=== PATIENT | female | born 1965 | race African-American/Black ===

== ENCOUNTER → 2018-12-17 | Outpatient (CLI) | payer OTHER ==
[~2018-12-17] MED LIST: ALEV220C2 PO; ATEN50TA2 PO; ATOR1TAB21 PO; BIOT1TAB PO; CENTTAB12 PO; DICL75TA PO; ESOM0.1C PO; FISH100049 PO; LEVO112T2; LEVO137T2 PO; LISI40TA PO; NIFE30TA50 PO; NORC1TAB4 PO; PANT20TA2; TAMO10TA PO
--- NOTE | 2018-12-17 17:55 | REP ---
LEFT KNEE, FIVE VIEWS: HISTORY: Knee pain. There is no acute fracture or dislocation. There is minimal narrowing of the medial knee joint space. The lateral knee joint space and patellofemoral joint space are normal in appearance. IMPRESSION: Degenerative change as described above. Electronically Signed by Luke Srivastava MD 12/17/2018 05:55 P
== END ==
LOC: M WUC 17:05
PROVIDERS: ATTEND Physician Assistant
DX: M17.12 Unilateral primary osteoarthritis, left knee (principal); M25.562 Pain in left knee

== ENCOUNTER 2018-12-18 15:45 | Emergency (ER) | payer OTHER ==
[~2018-12-18] VITALS: Ht 162.6 cm; Wt 63.6 kg
[~2018-12-18 15:45] MED LIST changes: -DICL75TA PO; -LEVO112T2; -PANT20TA2
[2018-12-18] MEDS ORDERED: PANT20TA2 (15:56)
[2018-12-18] MEDS ORDERED: LEVO112T2 (15:56)
[2018-12-18] MEDS ORDERED: DICL75TA PO (18:16)
[2018-12-18 18:30] VITALS: BP 114/68
== END 2018-12-18 18:32 | disposition home or self-care (01) ==
LOC: M ED 15:45
DX: M25.562 Pain in left knee (principal); R93.7 Abnormal findings on diagnostic imaging of other parts of musculoskeletal system; I10 Essential (primary) hypertension; E03.9 Hypothyroidism, unspecified; Z79.890 Hormone replacement therapy; Z79.899 Other long term (current) drug therapy

== ENCOUNTER → 2019-04-15 | Outpatient (CLI) | payer OTHER ==
[~2019-04-15] MED LIST changes: +DICL75TA PO; +GASTROGRAFIN SOLUTION 30ML (Q9963) As Ordered ONE; +ISOVUE-370 76% 100ML VIAL (Q9967) As Ordered ONE; +LEVO112T2 PO; +MULTTAB61 PO; +NAPR220C14 PO; -NORC1TAB4 PO; +NORC1TAB7 PO; +PANT20TA2 PO
--- NOTE | 2019-04-15 16:23 | REP ---
Clinical: Abnormal weight loss. Technique: Axial contrast enhanced images from the lung bases to the pubic symphysis using oral (per protocol) and 100 ml Isovue 370 intravenous contrast material with precontrast and delayed images of the abdomen as well as coronal and sagittal re-formations. Findings: Lung bases are clear. Visualized heart and pericardium normal. Mild fatty infiltration to the liver noted without focal hepatic lesion. Spleen, pancreas, gallbladder, bilateral adrenal glands and kidneys are normal. The enteric system is without obstruction or acute inflammatory process. Normal terminal ileum and appendix identified in the right lower quadrant. Pelvis demonstrates normal bladder and age-appropriate uterus/adnexa. Small uterine calcification may reflect myomatous changes. No pelvic fluid or ascites. No free air. No adenopathy. Abdominal aorta and vasculature normal. Surrounding musculoskeletal structures are intact and without focal osseous abnormality. Impression: Fatty infiltration to the liver. No acute abdominopelvic pathology appreciated. Electronically Signed by Girma Desir MD 04/15/2019 04:15 P
== END ==
LOC: M RAD 08:53
PROVIDERS: ATTEND Internal Medicine Gastroenterology
DX: K76.0 Fatty (change of) liver, not elsewhere classified (principal)
CPT/HCPCS: 74178; Q9963; Q9967

== ENCOUNTER 2019-06-05 09:45 | Day surgery (SDC) | payer OTHER ==
[~2019-06-05] VITALS: Ht 162.6 cm; Wt 60.8 kg
[~2019-06-05 09:45] MED LIST changes: +FERR325T18 PO; +FOLI1TAB11 PO; -GASTROGRAFIN SOLUTION 30ML (Q9963) As Ordered ONE; -ISOVUE-370 76% 100ML VIAL (Q9967) As Ordered ONE; +NS 1,000 ML IV ONE
--- NOTE | 2019-06-05 11:13 | ROOR ---
Patient Name: Yael Gill Procedure Date: 06/05/2019 10:46 AM Date of : 1965 Age: 53 Room: [facility] Gender: Female Note Status: Finalized Procedure: Upper GI endoscopy Indications: Heme positive stool, Weight loss Providers: Erich PIERCE MD Referring MD: CHARANJIT DONOHUE MD Requesting Provider: Medicines: Monitored Anesthesia Care Complications: No immediate complications. Procedure: Pre-Anesthesia Assessment: - The heart rate, respiratory rate, oxygen saturations, blood pressure, adequacy of pulmonary ventilation, and response to care were monitored throughout the procedure. The Endoscope was introduced through the mouth, and advanced to the second part of duodenum. The upper GI endoscopy was accomplished without difficulty. The patient tolerated the procedure well. Findings: The esophagus was normal. The stomach was normal. The examined duodenum was normal. Impression: - Normal esophagus. - Normal stomach. - Normal examined duodenum. - No specimens collected. Recommendation: - Perform a colonoscopy today. Erich Pierce MD Erich PIERCE MD 06/05/2019 11:12:35 AM Electronically signed by Erich PIERCE MD Number of Addenda: 0 Note Initiated On: 06/05/2019 10:46 AM Estimated Blood Loss: Estimated blood loss: none.
--- NOTE | 2019-06-05 11:31 | ROOR ---
Patient Name: Yael Gill Procedure Date: 06/05/2019 10:47 AM Date of : 1965 Age: 53 Room: [facility] Gender: Female Note Status: Finalized Procedure: Colonoscopy Indications: Heme positive stool, Weight loss Providers: Erich PIERCE MD Referring MD: CHARANJIT DONOHUE MD Requesting Provider: Medicines: Monitored Anesthesia Care Complications: No immediate complications. Procedure: Pre-Anesthesia Assessment: - The heart rate, respiratory rate, oxygen saturations, blood pressure, adequacy of pulmonary ventilation, and response to care were monitored throughout the procedure. The Colonoscope was introduced through the anus and advanced to 15 cm into the ileum. The colonoscopy was performed without difficulty. The patient tolerated the procedure well. The quality of the bowel preparation was good. Findings: The perianal and digital rectal examinations were normal. The colon (entire examined portion) appeared normal. The terminal ileum appeared normal. Small Internal Hemorrhoids. Impression: - Small Internal Hemorrhoids. - The entire colon is normal. - The examined portion of the ileum was normal. - No specimens collected. Recommendation: - Patient has a contact number available for emergencies. The signs and symptoms of potential delayed complications were discussed with the patient. Return to normal activities tomorrow. Written discharge instructions were provided to the patient. - Return to referring physician as previously scheduled. Erich Pierce MD Erich PIERCE MD 06/05/2019 11:30:46 AM Electronically signed by Erich PIERCE MD Number of Addenda: 0 Note Initiated On: 06/05/2019 10:47 AM Estimated Blood Loss: Estimated blood loss: none.
[2019-06-05 11:45] VITALS: BP 148/97
== END 2019-06-05 12:02 | disposition home or self-care (01) ==
LOC: M OPP 09:45
PROVIDERS: ATTEND Internal Medicine Gastroenterology
DX: K64.8 Other hemorrhoids (principal); R19.5 Other fecal abnormalities; R63.4 Abnormal weight loss; Z87.891 Personal history of nicotine dependence

== ENCOUNTER → 2019-08-13 | Outpatient (CLI) | payer OTHER ==
[~2019-08-13] MED LIST changes: +ISOVUE-370 76% 100ML VIAL (Q9967) As Ordered ONE; -NS 1,000 ML IV ONE
--- NOTE | 2019-08-14 05:24 | REP ---
Clinical: Follow-up nodule. Technique: Axial contrast enhanced images from the thoracic inlet to the upper abdomen with coronal and sagittal re-formations using 100 ml Isovue 370 intravenous contrast material. Findings: Lung tinajero are well-aerated, symmetric and clear. No consolidation, nodule or mass lesion. No effusion. No pneumothorax. Mediastinum demonstrates normal thoracic aorta, pulmonary vasculature and heart/pericardium. No adenopathy. Tracheobronchial tree is patent. Surrounding musculoskeletal structures are intact. Impression: Normal contrast enhanced chest CT. Electronically Signed by Girma Desir MD 08/14/2019 05:15 A
== END ==
LOC: M RAD 17:21
PROVIDERS: ATTEND Family Medicine
DX: R91.8 Other nonspecific abnormal finding of lung field (principal)

== ENCOUNTER → 2019-11-12 | Outpatient (CLI) | payer OTHER ==
[~2019-11-12] MED LIST changes: -ISOVUE-370 76% 100ML VIAL (Q9967) As Ordered ONE
[2019-11-12 13:33] LABS: FREE T4 0.94 NG/DL (0.76-1.46); THYROID STIMULATING HORMONE 0.519 uIU/ML (0.358-3.740)
== END ==
LOC: M LAB 12:16
PROVIDERS: ATTEND Internal Medicine Gastroenterology
DX: R19.7 Diarrhea, unspecified (principal)

== ENCOUNTER → 2019-11-13 | Outpatient (REF) | payer OTHER | LOC: M LAB REF 14:22 | PROVIDERS: ATTEND Internal Medicine Gastroenterology | DX: R19.7 Diarrhea, unspecified (principal) ==

== ENCOUNTER 2020-08-05 14:49 | Inpatient (IN) | payer OTHER ==
[~2020-08-05] VITALS: Ht 162.6 cm; Wt 65.1 kg
[~2020-08-05 14:49] MED LIST changes: -PANT20TA2 PO; +PANT20TA6 PO
[2020-08-05] MEDS ORDERED: NS 1,000 ML IV ONE ×3 (15:00→17:00)
[2020-08-05] MEDS ORDERED: E-Z-PAQUE 96% w/w SUSP 176GM BTL As Ordered ONE (15:07)
[2020-08-05] MEDS ORDERED: E-Z-HD 98% w/w 340GM SUSP BTL As Ordered ONE (15:07)
[2020-08-05] MEDS ORDERED: E-Z-GAS II EFFERVESCENT PACKET (SODIUM BICARB./CITRIC ACID/SIMETHICONE) As Ordered ONE (15:07)
[2020-08-05] MEDS ORDERED: FAMO1TAB11 PO (15:23)
[2020-08-05 15:26] LABS: BASO % 0.3 % (0.0-1.0); EOS # 0.1 10^3/uL (0.0-0.5); EOS % 0.9 % (0.0-3.0); HEMATOCRIT 32.9 % (36.0-47.0); HEMOGLOBIN 11.3 g/dl (12.0-15.5); LYMPH % 15.9 % (24.0-44.0); MEAN CORPUSCULAR HEMOGLOBIN 35.5 pg (27.0-33.0); MEAN CORPUSCULAR HGB CONC 34.3 g/dl (32.0-36.5); MEAN CORPUSCULAR VOLUME 103.5 fl (80.0-96.0); MONO # 0.6 10^3/uL (0.0-0.8); MONO % 9.4 % (0.0-5.0); NEUTROPHILS # 4.7 10^3/uL (1.5-8.5); NEUTROPHILS % 72.7 % (36.0-66.0); PLATELET COUNT, AUTOMATED 177 10^3/uL (150-450); RED BLOOD COUNT 3.18 10^6/uL (4.00-5.40); WHITE BLOOD COUNT 6.5 10^3/uL (4.0-10.0)
[2020-08-05 16:08] LABS: ALBUMIN 3.2 GM/DL (3.2-5.2); ALT/SGPT 93 U/L (12-78); BILIRUBIN,DIRECT 0.4 MG/DL (0.0-0.2); BLOOD UREA NITROGEN 32 MG/DL (7-18); CARBON DIOXIDE LEVEL 32 MEQ/L (21-32); CHLORIDE LEVEL 87 MEQ/L (98-107); CK-MB VALUE MASS < 1.0 NG/ML (<3.6); CPK CREATINE PHOSPHOKINASE 83 U/L (26-192); CREATININE FOR GFR 6.64 MG/DL (0.55-1.30); GLOMERULAR FILTRATION RATE 8.4 (>51); GLUCOSE, FASTING 93 MG/DL (70-100); LIPASE 457 U/L (73-393); POTASSIUM SERUM 2.7 MEQ/L (3.5-5.1); SODIUM LEVEL 132 MEQ/L (136-145); TROPONIN I < 0.02 NG/ML (< 0.10)
[2020-08-05] MEDS ORDERED: POTASSIUM CHLORIDE 10% LIQ 20 MEQ/15 ML UDC PO ONE ×2 (17:00→19:00)
[2020-08-05] MEDS ORDERED: POTASSIUM CHLORIDE 10% LIQ 20 MEQ/15 ML UDC PO SCH (17:00)
[2020-08-05] MEDS ORDERED: ONDANSETRON 4MG/2ML VIAL IV PRN (17:00)
[2020-08-05] MEDS ORDERED: ACET500T15 PO (17:45)
--- NOTE | 2020-08-05 17:45 | REPVR ---
PROCEDURE INFORMATION: Exam: CT Abdomen And Pelvis Without Contrast Exam date and time: 08/05/2020 4:35 PM Age: 54 years old Clinical indication: Abnormal findings; Abnormal lab test; Abnormal kidney function lab tests; Additional info: Renal failure TECHNIQUE: Imaging protocol: Computed tomography of the abdomen and pelvis without contrast. Radiation optimization: All CT scans at this facility use at least one of these dose optimization techniques: automated exposure control; mA and/or kV adjustment per patient size (includes targeted exams where dose is matched to clinical indication); or iterative reconstruction. COMPARISON: CT ABD PELVIS W/O FOL BY WIT 04/15/2019 10:44 AM Stomach and bowel: On the client executive image there is a large amount of barium throughout the stomach and small bowel and right colon. Because of the high concentration of barium within the bowel the CT scan of the abdomen was canceled immediately after the client executive image was obtained. There are no CT images to evaluate. IMPRESSION: Only a single client executive image was obtained and the patient had a large concentration of barium through the bowel from a recent esophagram. Therefore the CT portion of the exam was canceled. Electronically signed by: Toni Blair On 08/05/2020 17:45:07 PM
--- NOTE | 2020-08-05 17:58 | REPVR ---
PROCEDURE INFORMATION: Exam: US Retroperitoneal Limited, Kidneys Exam date and time: 08/05/2020 4:52 PM Age: 54 years old Clinical indication: Condition or disease; Other: Jaret TECHNIQUE: Imaging protocol: Real-time ultrasound of the retroperitoneum with image documentation. Examination was focused on the kidneys. COMPARISON: CT ABD PELVIS W/O CONTRAST 08/05/2020 4:36 PM FINDINGS: Right kidney: The right kidney is normal in size and echogenicity, measuring 10.6 x 5.5 x 4.7 cm. No hydronephrosis. No echogenic shadowing foci to suggest renal calculi. Left kidney: The left kidney is normal in size and echogenicity, measuring 10.8 x 5.4 x 5.4 cm. No hydronephrosis. No echogenic shadowing foci to suggest renal calculi. Incidental note of a prominent column of Nestor. Bladder: Bladder is grossly unremarkable. Bilateral ureteral jets were visualized. IMPRESSION: 1. Normal kidneys bilaterally. No hydronephrosis. Electronically signed by: Komal Quezada On 08/05/2020 17:58:13 PM
--- NOTE | 2020-08-05 18:14 | REPVR ---
PROCEDURE INFORMATION: Exam: CT Neck Without Contrast Exam date and time: 08/05/2020 5:32 PM Age: 54 years old Clinical indication: Dysphagia / difficulty swallowing TECHNIQUE: Imaging protocol: Computed tomography images of the neck without contrast. Radiation optimization: All CT scans at this facility use at least one of these dose optimization techniques: automated exposure control; mA and/or kV adjustment per patient size (includes targeted exams where dose is matched to clinical indication); or iterative reconstruction. COMPARISON: 1. XA Esophagram Barium Swallow 08/05/2020 3:40 PM 2. SR - CT Chest with contrast 08/13/2019 6:01:12 PM FINDINGS: Nasopharynx: Unremarkable. Oropharynx: Unremarkable. No significant tonsillar enlargement. Hypopharynx: Unremarkable. Larynx: Unremarkable. Normal epiglottis. Retropharyngeal space: Unremarkable. Submandibular/Parotid glands: Normal. Glands are normal in size. Thyroid: Normal. No enlarged or calcified nodules. Lymph nodes: Unremarkable. No lymphadenopathy. Trachea: Visualized trachea is unremarkable. Lungs: There is biapical nodular pleuroparenchymal scarring again seen. Bones/joints: Unremarkable. No acute fracture. Soft tissues: Unremarkable. No significant soft tissue swelling. IMPRESSION: No acute findings. Electronically signed by: Komal Quezada On 08/05/2020 18:14:27 PM
[2020-08-05 18:26] LABS: IONIZED CALCIUM 4.2 MG/DL (4.5-5.3)
[2020-08-05 18:42] VITALS: BP 134/83
[2020-08-05] MEDS: METOCLOPRAMIDE INJ 10MG/2ML VIAL (J2765 PER 1) IV SCH ×2 (18:50→21:18)
[2020-08-05 20:00] VITALS: BP 107/65
[2020-08-05 20:29] LABS: HEPATITIS A ANTIBODY IGM NEGATIVE (NEGATIVE); HEPATITIS B CORE ANTIBODY IGM NEGATIVE (NEGATIVE); HEPATITIS B SURFACE ANTIGEN NEGATIVE (NEGATIVE); HEPATITIS C VIRUS ABY INDEX 0.1 INDEX (<0.8)
[2020-08-05 21:41] LABS: CREATININE,RANDOM URINE 99.4 MG/DL; POTASSIUM RANDOM URINE 9.2 MEQ/L
[2020-08-05 22:24] LABS: TOTAL PROTEIN,RANDOM URINE 43.3 MG/DL (0.0-12.0)
[2020-08-06] VITALS: BP 92/54
[2020-08-06 00:32] LABS: CALCIUM LEVEL 7.6 MG/DL (8.5-10.1); CREATININE FOR GFR 3.94 MG/DL (0.55-1.30); GLOMERULAR FILTRATION RATE 15.3 (>51)
[2020-08-06 04:00] VITALS: BP 107/62
[2020-08-06 05:35] LABS: HEMOGLOBIN A1c 4.9 %
[2020-08-06 05:40] LABS: BLOOD UREA NITROGEN 24 MG/DL (7-18); C REACTIVE PROTEIN QUANTITATIV 5.47 MG/DL (0.00-0.30); CALCIUM LEVEL 7.4 MG/DL (8.5-10.1); CARBON DIOXIDE LEVEL 32 MEQ/L (21-32); CHLORIDE LEVEL 107 MEQ/L (98-107); COMPLEMENT C3 114 MG/DL (90-180); CREATININE FOR GFR 3.31 MG/DL (0.55-1.30); GLOMERULAR FILTRATION RATE 18.7 (>51); GLUCOSE, FASTING 86 MG/DL (70-100); POTASSIUM SERUM 3.3 MEQ/L (3.5-5.1); SODIUM LEVEL 142 MEQ/L (136-145)
[2020-08-06 08:00] VITALS: BP 103/59
[2020-08-06] MEDS: PANTOPRAZOLE 40MG VIAL (C9113 PER 1) IV SCH (08:24)
[2020-08-06] MEDS: METOCLOPRAMIDE INJ 10MG/2ML VIAL (J2765 PER 1) IV SCH ×4 (08:24→21:38)
[2020-08-06] MEDS: KCL 40MEQ in NS 1000ML 1,000 ML IV SCH ×2 (08:25→12:42)
[2020-08-06] MEDS ORDERED: FLUBLOK(EGG FREE)(QUAD)INFLUENZA VACC 0.5ML SYRINGE 18YRS & OLDER IM ONE (09:00)
[2020-08-06 12:00] VITALS: BP 109/63
[2020-08-06] MEDS ORDERED: FIORICET TAB PO PRN (15:15)
[2020-08-06] MEDS ORDERED: RIZATRIPTAN BENZOATE 10 MG TAB PO PRN (15:15)
[2020-08-06 16:13] LABS: CALCIUM LEVEL 8.1 MG/DL (8.5-10.1); CREATININE FOR GFR 1.87 MG/DL (0.55-1.30); GLOMERULAR FILTRATION RATE 36.2 (>51); POTASSIUM SERUM 4.1 MEQ/L (3.5-5.1)
[2020-08-06 16:21] VITALS: BP 121/74
[2020-08-06 22:00] VITALS: BP 106/69
--- NOTE | 2020-08-06 22:08 | HPE ---
DATE OF ADMISSION: 08/05/2020 CHIEF COMPLAINT: Nausea, vomiting, dysphagia, and dizziness, 25-pound weight loss. This is a 54-year-old female who presents to the emergency room with complaints of nausea and vomiting for a few days this past week, about three times or four times daily with dysphagia to solids, better with liquids for the past 2 days, feeling like food is getting stuck in her chest. She has also complained of some lightheadedness. No odynophagia. No fever, chills, or abdominal pain. She is having some loose stools again initially but has had no bowel movement all week this week. Patient feels her food is getting in her stomach. She had had decrease in oral intake but says that she is able to drink about 5-6 cups of liquids during the day despite the vomiting. At home, patient was taking her atenolol, lisinopril, and Adalat. She did have prior evaluation for dysphagia and weight loss and heme-positive stool with an esophagogastroduodenoscopy (EGD) and colonoscopy by Dr. Pierce in May 2019. Colonoscopy showed internal hemorrhoids and rectal bleed. EGD showed a normal esophagus. Patient had an esophagram that showed a hiatal hernia as well as reflux. Hospitalist was called to admit due to finding of a creatinine of 6. Patient denied any non-steroidal anti-inflammatory use and denies any prior history of any rheumatological disease in the past. No joint pains, No fever, chills, or shortness of breath. No recent travel. Patient took some Tylenol for some discomfort. Otherwise, no sore throat. PAST MEDICAL HISTORY: 1. Hypothyroidism. 2. Hypertension. 3. Internal hemorrhoids. 4. Rectal bleed due to hemorrhoids. Normal EGD. 5. Hypothyroidism. 6. Hypertension. PAST SURGICAL HISTORY: Colonoscopy and EGD, Dr. Pierce, 06/05/2019. ALLERGIES: No known drug allergies. HOME MEDICATIONS: - atenolol 50 mg daily - famotidine 20 twice a day - Synthroid 112 mcg daily - lisinopril 40 daily - nifedipine 30 mg daily - Naprosyn 220 mg as needed for pain FAMILY HISTORY: Mother and father with hypertension, diabetes. In the mother's side of the family, breast cancer. SOCIAL HISTORY: Works in the [employer] at [place]. No tobacco abuse. Drinks alcohol three times a week. Lives with her the two sons. REVIEW OF SYSTEMS: Per history of present illness (HPI). A 12-point system otherwise negative. PHYSICAL EXAMINATION: Temperature 97.5, pulse 87, respiratory rate 16, blood pressure is 89/53, 97% on room air. GENERAL: Patient is awake, alert, oriented to person, place, and time, answering questions appropriately without any respiratory distress. No jugular venous distention (JVD) or thyromegaly. Dry mucous membranes. Anicteric sclerae. Face is symmetric. Tongue is midline. No thyromegaly. LUNGS: Clear to auscultation. No wheezing, rales, or rhonchi. Air entry is equal bilaterally. No adventitious breath sounds. HEART: S1, S2, sinus rhythm. No murmurs, rubs, or gallops. ABDOMEN: Soft, nontender, nondistended. Positive bowel sounds. No costovertebral angle (CVA) tenderness. EXTREMITIES: No cyanosis, clubbing, or any pitting edema. LABORATORY DATA: White count 6.5, hemoglobin 11, hematocrit 32, platelet count 177. Sodium 132, potassium 2.7, chloride 87, bicarbonate 32, BUN 32, creatinine 6.64, glucose 93, lactic acid 2.4, calcium 9. Total bilirubin 1, direct bilirubin 0.4, AST 158, ALT 93, alkaline phosphatase 88. Total CK 83, MB fraction less than 1, troponin less than 0.02. Total protein 7, albumin 3.2. Lipase 457. ASSESSMENT AND PLAN: This is a 54-year-old female with history of hypothyroidism, hypertension, internal hemorrhoids with rectal bleed, reflux, hiatal hernia, and hypercholesterolemia who presents to the emergency room with 1-week history of nausea and vomiting at home, three to four times daily, which abated over the past 2 days with now complaints of dysphagia to solids for the past 2 days, feeling like food is getting stuck in her chest. Patient had an esophagram, which shows reflux and a hiatal hernia. Noted to have a creatinine of 6 and had been vomiting and continually using her atenolol, lisinopril, and Adalat. Hospitalist was called to admit for the following acute issues. She will be admitted as an inpatient for 2 midnights. IMPRESSION: 1. Acute kidney injury, most likely due to prerenal causes with vomiting and continued use of her lisinopril, atenolol with orthostatic hypotension. 2. Dysphagia to solids with weight loss of 25 pounds. 3. Hypokalemia secondary to vomiting. 4. Abnormal liver function tests with complaints of vomiting. 5. Hypertension, currently with normal blood pressure. 6. History of rectal bleed due to internal hemorrhoids. 7. Hypothyroidism. 8. Hiatal hernia with gastroesophageal reflux. 9. History of hypercholesterolemia. 10. A 25-pound weight loss. PLAN: Due to electrolyte abnormalities with potassium of 2.7 and creatinine of 6.64, patient will be admitted to progressive care unit (PCU) under telemetry to rule out arrhythmias with low potassium levels. She will be kept on potassium liquid due to complaints of dysphagia to solids. Metabolic panel every 6 hours until patient's potassium, magnesium, ionized calcium are within normal limits. At this time, patient's renal failure thought to be secondary to volume loss from persistent vomiting at home, most likely related to the hiatal hernia and reflux that she has had. She will be given Reglan 10 mg intravenous (IV) every 6 hours was Protonix 40 IV twice a day. Avoid nephrotoxins. Renally dose all medications. To rule out obstructive causes, will obtain renal ultrasound and Casillas catheter is to be placed with strict intake and output and daily weights. Chest x-ray has been ordered to rule out pulmonary edema, although her lungs sound clear on auscultation. At this time we will avoid nephrotoxins, and we will continue to hold her lisinopril. Due to orthostatic hypotension we will also hold her atenolol. Due to weight loss of 25 pounds, patient's thyroid stimulating hormone (TSH) and A1c will be checked to rule out new onset of diabetes or severe hypothyroidism. If patient worsens, we will consult nephrology for assistance in management. Gastrointestinal (GI) will be consulted if patient has persistent symptoms. She did have a recent EGD back in May 2019. May need to repeat if more alarm symptoms are present. Deep venous thrombosis (DVT) prophylaxis with compression stockings. Patient is a full code. Diet will be clears. Advance to renal diet. Check liver function tests. Ultrasound of the gallbladder as outpatient. Check hepatitis serology, YASMIN. Rule out rheumatologic disorder, such as lupus, in light of the creatinine being at 6. Will check an YASMIN, anti-Betancur, [id number] DNA. MTDD
[2020-08-07 00:07] LABS: CALCIUM LEVEL 7.7 MG/DL (8.5-10.1); CREATININE FOR GFR 1.49 MG/DL (0.55-1.30); POTASSIUM SERUM 3.8 MEQ/L (3.5-5.1)
[2020-08-07 06:00] VITALS: BP 116/80
[2020-08-07 06:30] LABS: CALCIUM LEVEL 7.6 MG/DL (8.5-10.1); CREATININE FOR GFR 1.25 MG/DL (0.55-1.30); GLOMERULAR FILTRATION RATE 57.6 (>51); POTASSIUM SERUM 4.1 MEQ/L (3.5-5.1)
[2020-08-07] MEDS ORDERED: REGL5TAB2 PO ×2 (08:28→09:22)
[2020-08-07] MEDS ORDERED: PRIL20TA2 PO ×2 (08:28→09:22)
[2020-08-07] MEDS ORDERED: SELF1KIT MC (08:30)
[2020-08-07] MEDS: PANTOPRAZOLE 40MG VIAL (C9113 PER 1) IV SCH (09:28)
[2020-08-07] MEDS: METOCLOPRAMIDE INJ 10MG/2ML VIAL (J2765 PER 1) IV SCH (09:29)
--- NOTE | 2020-08-07 13:07 | IPN ---
DATE: 08/06/2020 Patient's dysphagia is slightly improved. Still with some nausea without vomiting. No shortness of breath. No lightheadedness or dizziness. Output overnight was 1.1 liters, input of 1.64 liters. Currently weight is 58.1 kg. VITAL SIGNS: Temperature 98.5, pulse 73, respiratory rate 16, blood pressure 103/59, 98% on room air. GENERAL: Patient is awake, alert, oriented times three, answering questions appropriately. No icterus or jaundice. No use of respiratory accessory muscles. Speech is fluent. Tongue is midline. Moist mucous membranes. No jugular venous distention (JVD) or thyromegaly. LUNGS: Clear to auscultation. No wheezing, rales, or rhonchi. HEART: S1, S2, sinus tachycardia. No murmurs, rubs, or gallops. ABDOMEN: Soft, nontender, nondistended. Positive bowel sounds. No hepatosplenomegaly. No abdominal bruit. EXTREMITIES: No cyanosis, clubbing, or pitting edema. LABORATORY DATA: White count 6, hemoglobin 11, hematocrit 32, platelet count 177. Sodium 142, potassium 3.3, chloride 107, bicarbonate 32, BUN 24, creatinine 3.3, glucose 86, calcium 7.4. CRP of 5.4. Blood culture pending. IMAGING STUDIES: CT neck negative. Renal ultrasound normal. CT abdomen and pelvis pending report. Esophagram: Hiatal hernia, reflux. ASSESSMENT AND PLAN: A 54-year-old female with history of right breast atypical ductal hyperplasia (ADH), diagnosed in 2016, on Tamoxifen, iron deficiency anemia, hypertension, cholesterolemia, presented with a 25-pound weight loss with negative colonoscopy. Esophagogastroduodenoscopy (EGD) negative on 06/05/[address] Pierce with internal hemorrhoids causing rectal bleed, presented to the emergency room with intractable nausea, vomiting, dehydration, decreased oral intake with continued use of her lisinopril, presents with a creatinine of 0.64. IMPRESSION: 1, Acute kidney injury secondary to lisinopril, nausea, vomiting. 2. Intractable nausea and vomiting secondary to hiatal hernia and gastroesophageal reflux. 3. History of internal hemorrhoids, causing rectal bleed. 4. Chronic iron deficiency anemia. 5. History of right breast ADH. 6. Hypokalemia. 7. Hypocalcemia. PLAN: Renal ultrasound is negative. No hydronephrosis or kidney stone. Patient responded to 2 liters of fluids but still at stage V renal dysfunction. Will check UPEP and SPEP to rule out multiple myeloma. Check hemoglobin electrophoresis for anemia. Patient is responding to IV fluids. Will continue with IV fluids. Monitor for respiratory distress. Supplemented potassium this morning via IV fluids. MTDD
[2020-08-08 09:58] LABS: PTH INTACT 190.9 PG/ML (18.5-88.0); TOTAL 25(OH) VITAMIN D 12.5 NG/ML (30.0-100.0); TOTAL PROTEIN 5.3 GM/DL (6.4-8.2)
[2020-08-08 13:08] LABS: ANTINUCLEAR ANTIBODIES DIRECT Negative (Negative)
[2020-08-09 13:14] LABS: ALBUMIN 2.95 GM/DL (3.29-5.55); ALBUMIN % 55.6 % (55.8-66.1); ALPHA-1-GLOBULIN % 6.6 % (2.9-4.9); ALPHA-1-GLOBULINS 0.35 GM/DL (0.17-0.41); ALPHA-2-GLOBULINS % 15.1 % (7.1-11.8); BETA-1-GLOBULINS 0.23 GM/DL (0.28-0.60); BETA-1-GLOBULINS % 4.4 % (4.7-7.2); BETA-2-GLOBULINS % 5.6 % (3.2-6.5); GAMMA GLOBULIN % 12.7 % (11.1-18.8); GAMMA GLOBULINS 0.67 GM/DL (0.65-1.58)
[2020-08-09 16:11] LABS: HEMOGLOBIN A 97.7 % (96.4-98.8); HEMOGLOBIN A2 2.3 % (1.8-3.2); HGB SOLUBILITY Negative (Negative)
--- NOTE | 2020-08-09 16:55 | ECGEPIP ---
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
[2020-08-15 18:07] LABS: ANTI DS-DNA AB Negative (Negative); COMPLEMENT C2 2.7 mg/dL (1.4-3.3); COMPLEMENT TOTAL (CH50) 40 U/mL (>41); RNP ANTIBODY < 0.2 AI (0.0-0.9); SMITHS ANTIBODY < 0.2 AI (0.0-0.9); VITAMIN D 1,25 DIHYDROXY 38.1 pg/mL (19.9-79.3)
--- NOTE | 2020-08-23 12:13 | DSES ---
DATE OF ADMISSION: 08/05/2020 DATE OF DISCHARGE: 08/07/2020 PRIMARY DISCHARGE DIAGNOSES: 1. Hiatal hernia. 2. Severe gastroesophageal reflux disease. 3. Dysphagia to solids. 4. Acute kidney injury due to lisinopril and vomiting. 5. Vomiting secondary to reflux disease and hiatal hernia. 6. Hypokalemia secondary to vomiting. 7. Twenty-five pound weight loss. DISCHARGE MEDICATIONS: - Prilosec 20 mg daily - Reglan 5 mg before each meal nightly - Atenolol 50 daily - Famotidine 20 twice a day - Levothyroxine 112 mcg daily. - Lisinopril 40 daily. - Nifedipine 30 mg daily - Acetaminophen 1 gram q. 8 as needed for pain. DISCHARGE INSTRUCTIONS: The patient is to hold atenolol and lisinopril if systolic pressure is less than 140. If patient develops nausea or vomiting, decreased oral intake or diarrhea, patient is to hold her lisinopril. Patient is to call Dr. Pierce's office regarding dysphagia to solids for EGD and repeat biopsy. Patient to be referred to surgery for hiatal hernia to check for indication for repair. Further workup for 20 pound weight loss to be done by primary care physician and to follow up at the [facility] since Dr. Chen has left the practice. HOSPITAL COURSE: [id number]old female presented to the emergency room with one-week history of nausea and vomiting at home with continued use of lisinopril and atenolol; presented with orthostasis and hypotension; found to have acute kidney injury and was taking Naprosyn as outpatient with a creatinine of 6 and hypokalemia with potassium of 2.7 due to vomiting. She had no metabolic acidosis and no pulmonary edema; no confusion. She was admitted and started on IV fluids, remained at positive balance with 5 liters given over the past three days. Renal ultrasound had no hydronephrosis. Kidney function returned back to normal to 1.25 after hydration and supplementation for potassium with admission potassium of 2.1; discharge potassium of 4.1. Patient's atenolol and lisinopril had been held during the admission with subsequent improvement in her blood pressure from admission blood pressure of 80/51 to blood pressure 116/80. Patient was instructed to hold off on her atenolol and lisinopril for blood pressure less than 140 and to follow up as outpatient with her primary care physician within five days of discharge. PHYSICAL EXAMINATION ON DISCHARGE: Temperature 98.4, pulse 82, respiratory rate 18, blood pressure is 116/80; 100% on room air. Generally awake, alert, oriented x3; answering questions appropriately. No icterus or jaundice. Neck is supple; full range of motion. Moist mucous membranes. Lungs are clear to auscultation; no wheezing, rales or rhonchi. Heart: S1, S2; sinus rhythm. Abdomen is soft, nontender, nondistended; positive bowel sounds. Extremities: No cyanosis, clubbing or pitting edema. LABORATORY DATA: White count is 6.5, hemoglobin 11, hematocrit 32, platelet count 177. Sodium 140, potassium 4, chloride 113, bicarb 21, BUN 15, creatinine 1.25, glucose of 82. SPEP and UPEP pending. C-reactive protein 5.4. A1c was normal at 4.9. IMAGING STUDIES: CT of the neck: No acute findings. Renal ultrasound: No hydronephrosis, normal kidneys bilaterally. 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 Patient had large barium; therefore, CT portion was canceled. Esophagram: Hiatal hernia and gastroesophageal reflux disease. TIME SPENT ON DISCHARGE: Thirty (30) minutes. MTDD
--- NOTE | 2020-08-25 16:18 | REP ---
ESOPHAGRAM SINGLE CONTRAST The procedure was performed under the direct supervision of Dr. Guadarrama. The images were reviewed with Dr. Guadarrama. A single view PA chest x-ray is submitted as a speech coach film. The superior mediastinal structures are midline. The heart size is within normal limits. The lungs are clear. Liquid barium was administered in the erect and prone oblique positions in order to perform a single-contrast esophagram examination. The oral and pharyngeal stages of deglutition are unremarkable. Esophageal transport is prompt and efficient, and there is no esophagitis, stricture, or mucosal ring. There is a sliding-type hiatal hernia. There is gastroesophageal reflux demonstrated to the level of the thoracic inlet. IMPRESSION: There is a sliding-type hiatal hernia. There is gastroesophageal reflux demonstrated to the level of the thoracic inlet. Otherwise, unremarkable single- contrast esophagram examination. 0.8 minutes of fluoroscopy time was utilized for this procedure. [facility]
== END 2020-08-07 10:31 | disposition home or self-care (01) | DRG 684 ==
LOC: M ED 14:49 → M ED INP 16:53 → M PCU 18:22 → M MSPAV 08-06 16:15
PROVIDERS: ADMIT General Practice; ATTEND General Practice
DX: N17.9 Acute kidney failure, unspecified (principal); E03.9 Hypothyroidism, unspecified; I10 Essential (primary) hypertension; K64.8 Other hemorrhoids; R13.10 Dysphagia, unspecified; I95.1 Orthostatic hypotension; E87.6 Hypokalemia; K44.9 Diaphragmatic hernia without obstruction or gangrene; K21.9 Gastro-esophageal reflux disease without esophagitis; E78.00 Pure hypercholesterolemia, unspecified; R63.4 Abnormal weight loss; D50.9 Iron deficiency anemia, unspecified; R11.2 Nausea with vomiting, unspecified; E83.51 Hypocalcemia; Z79.899 Other long term (current) drug therapy

== ENCOUNTER 2020-11-22 21:14 | Emergency (ER) | payer OTHER ==
[~2020-11-22] VITALS: Ht 162.6 cm; Wt 58.6 kg
[~2020-11-22 21:14] MED LIST changes: +ACET500T15 PO; +FAMO1TAB11 PO; +PRIL20TA2 PO; +REGL5TAB2 PO; +SELF1KIT MC
[2020-11-22 21:15] VITALS: BP 130/76
[2020-11-22] MEDS ORDERED: AMOXICILLIN 500 MG CAP PO ONE (22:30)
[2020-11-22] MEDS ORDERED: AMOX500C PO (22:37)
== END 2020-11-22 22:52 | disposition home or self-care (01) ==
LOC: M ED 21:14
DX: J02.0 Streptococcal pharyngitis (principal); I10 Essential (primary) hypertension; E03.9 Hypothyroidism, unspecified; Z79.899 Other long term (current) drug therapy

== ENCOUNTER → 2021-07-27 | Outpatient (REF) | payer OTHER ==
[~2021-07-27] MED LIST changes: +AMOX500C PO; -LISI40TA PO; +LISI40TA4 PO
[2021-08-04 03:07] LABS: CALPROTECTIN STOOL 28 ug/g (0-120); PANCREATIC ELASTASE STOOL >500 (>200)
== END ==
LOC: M LAB REF 13:59
PROVIDERS: ATTEND Internal Medicine Gastroenterology
DX: R19.7 Diarrhea, unspecified (principal); R63.4 Abnormal weight loss

== ENCOUNTER → 2022-06-04 | Outpatient (CLI) | payer OTHER | LOC: M WHC 12:53 | PROVIDERS: ATTEND Family Medicine | DX: Z12.31 Encounter for screening mammogram for malignant neoplasm of breast (principal); Z78.0 Asymptomatic menopausal state ==

== ENCOUNTER 2022-09-25 07:35 | Emergency (ER) | payer OTHER, SELFPAY ==
[~2022-09-25] VITALS: Ht 162.6 cm; Wt 55.9 kg
[~2022-09-25 07:35] MED LIST changes: -TAMO10TA PO; +TAMO10TA8 PO
[2022-09-25 07:36] VITALS: BP 140/95
[2022-09-25] MEDS ORDERED: FERR325T18 PO (07:46)
[2022-09-25 11:52] LABS: BASO # 0.1 10^3/uL (0.0-0.2); BASO % 0.5 % (0.0-1.0); EOS % 0.1 % (0.0-3.0); HEMATOCRIT 32.1 % (36.0-47.0); LYMPH # 1.4 10^3/uL (1.5-5.0); LYMPH % 13.9 % (24.0-44.0); MEAN CORPUSCULAR HEMOGLOBIN 37.5 pg (27.0-33.0); MEAN CORPUSCULAR HGB CONC 34.3 g/dl (32.0-36.5); MEAN CORPUSCULAR VOLUME 109.6 fl (80.0-96.0); MONO % 9.4 % (2.0-8.0); NEUTROPHILS # 7.7 10^3/uL (1.5-8.5); NEUTROPHILS % 75.7 % (36.0-66.0); PLATELET COUNT, AUTOMATED 284 10^3/uL (150-450); RED BLOOD COUNT 2.93 10^6/uL (4.00-5.40); WHITE BLOOD COUNT 10.1 10^3/uL (4.0-10.0)
[2022-09-25 12:46] LABS: BLOOD UREA NITROGEN 8 MG/DL (7-18); CALCIUM LEVEL 8.9 MG/DL (8.5-10.1); CARBON DIOXIDE LEVEL 21 MEQ/L (21-32); CHLORIDE LEVEL 107 MEQ/L (98-107); CREATININE FOR GFR 0.92 MG/DL (0.55-1.30); GLOMERULAR FILTRATION RATE > 60.0 (>51); GLUCOSE, FASTING 115 MG/DL (70-100); POTASSIUM SERUM 3.2 MEQ/L (3.5-5.1); SODIUM LEVEL 140 MEQ/L (136-145); URIC ACID 8.9 MG/DL (2.6-6.0)
[2022-09-25] MEDS ORDERED: INDOMETHACIN 25 MG CAP PO ONE (13:30)
[2022-09-25] MEDS ORDERED: INDO50CA91 PO ×2 (13:46→14:43)
[2022-09-25] MEDS ORDERED: POTASSIUM CHLORIDE 10MEQ SR TABLET PO ONE (13:50)
== END 2022-09-25 14:40 | disposition home or self-care (01) ==
LOC: M ED 07:35
DX: M10.071 Idiopathic gout, right ankle and foot (principal); E87.6 Hypokalemia; I10 Essential (primary) hypertension; E78.5 Hyperlipidemia, unspecified; K21.9 Gastro-esophageal reflux disease without esophagitis; E03.9 Hypothyroidism, unspecified; Z79.890 Hormone replacement therapy; Z79.899 Other long term (current) drug therapy

== ENCOUNTER → 2022-10-04 | Outpatient (CLI) | payer OTHER ==
[~2022-10-04] MED LIST changes: +INDO50CA91 PO
== END ==
LOC: M RAD 15:48
PROVIDERS: ATTEND Physician Assistant Medical
DX: M19.071 Primary osteoarthritis, right ankle and foot (principal)

== ENCOUNTER → 2023-05-10 | Outpatient (CLI) | payer OTHER ==
[~2023-05-10] MED LIST changes: +NIFE-3 PO; -NIFE30TA50 PO
[2023-05-10 09:07] LABS: PERCENT SATURATION 97.7 % (13.2-45.0)
[2023-05-10 09:08] LABS: IMMUNOGLOBULIN A 263.3 MG/DL (40-350)
[2023-05-10 09:09] LABS: FOLATE 3.4 NG/ML (>5.4); FREE T4 1.22 NG/DL (0.89-1.76); THYROID STIMULATING HORMONE 0.449 uIU/ML (0.55-4.78)
[2023-05-14 17:08] LABS: GASTRIN 44 pg/mL (0-115); TISSUE TRANSGLUTAMINASE IgA <2 U/mL (0-3)
== END ==
LOC: M LAB 08:04
PROVIDERS: ATTEND Internal Medicine Gastroenterology
DX: R19.7 Diarrhea, unspecified (principal); R63.4 Abnormal weight loss; D64.9 Anemia, unspecified

== ENCOUNTER → 2023-05-22 | Outpatient (CLI) | payer OTHER ==
[~2023-05-22] MED LIST changes: +GLUCAGON INJ 1MG VIAL As Ordered ONE; +ISOVUE-370 76% 100ML VIAL As Ordered ONE; +NEULUMEX 0.1% SUSPENSION 450ML BOTTLE (FORMERLY VOLUMEN) As Ordered ONE
== END ==
LOC: M RAD 08:29
PROVIDERS: ATTEND Internal Medicine Gastroenterology
DX: R19.7 Diarrhea, unspecified (principal)

== ENCOUNTER 2023-07-02 09:16 | Day surgery (SDC) | payer OTHER ==
[~2023-07-02] VITALS: Ht 162.6 cm; Wt 53.1 kg
[~2023-07-02 09:16] MED LIST changes: -GLUCAGON INJ 1MG VIAL As Ordered ONE; -ISOVUE-370 76% 100ML VIAL As Ordered ONE; +LOPE1CAP5 PO; +MULT-90 PO; -NEULUMEX 0.1% SUSPENSION 450ML BOTTLE (FORMERLY VOLUMEN) As Ordered ONE; +NS 1,000 ML IV ONE; +SYNT150T PO
[2023-07-02 11:42] VITALS: TEMP 98.1
[2023-07-02 12:07] VITALS: BP 125/75; O2SAT 96
== END 2023-07-02 12:17 | disposition home or self-care (01) ==
LOC: M OPP 09:16
PROVIDERS: ATTEND Internal Medicine Gastroenterology
DX: K63.5 Polyp of colon (principal); Q43.8 Other specified congenital malformations of intestine; K29.70 Gastritis, unspecified, without bleeding; K22.89 Other specified disease of esophagus; R19.7 Diarrhea, unspecified; R63.4 Abnormal weight loss; Z79.1 Long term (current) use of non-steroidal anti-inflammatories (NSAID); Z79.890 Hormone replacement therapy; Z79.899 Other long term (current) drug therapy; F17.200 Nicotine dependence, unspecified, uncomplicated

== ENCOUNTER → 2023-09-04 | Outpatient (CLI) | payer OTHER ==
[~2023-09-04] MED LIST changes: +LIQUID POLIBAR PLUS 105% w/v 750ML BTL As Ordered ONE; -NS 1,000 ML IV ONE
== END ==
LOC: M RAD 08:43
PROVIDERS: ATTEND Internal Medicine Gastroenterology
DX: R63.4 Abnormal weight loss (principal); R19.7 Diarrhea, unspecified

== ENCOUNTER 2024-01-17 05:17 | Inpatient (IN) | payer OTHER ==
[2024-01-17] VITALS (48 sets, daily range): BP systolic 78–119; BP diastolic 50–75; TEMP 98.2–98.8; O2SAT 93–100
[~2024-01-17] VITALS: Ht 162.6 cm; Wt 57.8 kg
[~2024-01-17 05:17] MED LIST changes: -LIQUID POLIBAR PLUS 105% w/v 750ML BTL As Ordered ONE
[2024-01-17] MEDS: METOCLOPRAMIDE INJ 10MG/2ML VIAL IV ONE (05:59)
[2024-01-17] MEDS: NS 2,070 ML in IV 1 EA IV ONE (06:00)
[2024-01-17 06:07] LABS: BASO % 0.2 % (0.0-1.0); EOS % 0.1 % (0.0-3.0); HEMATOCRIT 24.5 % (36.0-47.0); HEMOGLOBIN 8.9 g/dl (12.0-15.5); LYMPH # 0.8 10^3/uL (1.5-5.0); LYMPH % 9.1 % (24.0-44.0); MEAN CORPUSCULAR HEMOGLOBIN 36.9 pg (27.0-33.0); MEAN CORPUSCULAR HGB CONC 36.3 g/dl (32.0-36.5); MEAN CORPUSCULAR VOLUME 101.7 fl (80.0-96.0); MONO # 0.9 10^3/uL (0.0-0.8); MONO % 11.2 % (2.0-8.0); NEUTROPHILS # 6.6 10^3/uL (1.5-8.5); NEUTROPHILS % 78.8 % (36.0-66.0); PLATELET COUNT, AUTOMATED 149 10^3/uL (150-450); RED BLOOD COUNT 2.41 10^6/uL (4.00-5.40); WHITE BLOOD COUNT 8.4 10^3/uL (4.0-10.0)
[2024-01-17] MEDS ORDERED: LORazepam 2 MG TAB PO PRN (06:45)
[2024-01-17 06:53] LABS: ALBUMIN 2.1 G/DL (3.2-5.2); BILIRUBIN,DIRECT 1.1 MG/DL (<0.4); BILIRUBIN,TOTAL 1.5 MG/DL (0.3-1.2); CALCIUM LEVEL 4.3 MG/DL (8.5-10.1); CK-MB VALUE MASS 1.3 NG/ML (<3.6); CREATININE FOR GFR 1.6 MG/DL (0.55-1.30); GLOMERULAR FILTRATION RATE 42.7 (>51); MB/CK RELATIVE INDEX 0.69 (< OR =4); POTASSIUM SERUM 2.6 MMOL/L (3.5-5.1); THYROID STIMULATING HORMONE 12.52 uIU/ML (0.55-4.78); TOTAL PROTEIN 5.1 G/DL (5.7-8.2)
[2024-01-17] MEDS ORDERED: ISOVUE-370 76% 100ML VIAL As Ordered ONE (07:37)
[2024-01-17] MEDS: NOREPINEPHRINE 4MG IN D5 250ML 4 MG in IV 1 EA IV SCH ×2 (08:08→15:06)
[2024-01-17] MEDS: NS 1,000 ML IV ONE (08:11)
[2024-01-17] MEDS: KCL 10MEQ/100ML SWI (KRUN) 10 MEQ in IV 1 EA IV ONE ×2 (08:11→09:06)
[2024-01-17] MEDS: LIDOCAINE 2% 5ML JELLY UROJET TOP ONE (08:15)
[2024-01-17 08:27] LABS: ETHYL ALCOHOL (ETHANOL) 0.005 % (0.000-0.010)
[2024-01-17 08:30] LABS: MAGNESIUM LEVEL 0.7 MG/DL (1.8-2.4)
[2024-01-17] MEDS: MAG SULF 1GM/100ML (MAG RUN) 1 GM in IV 1 EA IV ONE ×2 (08:43→10:11)
[2024-01-17 08:53] LABS: VENOUS BASE EXCESS -7.3 (-2.0-2.0); VENOUS HCO3 17.5 MMOL/L (23.0-27.0); VENOUS O2 SATURATION 98.2 % (60.0-80.0); VENOUS PARTIAL PRESSURE CO2 32.7 mmHg (38.0-50.0); VENOUS PARTIAL PRESSURE O2 145.3 mmHg (30.0-50.0); VENOUS PH 7.346 UNITS (7.330-7.430); VENOUS STANDARD HCO3 18.5 MMOL/L; VENOUS TOTAL CO2 18.5 MMOL/L (24.0-28.0)
[2024-01-17 09:10] LABS: AMPHETAMINES LEVEL URINE NEGATIVE (NEGATIVE); BARBITURATES URINE NEGATIVE (NEGATIVE)
[2024-01-17 09:11] LABS: BENZODIAZEPINES URINE NEGATIVE (NEGATIVE); CANNABINOIDS URINE NEGATIVE (NEGATIVE); COCAINE METABOLITE URINE NEGATIVE (NEGATIVE); METHADONE URINE NEGATIVE (NEGATIVE); OPIATES URINE NEGATIVE (NEGATIVE); PHENCYCLIDINE URINE NEGATIVE (NEGATIVE)
[2024-01-17] MEDS: FOLIC ACID 1MG TAB PO SCH (09:17)
[2024-01-17] MEDS: CALCIUM GLUCONATE 1,000 MG in D5W MINI-BAG PLUS 100 ML IV ONE (09:17)
[2024-01-17] MEDS: NS 1,000 ML IV SCH (09:18)
[2024-01-17 09:33] LABS: INR 1.58; PROTHROMBIN TIME 18.3 SECONDS (12.5-14.5)
[2024-01-17] MEDS: POTASSIUM CHLORIDE 10% LIQ 20MEQ/15ML UDC PO ONE (09:37)
[2024-01-17] MEDS: MULTIVITAMINS/MINERALS THERAP 1 TAB PO SCH (09:37)
[2024-01-17] MEDS: THIAMINE 100 MG TAB PO SCH (09:37)
[2024-01-17] MEDS: LR 1,000 ML IV SCH ×2 (09:53→15:25)
[2024-01-17 10:16] LABS: FOLATE 6.07 NG/ML (>5.4); VITAMIN B12 LEVEL > 2000 PG/ML (211-911)
[2024-01-17] MEDS: PIPERACILLIN/TAZOBACTAM SOD 4.5 GM in D5W MINI-BAG PLUS 50 ML IV ONE (10:57)
[2024-01-17] MEDS ORDERED: SYNT150T PO (11:16)
[2024-01-17] MEDS ORDERED: SERT-141 PO (11:16)
[2024-01-17] MEDS ORDERED: OMEG350C PO (11:16)
[2024-01-17] MEDS ORDERED: HOME MED LIST COMPLETE! XX SCH (11:25)
[2024-01-17] MEDS: ENOXAPARIN 40MG/0.4ML SYRINGE (J1650 PER 10MG) SC SCH (14:10)
[2024-01-17 17:45] LABS: ALBUMIN 1.8 G/DL (3.2-5.2); BILIRUBIN,TOTAL 1.4 MG/DL (0.3-1.2); CALCIUM LEVEL 4.5 MG/DL (8.5-10.1); CREATININE FOR GFR 1.2 MG/DL (0.55-1.30); GLOMERULAR FILTRATION RATE 59.5 (>51); MAGNESIUM LEVEL 1.2 MG/DL (1.8-2.4); PHOSPHORUS LEVEL 2.4 MG/DL (2.5-4.9); POTASSIUM SERUM 3.3 MMOL/L (3.5-5.1); TOTAL PROTEIN 4.5 G/DL (5.7-8.2)
[2024-01-17] MEDS: MAG SULF 1GM/100ML (MAG RUN) 1 GM in IV 1 EA IV SCH (19:37)
[2024-01-17] MEDS: CALCIUM GLUCONATE 1,000 MG in D5W MINI-BAG PLUS 100 ML IV SCH (19:37)
[2024-01-17] MEDS: KCL 20MEQ IN 100ML SWI (KRUN) 20 MEQ in IV 1 EA IV SCH (22:04)
[2024-01-17] MEDS: SODIUM PHOSPHATE INJ 30 MMOL in D5W 500 ML IV ONE (22:04)
[2024-01-17] MEDS: metroNIDAZOLE 500 MG in IV 1 EA IV SCH (23:20)
[2024-01-18] VITALS (59 sets, daily range): BP systolic 85–115; BP diastolic 53–81; TEMP 97.7–98.4; O2SAT 88–100
[2024-01-18] MEDS ORDERED: VANCOMYCIN ORAL SOL 250MG/5ML ORAL SYRINGE PO SCH
[2024-01-18] MEDS: VANCOMYCIN ORAL SOL 250MG/5ML ORAL SYRINGE PO SCH (00:49)
[2024-01-18] MEDS ORDERED: LORazepam 2 MG TAB PO PRN (04:35)
[2024-01-18 05:16] LABS: FREE T4 0.75 NG/DL (0.89-1.76)
[2024-01-18 05:29] LABS: ALBUMIN 1.7 G/DL (3.2-5.2); ALKALINE PHOSPHATASE 238 U/L (46-116); ALT/SGPT 92 U/L (7.0-40); AST/SGOT 170 U/L (<34); BLOOD UREA NITROGEN 10 MG/DL (9-23); CALCIUM LEVEL 5.3 MG/DL (8.5-10.1); CARBON DIOXIDE LEVEL 16 MMOL/L (20-31); CHLORIDE LEVEL 102 MMOL/L (98-107); CREATININE FOR GFR 1.18 MG/DL (0.55-1.30); GLOMERULAR FILTRATION RATE > 60.0 (>51); GLUCOSE, FASTING 188 MG/DL (60-100); MAGNESIUM LEVEL 1.6 MG/DL (1.8-2.4); PHOSPHORUS LEVEL 4.6 MG/DL (2.5-4.9); POTASSIUM SERUM 2.9 MMOL/L (3.5-5.1); SODIUM LEVEL 133 MMOL/L (136-145); TOTAL PROTEIN 4.6 G/DL (5.7-8.2)
[2024-01-18] MEDS: THIAMINE 100 MG TAB PO SCH (06:13)
[2024-01-18] MEDS: MAG SULF 1GM/100ML (MAG RUN) 1 GM in IV 1 EA IV SCH (06:13)
[2024-01-18] MEDS: LEVOTHYROXINE 150MCG TABLET (0.15MG) PO SCH (06:14)
[2024-01-18] MEDS: KCL 20MEQ IN 100ML SWI (KRUN) 20 MEQ in IV 1 EA IV SCH (07:30)
[2024-01-18] MEDS: SERTRALINE HCL 50 MG TAB PO SCH (09:22)
[2024-01-18] MEDS: FOLIC ACID 1MG TAB PO SCH (09:22)
[2024-01-18] MEDS: MULTIVITAMINS/MINERALS THERAP 1 TAB PO SCH (09:22)
[2024-01-18] MEDS: LR 1,000 ML IV SCH (09:23)
[2024-01-18] MEDS: MULTIVITAMIN -ADULT INJECTION 10 ML, THIAMINE INJection 100 MG, FOLIC ACID 1 MG in NS 1... IV ONE (11:41)
[2024-01-18] MEDS: CALCIUM GLUCONATE 1,000 MG in D5W MINI-BAG PLUS 100 ML IV ONE (11:44)
[2024-01-18 12:29] LABS: BLOOD UREA NITROGEN 9 MG/DL (9-23); CALCIUM LEVEL 5.3 MG/DL (8.5-10.1); CARBON DIOXIDE LEVEL 17 MMOL/L (20-31); CHLORIDE LEVEL 106 MMOL/L (98-107); CREATININE FOR GFR 1.15 MG/DL (0.55-1.30); GLOMERULAR FILTRATION RATE > 60.0 (>51); GLUCOSE, FASTING 123 MG/DL (60-100); MAGNESIUM LEVEL 2.2 MG/DL (1.8-2.4); POTASSIUM SERUM 3.4 MMOL/L (3.5-5.1); SODIUM LEVEL 134 MMOL/L (136-145)
[2024-01-18] MEDS: KCL 20MEQ IN 100ML SWI (KRUN) 20 MEQ in IV 1 EA IV ONE (20:39)
[2024-01-18] MEDS: ACETAMINOPHEN TAB 650MG DOSE (2X325MG) PO ONE (23:28)
[2024-01-19] VITALS (12 sets, daily range): BP systolic 86–111; BP diastolic 54–63; TEMP 97–98.6; O2SAT 96–99
[2024-01-19 04:35] LABS: HEMOGLOBIN 7.3 g/dl (12.0-15.5); MEAN CORPUSCULAR HEMOGLOBIN 37.1 pg (27.0-33.0); MEAN CORPUSCULAR HGB CONC 35.3 g/dl (32.0-36.5); MEAN CORPUSCULAR VOLUME 105.1 fl (80.0-96.0); PLATELET COUNT, AUTOMATED 120 10^3/uL (150-450); RED BLOOD COUNT 1.97 10^6/uL (4.00-5.40); WHITE BLOOD COUNT 9.1 10^3/uL (4.0-10.0)
[2024-01-19 04:37] LABS: HEMATOCRIT 20.7 % (36.0-47.0)
[2024-01-19] MEDS: CALCIUM GLUCONATE 1,000 MG in D5W MINI-BAG PLUS 100 ML IV ONE ×2 (04:41→17:23)
[2024-01-19 05:06] LABS: ALBUMIN 1.8 G/DL (3.2-5.2); ALKALINE PHOSPHATASE 231 U/L (46-116); ALT/SGPT 87 U/L (7.0-40); AST/SGOT 144 U/L (<34); BLOOD UREA NITROGEN 6 MG/DL (9-23); CALCIUM LEVEL 5.5 MG/DL (8.5-10.1); CARBON DIOXIDE LEVEL 17 MMOL/L (20-31); CHLORIDE LEVEL 112 MMOL/L (98-107); CREATININE FOR GFR 1.08 MG/DL (0.55-1.30); GLOMERULAR FILTRATION RATE > 60.0 (>51); GLUCOSE, FASTING 113 MG/DL (60-100); MAGNESIUM LEVEL 1.7 MG/DL (1.8-2.4); PHOSPHORUS LEVEL 2.8 MG/DL (2.5-4.9); POTASSIUM SERUM 3.7 MMOL/L (3.5-5.1); SODIUM LEVEL 139 MMOL/L (136-145); TOTAL PROTEIN 4.5 G/DL (5.7-8.2)
[2024-01-19] MEDS: MAG SULF 1GM/100ML (MAG RUN) 1 GM in IV 1 EA IV ONE (06:17)
[2024-01-19] MEDS: NS 1,000 ML IV SCH (09:26)
[2024-01-19 14:51] LABS: IONIZED CALCIUM 3.5 MG/DL (4.5-5.3)
[2024-01-19 14:57] LABS: HEMATOCRIT 22.4 % (36.0-47.0); HEMOGLOBIN 7.7 g/dl (12.0-15.5); MEAN CORPUSCULAR HEMOGLOBIN 36.3 pg (27.0-33.0); MEAN CORPUSCULAR HGB CONC 34.4 g/dl (32.0-36.5); MEAN CORPUSCULAR VOLUME 105.7 fl (80.0-96.0); PLATELET COUNT, AUTOMATED 123 10^3/uL (150-450); RED BLOOD COUNT 2.12 10^6/uL (4.00-5.40); WHITE BLOOD COUNT 8.9 10^3/uL (4.0-10.0)
[2024-01-19 15:27] LABS: BLOOD UREA NITROGEN 6 MG/DL (9-23); CALCIUM LEVEL 5.8 MG/DL (8.5-10.1); CARBON DIOXIDE LEVEL 17 MMOL/L (20-31); CHLORIDE LEVEL 109 MMOL/L (98-107); CREATININE FOR GFR 1.12 MG/DL (0.55-1.30); GLOMERULAR FILTRATION RATE > 60.0 (>51); GLUCOSE, FASTING 118 MG/DL (60-100); MAGNESIUM LEVEL 1.9 MG/DL (1.8-2.4); POTASSIUM SERUM 3.4 MMOL/L (3.5-5.1); SODIUM LEVEL 138 MMOL/L (136-145)
[2024-01-19] MEDS: LACTOBACILLUS ACIDOPHILUS CAP (BACID) PO SCH (17:24)
[2024-01-19] MEDS: POTASSIUM CHLORIDE 10MEQ SR TABLET PO ONE (17:24)
[2024-01-19 23:13] LABS: IONIZED CALCIUM 3.7 MG/DL (4.5-5.3)
[2024-01-19 23:38] LABS: MAGNESIUM LEVEL 1.7 MG/DL (1.8-2.4); POTASSIUM SERUM 3.6 MMOL/L (3.5-5.1)
[2024-01-20] VITALS (10 sets, daily range): BP systolic 96–121; BP diastolic 52–80; TEMP 97.2–98.1; O2SAT 95–99
[2024-01-20 03:53] LABS: MEAN CORPUSCULAR HEMOGLOBIN 36.5 pg (27.0-33.0); MEAN CORPUSCULAR HGB CONC 34.3 g/dl (32.0-36.5); MEAN CORPUSCULAR VOLUME 106.3 fl (80.0-96.0); PLATELET COUNT, AUTOMATED 127 10^3/uL (150-450); RED BLOOD COUNT 1.89 10^6/uL (4.00-5.40); WHITE BLOOD COUNT 8.6 10^3/uL (4.0-10.0)
[2024-01-20 04:09] LABS: HEMATOCRIT 20.1 % (36.0-47.0); HEMOGLOBIN 6.9 g/dl (12.0-15.5)
[2024-01-20 04:42] LABS: ALBUMIN 1.8 G/DL (3.2-5.2); ALKALINE PHOSPHATASE 221 U/L (46-116); ALT/SGPT 77 U/L (7.0-40); AST/SGOT 119 U/L (<34); BLOOD UREA NITROGEN < 5 MG/DL (9-23); CALCIUM LEVEL 5.6 MG/DL (8.5-10.1); CARBON DIOXIDE LEVEL 16 MMOL/L (20-31); CHLORIDE LEVEL 112 MMOL/L (98-107); CREATININE FOR GFR 1.07 MG/DL (0.55-1.30); GLOMERULAR FILTRATION RATE > 60.0 (>51); GLUCOSE, FASTING 107 MG/DL (60-100); MAGNESIUM LEVEL 1.7 MG/DL (1.8-2.4); PHOSPHORUS LEVEL 2.6 MG/DL (2.5-4.9); POTASSIUM SERUM 3.5 MMOL/L (3.5-5.1); SODIUM LEVEL 138 MMOL/L (136-145); TOTAL PROTEIN 4.5 G/DL (5.7-8.2)
[2024-01-20] MEDS ORDERED: NS 1,000 ML IV SCH (05:00)
[2024-01-20] MEDS: NS 1,000 ML IV SCH (05:37)
[2024-01-20] MEDS: MAG SULF 1GM/100ML (MAG RUN) 1 GM in IV 1 EA IV ONE (07:33)
[2024-01-20] MEDS: CALCITRIOL 0.25 MCG CAP (S0169) PO SCH (10:48)
[2024-01-20] MEDS: VANCOMYCIN 125MG CAPSULE PO SCH (11:47)
[2024-01-20 12:34] LABS: MEAN CORPUSCULAR HEMOGLOBIN 35.8 pg (27.0-33.0); MEAN CORPUSCULAR HGB CONC 34.7 g/dl (32.0-36.5); MEAN CORPUSCULAR VOLUME 103.2 fl (80.0-96.0); PLATELET COUNT, AUTOMATED 115 10^3/uL (150-450); RED BLOOD COUNT 2.79 10^6/uL (4.00-5.40); WHITE BLOOD COUNT 9.5 10^3/uL (4.0-10.0)
[2024-01-20 12:40] LABS: HEMATOCRIT 28.8 % (36.0-47.0)
[2024-01-20 13:07] LABS: BLOOD UREA NITROGEN < 5 MG/DL (9-23); CARBON DIOXIDE LEVEL 16 MMOL/L (20-31); CHLORIDE LEVEL 114 MMOL/L (98-107); CREATININE FOR GFR 1.05 MG/DL (0.55-1.30); GLOMERULAR FILTRATION RATE > 60.0 (>51); GLUCOSE, FASTING 100 MG/DL (60-100); MAGNESIUM LEVEL 1.9 MG/DL (1.8-2.4); POTASSIUM SERUM 3.5 MMOL/L (3.5-5.1); SODIUM LEVEL 140 MMOL/L (136-145)
[2024-01-20] MEDS: SODIUM BICARBONATE 75 MEQ, POTASSIUM CHLORIDE INJ 10 MEQ in NS 0.45% 1,000 ML IV SCH (14:19)
[2024-01-20] MEDS: CALCIUM CARBONATE 500 MG CHEW U/D PO SCH (16:32)
[2024-01-21 00:22] VITALS: BP 117/73; TEMP 98.2; O2SAT 98
[2024-01-21 04:44] VITALS: BP 105/73; TEMP 98.3; O2SAT 98
[2024-01-21 05:32] LABS: HEMATOCRIT 27.3 % (36.0-47.0); HEMOGLOBIN 9.4 g/dl (12.0-15.5); MEAN CORPUSCULAR HEMOGLOBIN 34.9 pg (27.0-33.0); MEAN CORPUSCULAR HGB CONC 34.4 g/dl (32.0-36.5); MEAN CORPUSCULAR VOLUME 101.5 fl (80.0-96.0); PLATELET COUNT, AUTOMATED 122 10^3/uL (150-450); RED BLOOD COUNT 2.69 10^6/uL (4.00-5.40); WHITE BLOOD COUNT 10.1 10^3/uL (4.0-10.0)
[2024-01-21 06:06] LABS: TOTAL 25(OH) VITAMIN D 12.2 NG/ML (20.0-100.0)
[2024-01-21 08:00] VITALS: BP 98/67; TEMP 97.7; O2SAT 98
[2024-01-21 08:07] LABS: ALBUMIN 1.8 G/DL (3.2-5.2); ALKALINE PHOSPHATASE 253 U/L (46-116); ALT/SGPT 76 U/L (7.0-40); AST/SGOT 109 U/L (<34); BILIRUBIN,TOTAL 1.6 MG/DL (0.3-1.2); BLOOD UREA NITROGEN < 5 MG/DL (9-23); CALCIUM LEVEL 5.8 MG/DL (8.5-10.1); CARBON DIOXIDE LEVEL 16 MMOL/L (20-31); CHLORIDE LEVEL 114 MMOL/L (98-107); CREATININE FOR GFR 0.94 MG/DL (0.55-1.30); GLOMERULAR FILTRATION RATE > 60.0 (>51); GLUCOSE, FASTING 85 MG/DL (60-100); MAGNESIUM LEVEL 1.5 MG/DL (1.8-2.4); POTASSIUM SERUM 3.3 MMOL/L (3.5-5.1); PTH INTACT 507.2 PG/ML (18.5-88.0); SODIUM LEVEL 142 MMOL/L (136-145); TOTAL PROTEIN 4.7 G/DL (5.7-8.2)
[2024-01-21] MEDS: POTASSIUM CHLORIDE 10MEQ SR TABLET PO SCH (09:54)
[2024-01-21] MEDS: MAGNESIUM OXIDE 400MG TAB (MAG-OX) PO SCH (09:55)
[2024-01-21] MEDS: MAG SULF 1GM/100ML (MAG RUN) 1 GM in IV 1 EA IV SCH (09:56)
[2024-01-21] MEDS: CALCITRIOL 0.25 MCG CAP (S0169) PO SCH (10:07)
[2024-01-21] MEDS: VITAMIN D 1,000 INTERNATIONAL UNITS TABLET PO SCH (10:07)
[2024-01-21] MEDS: KCL 10MEQ/100ML SWI (KRUN) 10 MEQ in IV 1 EA IV SCH (11:19)
[2024-01-21 12:00] VITALS: BP 104/71; TEMP 97.5; O2SAT 97
[2024-01-21] MEDS: KCL IV SCH (12:29)
[2024-01-21] MEDS: MAGNESIUM SULFATE IV SCH (12:29)
[2024-01-21] MEDS: SODIUM BICARBONATE IV SCH (12:29)
[2024-01-21] MEDS: [UNRECOGNIZED DRUG - OTHER] IV SCH (12:29)
[2024-01-21 16:00] VITALS: BP 104/64; TEMP 97.4; O2SAT 98
[2024-01-21 19:56] VITALS: BP 102/66; TEMP 98.6; O2SAT 98
[2024-01-22 00:44] VITALS: BP 104/62; TEMP 97.7; O2SAT 97
[2024-01-22 03:55] VITALS: BP 106/72; TEMP 97.5; O2SAT 98
[2024-01-22 07:03] LABS: IONIZED CALCIUM 3.8 MG/DL (4.5-5.3)
[2024-01-22 07:14] LABS: HEMATOCRIT 25.5 % (36.0-47.0); HEMOGLOBIN 8.8 g/dl (12.0-15.5); MEAN CORPUSCULAR HEMOGLOBIN 34.9 pg (27.0-33.0); MEAN CORPUSCULAR HGB CONC 34.5 g/dl (32.0-36.5); MEAN CORPUSCULAR VOLUME 101.2 fl (80.0-96.0); PLATELET COUNT, AUTOMATED 110 10^3/uL (150-450); RED BLOOD COUNT 2.52 10^6/uL (4.00-5.40); WHITE BLOOD COUNT 8.8 10^3/uL (4.0-10.0)
[2024-01-22 08:08] LABS: ATYPICAL LYMPH 1 % (0-5); BASOPHILS 1 % (0-1); LYMPHOCYTES 13 % (16-44); MONOCYTES 11 % (0-5); NEUTROPHILS 71 % (28-66)
[2024-01-22 08:09] LABS: PLATELET ESTIMATE DECREASED (NORMAL)
[2024-01-22 08:10] LABS: HYPOCHROMASIA 2+; POLYCHROMASIA 1+
[2024-01-22 08:20] VITALS: BP 102/64; TEMP 98.1; O2SAT 98
[2024-01-22 08:37] LABS: BLOOD UREA NITROGEN < 5 MG/DL (9-23); CALCIUM LEVEL 6.2 MG/DL (8.5-10.1); CARBON DIOXIDE LEVEL 20 MMOL/L (20-31); CHLORIDE LEVEL 111 MMOL/L (98-107); CREATININE FOR GFR 0.89 MG/DL (0.55-1.30); GLOMERULAR FILTRATION RATE > 60.0 (>51); GLUCOSE, FASTING 75 MG/DL (60-100); MAGNESIUM LEVEL 2.2 MG/DL (1.8-2.4); POTASSIUM SERUM 3.6 MMOL/L (3.5-5.1); SODIUM LEVEL 142 MMOL/L (136-145)
[2024-01-22 16:38] VITALS: BP 106/58; TEMP 98.1; O2SAT 97
[2024-01-22 20:12] VITALS: BP 104/71; TEMP 98.2; O2SAT 98
[2024-01-23 05:54] LABS: BASO % 0.2 % (0.0-1.0); EOS % 0.5 % (0.0-3.0); HEMATOCRIT 26.8 % (36.0-47.0); HEMOGLOBIN 9.2 g/dl (12.0-15.5); LYMPH # 0.9 10^3/uL (1.5-5.0); LYMPH % 10.7 % (24.0-44.0); MEAN CORPUSCULAR HEMOGLOBIN 34.5 pg (27.0-33.0); MEAN CORPUSCULAR HGB CONC 34.3 g/dl (32.0-36.5); MEAN CORPUSCULAR VOLUME 100.4 fl (80.0-96.0); MONO # 1.3 10^3/uL (0.0-0.8); MONO % 14.6 % (2.0-8.0); NEUTROPHILS # 6.4 10^3/uL (1.5-8.5); NEUTROPHILS % 72.9 % (36.0-66.0); PLATELET COUNT, AUTOMATED 143 10^3/uL (150-450); RED BLOOD COUNT 2.67 10^6/uL (4.00-5.40); WHITE BLOOD COUNT 8.8 10^3/uL (4.0-10.0)
[2024-01-23 06:00] VITALS: BP 109/75; TEMP 97.9; O2SAT 96
[2024-01-23 06:10] LABS: BLOOD UREA NITROGEN < 5 MG/DL (9-23); CALCIUM LEVEL 6.9 MG/DL (8.5-10.1); CARBON DIOXIDE LEVEL 23 MMOL/L (20-31); CHLORIDE LEVEL 112 MMOL/L (98-107); CREATININE FOR GFR 0.81 MG/DL (0.55-1.30); GLOMERULAR FILTRATION RATE > 60.0 (>51); GLUCOSE, FASTING 82 MG/DL (60-100); MAGNESIUM LEVEL 2.2 MG/DL (1.8-2.4); SODIUM LEVEL 146 MMOL/L (136-145)
[2024-01-23] MEDS: HEPARIN SOD (PORCINE) 5000UNITS/ML 1ML VIAL/SYRINGE SC SCH (08:24)
[2024-01-23 14:00] VITALS: BP 113/80; TEMP 97.9; O2SAT 97
[2024-01-23] MEDS: RAMELTEON 8 MG TAB (ROZEREM) PO SCH (20:31)
[2024-01-23 21:00] VITALS: BP 130/87; TEMP 97.9; O2SAT 97
[2024-01-24 06:00] VITALS: BP 128/87; TEMP 97.9; O2SAT 97
[2024-01-24 06:28] LABS: BASO # 0.1 10^3/uL (0.0-0.2); BASO % 0.6 % (0.0-1.0); EOS # 0.1 10^3/uL (0.0-0.5); EOS % 0.8 % (0.0-3.0); HEMATOCRIT 27.6 % (36.0-47.0); HEMOGLOBIN 9.4 g/dl (12.0-15.5); LYMPH # 1.2 10^3/uL (1.5-5.0); LYMPH % 14.9 % (24.0-44.0); MEAN CORPUSCULAR HEMOGLOBIN 34.8 pg (27.0-33.0); MEAN CORPUSCULAR HGB CONC 34.1 g/dl (32.0-36.5); MEAN CORPUSCULAR VOLUME 102.2 fl (80.0-96.0); MONO # 1.1 10^3/uL (0.0-0.8); MONO % 14.5 % (2.0-8.0); NEUTROPHILS # 5.4 10^3/uL (1.5-8.5); NEUTROPHILS % 68.2 % (36.0-66.0); PLATELET COUNT, AUTOMATED 147 10^3/uL (150-450); WHITE BLOOD COUNT 7.9 10^3/uL (4.0-10.0)
[2024-01-24 06:56] LABS: BLOOD UREA NITROGEN 6 MG/DL (9-23); CALCIUM LEVEL 8.2 MG/DL (8.5-10.1); CARBON DIOXIDE LEVEL 26 MMOL/L (20-31); CHLORIDE LEVEL 111 MMOL/L (98-107); CREATININE FOR GFR 0.89 MG/DL (0.55-1.30); GLOMERULAR FILTRATION RATE > 60.0 (>51); GLUCOSE, FASTING 87 MG/DL (60-100); MAGNESIUM LEVEL 1.9 MG/DL (1.8-2.4); SODIUM LEVEL 142 MMOL/L (136-145)
[2024-01-24 14:00] VITALS: BP 120/84; TEMP 97.9; O2SAT 99
[2024-01-24 20:24] VITALS: BP 119/84; TEMP 97.9; O2SAT 97
[2024-01-25 06:00] VITALS: BP 122/88; TEMP 97.7; O2SAT 96
[2024-01-25 06:05] VITALS: BP 122/88; TEMP 97.7; O2SAT 96
[2024-01-25 06:12] LABS: BASO # 0.1 10^3/uL (0.0-0.2); BASO % 0.7 % (0.0-1.0); EOS # 0.1 10^3/uL (0.0-0.5); EOS % 0.9 % (0.0-3.0); HEMATOCRIT 29.1 % (36.0-47.0); HEMOGLOBIN 9.7 g/dl (12.0-15.5); LYMPH # 1.3 10^3/uL (1.5-5.0); LYMPH % 16.3 % (24.0-44.0); MEAN CORPUSCULAR HEMOGLOBIN 34.8 pg (27.0-33.0); MEAN CORPUSCULAR HGB CONC 33.3 g/dl (32.0-36.5); MEAN CORPUSCULAR VOLUME 104.3 fl (80.0-96.0); MONO % 11.9 % (2.0-8.0); NEUTROPHILS # 5.6 10^3/uL (1.5-8.5); NEUTROPHILS % 69.1 % (36.0-66.0); PLATELET COUNT, AUTOMATED 170 10^3/uL (150-450); RED BLOOD COUNT 2.79 10^6/uL (4.00-5.40); WHITE BLOOD COUNT 8.1 10^3/uL (4.0-10.0)
[2024-01-25 06:31] LABS: BLOOD UREA NITROGEN 8 MG/DL (9-23); CALCIUM LEVEL 8.3 MG/DL (8.5-10.1); CARBON DIOXIDE LEVEL 25 MMOL/L (20-31); CHLORIDE LEVEL 112 MMOL/L (98-107); GLOMERULAR FILTRATION RATE > 60.0 (>51); GLUCOSE, FASTING 85 MG/DL (60-100); MAGNESIUM LEVEL 1.6 MG/DL (1.8-2.4); POTASSIUM SERUM 4.4 MMOL/L (3.5-5.1); SODIUM LEVEL 143 MMOL/L (136-145)
[2024-01-25] MEDS: MAG SULF 1GM/100ML (MAG RUN) 1 GM in IV 1 EA IV ONE (08:17)
[2024-01-25 14:00] VITALS: BP 120/88; TEMP 98.7; O2SAT 98
[2024-01-25 20:40] VITALS: BP 118/86; TEMP 98.1; O2SAT 94
[2024-01-26 06:00] VITALS: BP 122/82; TEMP 98.4; O2SAT 95
[2024-01-26 06:45] LABS: BASO # 0.1 10^3/uL (0.0-0.2); BASO % 0.6 % (0.0-1.0); EOS % 0.5 % (0.0-3.0); HEMATOCRIT 29.1 % (36.0-47.0); HEMOGLOBIN 9.6 g/dl (12.0-15.5); LYMPH # 1.3 10^3/uL (1.5-5.0); LYMPH % 15.3 % (24.0-44.0); MEAN CORPUSCULAR HEMOGLOBIN 34.7 pg (27.0-33.0); MEAN CORPUSCULAR VOLUME 105.1 fl (80.0-96.0); MONO # 0.9 10^3/uL (0.0-0.8); MONO % 10.9 % (2.0-8.0); NEUTROPHILS # 6.1 10^3/uL (1.5-8.5); NEUTROPHILS % 72.1 % (36.0-66.0); PLATELET COUNT, AUTOMATED 184 10^3/uL (150-450); RED BLOOD COUNT 2.77 10^6/uL (4.00-5.40); WHITE BLOOD COUNT 8.4 10^3/uL (4.0-10.0)
[2024-01-26 07:18] LABS: BLOOD UREA NITROGEN 11 MG/DL (9-23); CALCIUM LEVEL 7.9 MG/DL (8.5-10.1); CARBON DIOXIDE LEVEL 23 MMOL/L (20-31); CHLORIDE LEVEL 111 MMOL/L (98-107); CREATININE FOR GFR 0.92 MG/DL (0.55-1.30); GLOMERULAR FILTRATION RATE > 60.0 (>51); GLUCOSE, FASTING 75 MG/DL (60-100); MAGNESIUM LEVEL 1.8 MG/DL (1.8-2.4); POTASSIUM SERUM 4.6 MMOL/L (3.5-5.1); SODIUM LEVEL 140 MMOL/L (136-145)
[2024-01-26 14:00] VITALS: BP 122/82; TEMP 98.1; O2SAT 95
[2024-01-26] MEDS: CALCIUM CARBONATE 500 MG CHEW U/D PO SCH (17:13)
[2024-01-26 21:54] VITALS: BP 119/81; TEMP 98.6; O2SAT 96
[2024-01-27 06:07] VITALS: BP 129/93; TEMP 98.4
[2024-01-27 06:20] LABS: BASO # 0.1 10^3/uL (0.0-0.2); BASO % 0.7 % (0.0-1.0); EOS % 0.5 % (0.0-3.0); HEMATOCRIT 28.1 % (36.0-47.0); HEMOGLOBIN 9.4 g/dl (12.0-15.5); LYMPH # 1.2 10^3/uL (1.5-5.0); LYMPH % 13.6 % (24.0-44.0); MEAN CORPUSCULAR HEMOGLOBIN 35.3 pg (27.0-33.0); MEAN CORPUSCULAR HGB CONC 33.5 g/dl (32.0-36.5); MEAN CORPUSCULAR VOLUME 105.6 fl (80.0-96.0); MONO # 0.9 10^3/uL (0.0-0.8); MONO % 10.2 % (2.0-8.0); NEUTROPHILS # 6.4 10^3/uL (1.5-8.5); NEUTROPHILS % 74.3 % (36.0-66.0); PLATELET COUNT, AUTOMATED 180 10^3/uL (150-450); RED BLOOD COUNT 2.66 10^6/uL (4.00-5.40); WHITE BLOOD COUNT 8.7 10^3/uL (4.0-10.0)
[2024-01-27 06:43] LABS: BLOOD UREA NITROGEN 13 MG/DL (9-23); CALCIUM LEVEL 8.1 MG/DL (8.5-10.1); CARBON DIOXIDE LEVEL 20 MMOL/L (20-31); CHLORIDE LEVEL 112 MMOL/L (98-107); CREATININE FOR GFR 0.93 MG/DL (0.55-1.30); GLOMERULAR FILTRATION RATE > 60.0 (>51); GLUCOSE, FASTING 80 MG/DL (60-100); MAGNESIUM LEVEL 1.6 MG/DL (1.8-2.4); POTASSIUM SERUM 4.9 MMOL/L (3.5-5.1); SODIUM LEVEL 141 MMOL/L (136-145)
[2024-01-27] MEDS: GOLYTELY SOLN 4000 ML BTL PO ONE (11:54)
[2024-01-27 14:00] VITALS: BP 110/80; TEMP 98.1; O2SAT 99
[2024-01-27] MEDS: MAG SULF 1GM/100ML (MAG RUN) 1 GM in IV 1 EA IV SCH (18:05)
[2024-01-27 21:00] VITALS: BP 111/78; TEMP 98.1; O2SAT 97
[2024-01-28] VITALS (9 sets, daily range): BP systolic 96–116; BP diastolic 69–82; TEMP 97.5–98.4; O2SAT 95–100
[2024-01-28 06:07] LABS: HEMATOCRIT 29.3 % (36.0-47.0); HEMOGLOBIN 9.5 g/dl (12.0-15.5); MEAN CORPUSCULAR HEMOGLOBIN 35.2 pg (27.0-33.0); MEAN CORPUSCULAR HGB CONC 32.4 g/dl (32.0-36.5); MEAN CORPUSCULAR VOLUME 108.5 fl (80.0-96.0); PLATELET COUNT, AUTOMATED 195 10^3/uL (150-450); WHITE BLOOD COUNT 8.7 10^3/uL (4.0-10.0)
[2024-01-28 06:52] LABS: BLOOD UREA NITROGEN 10 MG/DL (9-23); CALCIUM LEVEL 7.7 MG/DL (8.5-10.1); CARBON DIOXIDE LEVEL 22 MMOL/L (20-31); CHLORIDE LEVEL 111 MMOL/L (98-107); CREATININE FOR GFR 0.88 MG/DL (0.55-1.30); GLOMERULAR FILTRATION RATE > 60.0 (>51); GLUCOSE, FASTING 104 MG/DL (60-100); POTASSIUM SERUM 3.6 MMOL/L (3.5-5.1); SODIUM LEVEL 142 MMOL/L (136-145)
[2024-01-28 06:59] LABS: BASOPHILS 1 % (0-1); LYMPHOCYTES 15 % (16-44); MONOCYTES 7 % (0-5); NEUTROPHILS 77 % (28-66)
[2024-01-28 07:00] LABS: ANISOCYTOSIS 1+; PLATELET ESTIMATE NORMAL (NORMAL)
[2024-01-28] MEDS ORDERED: propofoL 200 MG/20 ML VIAL As Ordered ONE (15:06)
[2024-01-28] MEDS ORDERED: LIDOCAINE 2% 100MG/5ML SDV (FOR ANES.) As Ordered ONE (15:06)
[2024-01-28] MEDS ORDERED: PHENYLephrine 500MCG 5ML (100MCG/ML) SYRINGE As Ordered ONE (15:09)
[2024-01-28] MEDS: FECAL MICROBIOTA TRANSPLANT PREPARATION 35ML BAG XX ONE (16:13)
[2024-01-29 01:00] VITALS: BP 119/82; TEMP 97.9; O2SAT 95
[2024-01-29 05:16] VITALS: BP 133/92; O2SAT 98
[2024-01-29 06:31] LABS: BASO # 0.1 10^3/uL (0.0-0.2); BASO % 1.2 % (0.0-1.0); EOS # 0.1 10^3/uL (0.0-0.5); EOS % 0.6 % (0.0-3.0); HEMATOCRIT 30.1 % (36.0-47.0); HEMOGLOBIN 9.7 g/dl (12.0-15.5); LYMPH % 12.2 % (24.0-44.0); MEAN CORPUSCULAR HEMOGLOBIN 34.9 pg (27.0-33.0); MEAN CORPUSCULAR HGB CONC 32.2 g/dl (32.0-36.5); MEAN CORPUSCULAR VOLUME 108.3 fl (80.0-96.0); MONO # 0.8 10^3/uL (0.0-0.8); MONO % 9.9 % (2.0-8.0); NEUTROPHILS # 6.4 10^3/uL (1.5-8.5); NEUTROPHILS % 75.5 % (36.0-66.0); PLATELET COUNT, AUTOMATED 245 10^3/uL (150-450); RED BLOOD COUNT 2.78 10^6/uL (4.00-5.40); WHITE BLOOD COUNT 8.5 10^3/uL (4.0-10.0)
[2024-01-29 06:58] LABS: ALBUMIN 2.2 G/DL (3.2-5.2); ALKALINE PHOSPHATASE 149 U/L (46-116); ALT/SGPT 34 U/L (7.0-40); AST/SGOT 77 U/L (<34); BILIRUBIN,DIRECT 0.5 MG/DL (<0.4); BILIRUBIN,TOTAL 0.8 MG/DL (0.3-1.2); BLOOD UREA NITROGEN 12 MG/DL (9-23); CALCIUM LEVEL 7.9 MG/DL (8.5-10.1); CARBON DIOXIDE LEVEL 20 MMOL/L (20-31); CHLORIDE LEVEL 113 MMOL/L (98-107); CREATININE FOR GFR 0.92 MG/DL (0.55-1.30); GLOMERULAR FILTRATION RATE > 60.0 (>51); GLUCOSE, FASTING 88 MG/DL (60-100); MAGNESIUM LEVEL 1.9 MG/DL (1.8-2.4); PHOSPHORUS LEVEL 4.1 MG/DL (2.5-4.9); POTASSIUM SERUM 5.1 MMOL/L (3.5-5.1); SODIUM LEVEL 140 MMOL/L (136-145); TOTAL PROTEIN 5.6 G/DL (5.7-8.2)
[2024-01-29 09:00] VITALS: BP 118/80; TEMP 98.1; O2SAT 99
[2024-01-29 13:00] VITALS: BP 118/79; TEMP 98.2; O2SAT 99
[2024-01-29] MEDS: GABAPENTIN 100 MG CAP PO ONE (16:22)
[2024-01-29] MEDS: atenoloL 25 MG TAB PO SCH (16:22)
[2024-01-29 17:00] VITALS: BP 115/76; TEMP 98.6; O2SAT 99
[2024-01-29 17:35] LABS: THYROID STIMULATING HORMONE 19.387 uIU/ML (0.55-4.78)
[2024-01-29 21:45] VITALS: BP 106/68; TEMP 98.4; O2SAT 97
[2024-01-30 02:31] VITALS: BP 107/70
[2024-01-30 06:02] VITALS: BP 93/64; TEMP 98.8; O2SAT 98
[2024-01-30 08:08] LABS: FREE T4 0.96 NG/DL (0.89-1.76)
[2024-01-30 09:49] VITALS: BP 109/68
[2024-01-30] MEDS ORDERED: VITAD1000T PO (11:48)
[2024-01-30] MEDS ORDERED: CALC1CAP31 PO (11:48)
[2024-01-30] MEDS ORDERED: ATEN25TA PO (11:48)
== END 2024-01-30 13:57 | disposition home or self-care (01) | DRG 371 ==
LOC: M ED 05:17 → M ED INP 09:01 → M ICU 10:28 → M PCU 01-19 12:49 → M MSPAV 01-22 20:12
PROVIDERS: ADMIT Internal Medicine Pulmonary Disease; ATTEND Internal Medicine
PROC: 02H633Z Insertion of Infusion Device into Right Atrium, Percutaneous Approach (ICD-10-PCS; principal; 2024-01-17)
PROC: 30233N1 Transfusion of Nonautologous Red Blood Cells into Peripheral Vein, Percutaneous Approach (ICD-10-PCS; 2024-01-20)
PROC: 3E0H8GC Introduction of Other Therapeutic Substance into Lower GI, Via Natural or Artificial Opening Endoscopic (ICD-10-PCS; 2024-01-28)
PROC: 0DJD8ZZ Inspection of Lower Intestinal Tract, Via Natural or Artificial Opening Endoscopic (ICD-10-PCS; 2024-01-28)
DX: A04.72 Enterocolitis due to Clostridium difficile, not specified as recurrent (principal); R57.1 Hypovolemic shock; E87.1 Hypo-osmolality and hyponatremia; E87.20 Acidosis, unspecified; N17.9 Acute kidney failure, unspecified; B17.9 Acute viral hepatitis, unspecified; I10 Essential (primary) hypertension; K64.8 Other hemorrhoids; E03.9 Hypothyroidism, unspecified; R74.8 Abnormal levels of other serum enzymes; E87.6 Hypokalemia; E83.42 Hypomagnesemia; E83.51 Hypocalcemia; D69.6 Thrombocytopenia, unspecified; K76.0 Fatty (change of) liver, not elsewhere classified; D63.8 Anemia in other chronic diseases classified elsewhere; E55.9 Vitamin D deficiency, unspecified; R16.0 Hepatomegaly, not elsewhere classified; K70.31 Alcoholic cirrhosis of liver with ascites; F17.210 Nicotine dependence, cigarettes, uncomplicated; Z79.890 Hormone replacement therapy; Z79.899 Other long term (current) drug therapy

== ENCOUNTER → 2024-04-16 | Outpatient (CLI) | payer OTHER ==
[~2024-04-16] MED LIST changes: +ATEN25TA PO; +CALC1CAP31 PO; +OMEG350C PO; +SERT-141 PO; +VITAD1000T PO
[2024-04-16 09:45] LABS: ALBUMIN 2.4 G/DL (3.2-5.2); BILIRUBIN,DIRECT 0.5 MG/DL (<0.4); BILIRUBIN,TOTAL 1.1 MG/DL (0.3-1.2); TOTAL PROTEIN 5.6 G/DL (5.7-8.2)
[2024-04-16 09:48] LABS: FERRITIN 1541.3 NG/ML (7.3-270.7)
== END ==
LOC: M LAB 08:53
PROVIDERS: ATTEND Internal Medicine Gastroenterology
DX: K58.0 Irritable bowel syndrome with diarrhea (principal)

== ENCOUNTER → 2024-04-16 | Outpatient (CLI) | payer OTHER ==
[2024-04-16 09:29] LABS: BASO # 0.1 10^3/uL (0.0-0.2); BASO % 0.8 % (0.0-1.0); EOS # 0.1 10^3/uL (0.0-0.5); EOS % 0.8 % (0.0-3.0); HEMATOCRIT 28.3 % (36.0-47.0); HEMOGLOBIN 9.6 g/dl (12.0-15.5); LYMPH # 1.3 10^3/uL (1.5-5.0); LYMPH % 16.1 % (24.0-44.0); MEAN CORPUSCULAR HEMOGLOBIN 35.4 pg (27.0-33.0); MEAN CORPUSCULAR HGB CONC 33.9 g/dl (32.0-36.5); MEAN CORPUSCULAR VOLUME 104.4 fl (80.0-96.0); MONO # 0.9 10^3/uL (0.0-0.8); MONO % 12.1 % (2.0-8.0); NEUTROPHILS # 5.4 10^3/uL (1.5-8.5); NEUTROPHILS % 69.7 % (36.0-66.0); PLATELET COUNT, AUTOMATED 232 10^3/uL (150-450); RED BLOOD COUNT 2.71 10^6/uL (4.00-5.40); WHITE BLOOD COUNT 7.8 10^3/uL (4.0-10.0)
[2024-04-16 09:47] LABS: ALBUMIN 2.4 G/DL (3.2-5.2); ALKALINE PHOSPHATASE 265 U/L (46-116); ALT/SGPT 80 U/L (7.0-40); AST/SGOT 160 U/L (<34); BILIRUBIN,TOTAL 1.1 MG/DL (0.3-1.2); BLOOD UREA NITROGEN 7 MG/DL (9-23); CALCIUM LEVEL 8.2 MG/DL (8.5-10.1); CARBON DIOXIDE LEVEL 24 MMOL/L (20-31); CHLORIDE LEVEL 106 MMOL/L (98-107); CREATININE FOR GFR 0.97 MG/DL (0.55-1.30); FOLATE 12.58 NG/ML (>5.4); GLOMERULAR FILTRATION RATE > 60.0 (>51); GLUCOSE, FASTING 122 MG/DL (60-100); POTASSIUM SERUM 3.2 MMOL/L (3.5-5.1); SODIUM LEVEL 139 MMOL/L (136-145); TOTAL PROTEIN 5.6 G/DL (5.7-8.2)
[2024-04-16 09:48] LABS: THYROID STIMULATING HORMONE 14.941 uIU/ML (0.55-4.78); VITAMIN B12 LEVEL 749 PG/ML (211-911)
== END ==
LOC: M LAB 08:55
PROVIDERS: ATTEND Internal Medicine Hematology
DX: D64.9 Anemia, unspecified (principal)

== ENCOUNTER 2024-05-04 08:57 | Emergency (ER) | payer OTHER ==
[~2024-05-04] VITALS: Ht 162.6 cm; Wt 54.5 kg
[~2024-05-04 08:57] MED LIST changes: -ESOM0.1C PO; +ESOM20CA2 PO
[2024-05-04 10:28] VITALS: BP 113/72; TEMP 98.9; O2SAT 100
[2024-05-04] MEDS ORDERED: INDO50CA91 PO (10:31)
[2024-05-04] MEDS: NAPROXEN 250 MG TAB PO ONE (10:36)
== END 2024-05-04 10:47 | disposition home or self-care (01) ==
LOC: M ED 08:57
DX: M10.072 Idiopathic gout, left ankle and foot (principal); R22.42 Localized swelling, mass and lump, left lower limb; I10 Essential (primary) hypertension; E03.9 Hypothyroidism, unspecified; F17.210 Nicotine dependence, cigarettes, uncomplicated; F10.10 Alcohol abuse, uncomplicated; Z79.1 Long term (current) use of non-steroidal anti-inflammatories (NSAID); Z79.810 Long term (current) use of selective estrogen receptor modulators (SERMs); Z79.899 Other long term (current) drug therapy

== ENCOUNTER 2024-06-07 06:25 | Inpatient (IN) | payer OTHER ==
[2024-06-07] VITALS (16 sets, daily range): BP systolic 60–125; BP diastolic 40–65; TEMP 96.9–97.3; O2SAT 94–99
[~2024-06-07] VITALS: Ht 162.6 cm; Wt 64.6 kg
[2024-06-07] MEDS ORDERED: IBUP-1114 PO (08:10)
[2024-06-07] MEDS ORDERED: ALLO300T2 PO (08:10)
[2024-06-07] MEDS ORDERED: LISI20TA33 PO (08:10)
[2024-06-07] MEDS: atenoloL 25 MG TAB PO SCH (09:00)
[2024-06-07 09:34] LABS: BASO % 0.2 % (0.0-1.0); EOS % 0.2 % (0.0-3.0); HEMOGLOBIN 7.4 g/dl (12.0-15.5); LYMPH # 0.7 10^3/uL (1.5-5.0); MEAN CORPUSCULAR HEMOGLOBIN 36.3 pg (27.0-33.0); MEAN CORPUSCULAR HGB CONC 36.1 g/dl (32.0-36.5); MEAN CORPUSCULAR VOLUME 100.5 fl (80.0-96.0); MONO % 11.4 % (2.0-8.0); NEUTROPHILS # 7.2 10^3/uL (1.5-8.5); NEUTROPHILS % 79.4 % (36.0-66.0); PLATELET COUNT, AUTOMATED 163 10^3/uL (150-450); RED BLOOD COUNT 2.04 10^6/uL (4.00-5.40)
[2024-06-07] MEDS: BENZONATATE 100MG CAPSULE PO ONE (09:34)
[2024-06-07] MEDS: ONDANSETRON 4MG 2ML VIAL IV ONE (09:34)
[2024-06-07] MEDS: NS 1,000 ML IV ONE ×2 (09:34→21:22)
[2024-06-07 09:35] LABS: HEMATOCRIT 20.5 % (36.0-47.0)
[2024-06-07 09:52] LABS: RSV AMPLIFICATION NEGATIVE (NEGATIVE)
[2024-06-07 10:02] LABS: ALBUMIN 2.2 G/DL (3.2-5.2); BILIRUBIN,DIRECT 1.1 MG/DL (<0.4); BILIRUBIN,TOTAL 1.5 MG/DL (0.3-1.2); CALCIUM LEVEL 5.8 MG/DL (8.5-10.1); CREATININE FOR GFR 3.62 MG/DL (0.55-1.30); GLOMERULAR FILTRATION RATE 13.7 (>51); POTASSIUM SERUM 3.2 MMOL/L (3.5-5.1); TOTAL PROTEIN 5.2 G/DL (5.7-8.2)
[2024-06-07 10:33] LABS: IONIZED CALCIUM 3.2 MG/DL (4.5-5.3)
[2024-06-07 11:20] LABS: THYROID STIMULATING HORMONE 25.517 uIU/ML (0.55-4.78)
[2024-06-07 11:30] LABS: MAGNESIUM LEVEL 0.7 MG/DL (1.8-2.4)
[2024-06-07] MEDS: KCL 10MEQ/100ML SWI (KRUN) 10 MEQ in IV 1 EA IV ONE (11:30)
[2024-06-07] MEDS ORDERED: **NOTE PATIENT COMMENT** MISC XX SCH (12:05)
[2024-06-07] MEDS ORDERED: ATEN25TA PO (12:12)
[2024-06-07] MEDS: MULTIVITAMINS/MINERALS THERAP 1 TAB PO SCH (12:15)
[2024-06-07] MEDS: FOLIC ACID 1MG TAB PO SCH (12:15)
[2024-06-07] MEDS: THIAMINE 100 MG TAB PO SCH (12:16)
[2024-06-07] MEDS ORDERED: INDO50CA91 PO (12:23)
[2024-06-07] MEDS ORDERED: VITA100093 PO (12:23)
[2024-06-07] MEDS ORDERED: HOME MED LIST COMPLETE! XX SCH (12:30)
[2024-06-07] MEDS: MAG SULF 1GM/100ML (MAG RUN) 1 GM in IV 1 EA IV ONE ×2 (12:41→23:34)
[2024-06-07 12:46] LABS: INR 1.53; PARTIAL THROMBOPLASTIN TIME 36.1 SECONDS (24.8-34.2); PROTHROMBIN TIME 17.9 SECONDS (12.5-14.5)
[2024-06-07 12:53] LABS: INR 1.61; PROTHROMBIN TIME 18.6 SECONDS (12.5-14.5)
[2024-06-07 13:13] LABS: PTH INTACT 77.7 PG/ML (18.5-88.0)
[2024-06-07 13:14] LABS: TOTAL 25(OH) VITAMIN D 44.8 NG/ML (20.0-100.0)
[2024-06-07 13:18] LABS: FREE T4 0.61 NG/DL (0.89-1.76)
[2024-06-07] MEDS: SODIUM BICARBONATE 75 MEQ in KCL 20MEQ IN 0.45NS 1000ML 1,000 ML IV SCH (14:10)
[2024-06-07] MEDS: LEVOTHYROXINE 150MCG TABLET (0.15MG) PO SCH (16:25)
[2024-06-07 16:57] LABS: ALBUMIN 2.2 G/DL (3.2-5.2); CALCIUM LEVEL 5.5 MG/DL (8.5-10.1); CREATININE FOR GFR 3.38 MG/DL (0.55-1.30); GLOMERULAR FILTRATION RATE 14.9 (>51); MAGNESIUM LEVEL 1.1 MG/DL (1.8-2.4); PHOSPHORUS LEVEL 4.6 MG/DL (2.5-4.9)
[2024-06-07] MEDS: POTASSIUM CHLORIDE 10MEQ SR TABLET PO ONE ×2 (17:19→23:34)
[2024-06-07] MEDS: CALCIUM CARBONATE 500 MG CHEW U/D PO SCH (17:19)
[2024-06-07] MEDS: MAG SULF 1GM/100ML (MAG RUN) 1 GM in IV 1 EA IV SCH (17:20)
[2024-06-07] MEDS: LORazepam 2 MG TAB PO PRN (18:27)
[2024-06-07] MEDS: ONDANSETRON 4MG 2ML VIAL IV PRN (18:28)
[2024-06-07] MEDS: CALCIUM GLUCONATE 1,000 MG in D5W MINI-BAG PLUS 100 ML IV ONE (21:22)
[2024-06-07 22:52] LABS: ALBUMIN 1.8 G/DL (3.2-5.2); CALCIUM LEVEL 5.4 MG/DL (8.5-10.1); CREATININE FOR GFR 3.17 MG/DL (0.55-1.30); MAGNESIUM LEVEL 1.7 MG/DL (1.8-2.4); PHOSPHORUS LEVEL 3.7 MG/DL (2.5-4.9); POTASSIUM SERUM 3.1 MMOL/L (3.5-5.1)
[2024-06-08] VITALS (63 sets, daily range): BP systolic 75–115; BP diastolic 51–75; TEMP 97.3–98.8; O2SAT 88–100
[2024-06-08] MEDS: CALCIUM CHLORIDE 10% 1 GM in D5W 100 ML IV ONE (01:31)
[2024-06-08] MEDS: NOREPINEPHRINE 4MG IN D5 250ML 4 MG in IV 1 EA IV SCH (01:52)
[2024-06-08 04:10] LABS: CALCIUM LEVEL 6.8 MG/DL (8.5-10.1); CREATININE FOR GFR 3.03 MG/DL (0.55-1.30); GLOMERULAR FILTRATION RATE 16.9 (>51); MAGNESIUM LEVEL 2.1 MG/DL (1.8-2.4); POTASSIUM SERUM 3.9 MMOL/L (3.5-5.1)
[2024-06-08 06:41] LABS: MEAN CORPUSCULAR HEMOGLOBIN 36.3 pg (27.0-33.0); MEAN CORPUSCULAR HGB CONC 34.8 g/dl (32.0-36.5); MEAN CORPUSCULAR VOLUME 104.1 fl (80.0-96.0); PLATELET COUNT, AUTOMATED 141 10^3/uL (150-450); RED BLOOD COUNT 1.93 10^6/uL (4.00-5.40); WHITE BLOOD COUNT 7.6 10^3/uL (4.0-10.0)
[2024-06-08 06:44] LABS: HEMATOCRIT 20.1 % (36.0-47.0)
[2024-06-08 07:03] LABS: BILIRUBIN,TOTAL 1.5 MG/DL (0.3-1.2); CREATININE FOR GFR 2.94 MG/DL (0.55-1.30); GLOMERULAR FILTRATION RATE 17.5 (>51); POTASSIUM SERUM 4.3 MMOL/L (3.5-5.1)
[2024-06-08] MEDS ORDERED: LORazepam 1 MG TAB PO PRN (08:50)
[2024-06-08] MEDS: HEPARIN SOD (PORCINE) 5000UNITS/ML 1ML VIAL/SYRINGE SQ SCH (09:29)
[2024-06-08] MEDS: SERTRALINE HCL 50 MG TAB PO SCH (09:29)
[2024-06-08] MEDS: MIDODRINE 5 MG TAB PO SCH (09:30)
[2024-06-08] MEDS ORDERED: MIDODRINE 5 MG TAB PO SCH (09:35)
[2024-06-08] MEDS: SODIUM CHLORIDE 0.9% 500 ML IV ONE (12:47)
[2024-06-09] VITALS (27 sets, daily range): BP systolic 86–132; BP diastolic 58–76; TEMP 97.5–98.8; O2SAT 96–100
[2024-06-09 05:26] LABS: MEAN CORPUSCULAR HEMOGLOBIN 34.9 pg (27.0-33.0); MEAN CORPUSCULAR HGB CONC 34.5 g/dl (32.0-36.5); MEAN CORPUSCULAR VOLUME 101.2 fl (80.0-96.0); PLATELET COUNT, AUTOMATED 133 10^3/uL (150-450); RED BLOOD COUNT 1.69 10^6/uL (4.00-5.40); WHITE BLOOD COUNT 8.1 10^3/uL (4.0-10.0)
[2024-06-09 05:27] LABS: HEMATOCRIT 17.1 % (36.0-47.0); HEMOGLOBIN 5.9 g/dl (12.0-15.5)
[2024-06-09 05:48] LABS: ALBUMIN 1.8 G/DL (3.2-5.2); ALKALINE PHOSPHATASE 377 U/L (46-116); ALT/SGPT 41 U/L (7.0-40); AST/SGOT 102 U/L (<34); BILIRUBIN,TOTAL 1.5 MG/DL (0.3-1.2); BLOOD UREA NITROGEN 17 MG/DL (9-23); CALCIUM LEVEL 6.5 MG/DL (8.5-10.1); CARBON DIOXIDE LEVEL 26 MMOL/L (20-31); CHLORIDE LEVEL 99 MMOL/L (98-107); CREATININE FOR GFR 2.46 MG/DL (0.55-1.30); GLOMERULAR FILTRATION RATE 21.5 (>51); GLUCOSE, FASTING 93 MG/DL (60-100); MAGNESIUM LEVEL 1.6 MG/DL (1.8-2.4); POTASSIUM SERUM 4.6 MMOL/L (3.5-5.1); SODIUM LEVEL 130 MMOL/L (136-145); TOTAL PROTEIN 4.5 G/DL (5.7-8.2)
[2024-06-09 07:26] LABS: FOLATE 21.58 NG/ML (>5.4)
[2024-06-09 07:31] LABS: VITAMIN B12 LEVEL > 2000 PG/ML (211-911)
[2024-06-09] MEDS: MAG SULF 1GM/100ML (MAG RUN) 1 GM in IV 1 EA IV ONE (12:10)
[2024-06-09 13:23] LABS: HEMATOCRIT 27.2 % (36.0-47.0)
[2024-06-09 13:33] LABS: HEMOGLOBIN 9.5 g/dl (12.0-15.5)
[2024-06-09] MEDS: guaiFENesin DM LIQ 10ML UD PO ONE (23:22)
[2024-06-09] MEDS: ACETAMINOPHEN TAB 650MG DOSE (2X325MG) PO PRN (23:23)
[2024-06-10] VITALS (8 sets, daily range): BP systolic 110–149; BP diastolic 63–79; TEMP 97.3–98.8; O2SAT 97–100
[2024-06-10 05:18] LABS: HEMATOCRIT 28.7 % (36.0-47.0); HEMOGLOBIN 10.2 g/dl (12.0-15.5); MEAN CORPUSCULAR HEMOGLOBIN 33.9 pg (27.0-33.0); MEAN CORPUSCULAR HGB CONC 35.5 g/dl (32.0-36.5); MEAN CORPUSCULAR VOLUME 95.3 fl (80.0-96.0); PLATELET COUNT, AUTOMATED 123 10^3/uL (150-450); RED BLOOD COUNT 3.01 10^6/uL (4.00-5.40); WHITE BLOOD COUNT 10.6 10^3/uL (4.0-10.0)
[2024-06-10 05:42] LABS: ALBUMIN 1.9 G/DL (3.2-5.2); BILIRUBIN,TOTAL 2.8 MG/DL (0.3-1.2); CREATININE FOR GFR 2.07 MG/DL (0.55-1.30); GLOMERULAR FILTRATION RATE 26.2 (>51); MAGNESIUM LEVEL 1.5 MG/DL (1.8-2.4); POTASSIUM SERUM 5.2 MMOL/L (3.5-5.1); TOTAL PROTEIN 4.9 G/DL (5.7-8.2)
[2024-06-10] MEDS: MAG SULF 1GM/100ML (MAG RUN) 1 GM in IV 1 EA IV SCH (06:04)
[2024-06-10] MEDS: NS 1,000 ML IV SCH (06:04)
[2024-06-10] MEDS ORDERED: MAG SULF 1GM/100ML (MAG RUN) 1 GM in IV 1 EA IV SCH (06:30)
[2024-06-10 11:38] LABS: FREE KAPPA LIGHT CHAINS SERUM 56.1 mg/L (3.3-19.4); FREE LAMBDA LIGHT CHAINS SERUM 44.8 mg/L (5.7-26.3); KAPPA/LAMBDA RATIO SERUM 1.25 (0.26-1.65)
[2024-06-10] MEDS: guaiFENesin DM LIQ 10ML UD PO PRN (18:07)
[2024-06-10] MEDS: LOPERAMIDE 2 MG CAPLET PO PRN (18:07)
[2024-06-10] MEDS: RAMELTEON 8 MG TAB (ROZEREM) PO SCH (20:02)
[2024-06-10] MEDS: APIXABAN 5 MG TAB (ELIQUIS) PO SCH (21:22)
[2024-06-11 03:29] VITALS: BP 128/83; TEMP 98.6; O2SAT 94
[2024-06-11 05:06] LABS: HEMATOCRIT 30.1 % (36.0-47.0); HEMOGLOBIN 10.5 g/dl (12.0-15.5); MEAN CORPUSCULAR HEMOGLOBIN 34.2 pg (27.0-33.0); MEAN CORPUSCULAR HGB CONC 34.9 g/dl (32.0-36.5); PLATELET COUNT, AUTOMATED 133 10^3/uL (150-450); RED BLOOD COUNT 3.07 10^6/uL (4.00-5.40); WHITE BLOOD COUNT 10.7 10^3/uL (4.0-10.0)
[2024-06-11 05:29] LABS: ALBUMIN 2.1 G/DL (3.2-5.2); BILIRUBIN,TOTAL 2.5 MG/DL (0.3-1.2); CALCIUM LEVEL 8.3 MG/DL (8.5-10.1); CREATININE FOR GFR 1.86 MG/DL (0.55-1.30); GLOMERULAR FILTRATION RATE 29.6 (>51); MAGNESIUM LEVEL 1.9 MG/DL (1.8-2.4); POTASSIUM SERUM 5.4 MMOL/L (3.5-5.1); TOTAL PROTEIN 5.3 G/DL (5.7-8.2)
[2024-06-11] MEDS: PATIROMER SORBITEX CALCIUM 8.4 GM POWDER PACKET (VELTASSA) PO ONE (07:47)
[2024-06-11 08:45] VITALS: BP 127/79; TEMP 98; O2SAT 98
[2024-06-11 11:58] LABS: CALCIUM LEVEL 8.2 MG/DL (8.5-10.1); CREATININE FOR GFR 1.79 MG/DL (0.55-1.30); POTASSIUM SERUM 5.5 MMOL/L (3.5-5.1)
[2024-06-11 13:26] VITALS: BP 132/90; TEMP 98.3; O2SAT 88
[2024-06-11 16:11] VITALS: BP 118/73; TEMP 98.1; O2SAT 99
[2024-06-11 18:57] LABS: CALCIUM LEVEL 8.9 MG/DL (8.5-10.1); CREATININE FOR GFR 1.72 MG/DL (0.55-1.30); GLOMERULAR FILTRATION RATE 32.4 (>51); POTASSIUM SERUM 4.9 MMOL/L (3.5-5.1)
[2024-06-11 20:00] VITALS: BP 109/75; TEMP 98.6; O2SAT 97
[2024-06-12] MEDS ORDERED: FOLIC ACID 1MG TAB As Ordered ONE (08:10)
[2024-06-12] MEDS ORDERED: APIXABAN 5 MG TAB (ELIQUIS) As Ordered ONE (08:10)
[2024-06-12] MEDS ORDERED: MULTIVITAMINS/MINERALS THERAP 1 TAB As Ordered ONE (08:10)
[2024-06-12] MEDS ORDERED: MIDODRINE 5 MG TAB As Ordered ONE (08:10)
[2024-06-12] MEDS ORDERED: CALCIUM CARBONATE 500 MG CHEW U/D PO SCH (09:00)
[2024-06-12 13:06] LABS: HEMATOCRIT 29.1 % (36.0-47.0); HEMOGLOBIN 10.1 g/dl (12.0-15.5); MEAN CORPUSCULAR HEMOGLOBIN 34.6 pg (27.0-33.0); MEAN CORPUSCULAR HGB CONC 34.7 g/dl (32.0-36.5); MEAN CORPUSCULAR VOLUME 99.7 fl (80.0-96.0); PLATELET COUNT, AUTOMATED 129 10^3/uL (150-450); RED BLOOD COUNT 2.92 10^6/uL (4.00-5.40); WHITE BLOOD COUNT 10.7 10^3/uL (4.0-10.0)
[2024-06-12 13:49] LABS: CALCIUM LEVEL 8.9 MG/DL (8.5-10.1); CREATININE FOR GFR 1.76 MG/DL (0.55-1.30); GLOMERULAR FILTRATION RATE 31.6 (>51); MAGNESIUM LEVEL 1.6 MG/DL (1.8-2.4); POTASSIUM SERUM 4.9 MMOL/L (3.5-5.1)
[2024-06-12 14:15] LABS: BILIRUBIN,TOTAL 2.3 MG/DL (0.3-1.2)
[2024-06-17] MEDS ORDERED: APIXABAN 5 MG TAB (ELIQUIS) PO SCH (21:00)
== END 2024-06-12 12:40 | disposition home or self-care (01) | DRG 682 ==
LOC: M ED 06:25 → M ED INP 11:31 → M PCU 14:05 → M ICU 22:12
PROVIDERS: ADMIT Family Medicine; ATTEND Internal Medicine
PROC: 30233N1 Transfusion of Nonautologous Red Blood Cells into Peripheral Vein, Percutaneous Approach (ICD-10-PCS; principal; 2024-06-08)
DX: N17.9 Acute kidney failure, unspecified (principal); I81 Portal vein thrombosis; E87.1 Hypo-osmolality and hyponatremia; F10.239 Alcohol dependence with withdrawal, unspecified; E87.20 Acidosis, unspecified; E83.51 Hypocalcemia; E03.9 Hypothyroidism, unspecified; K52.9 Noninfective gastroenteritis and colitis, unspecified; D64.9 Anemia, unspecified; F32.A Depression, unspecified; I10 Essential (primary) hypertension; E55.9 Vitamin D deficiency, unspecified; E21.1 Secondary hyperparathyroidism, not elsewhere classified; K70.30 Alcoholic cirrhosis of liver without ascites; R74.01 Elevation of levels of liver transaminase levels; F17.210 Nicotine dependence, cigarettes, uncomplicated; E87.6 Hypokalemia; R26.89 Other abnormalities of gait and mobility; E83.42 Hypomagnesemia; E87.5 Hyperkalemia; Z79.890 Hormone replacement therapy; Z79.899 Other long term (current) drug therapy

== ENCOUNTER → 2024-06-24 | Outpatient (CLI) | payer OTHER ==
[~2024-06-24] MED LIST changes: +ALLO300T2 PO; +IBUP-1114 PO; +LISI20TA33 PO; +VITA100093 PO
[2024-06-24 17:05] LABS: BASO # 0.1 10^3/uL (0.0-0.2); BASO % 0.8 % (0.0-1.0); EOS # 0.1 10^3/uL (0.0-0.5); EOS % 0.8 % (0.0-3.0); HEMATOCRIT 27.9 % (36.0-47.0); HEMOGLOBIN 8.6 g/dl (12.0-15.5); LYMPH # 1.3 10^3/uL (1.5-5.0); LYMPH % 17.9 % (24.0-44.0); MEAN CORPUSCULAR HEMOGLOBIN 34.4 pg (27.0-33.0); MEAN CORPUSCULAR HGB CONC 30.8 g/dl (32.0-36.5); MEAN CORPUSCULAR VOLUME 111.6 fl (80.0-96.0); MONO # 0.7 10^3/uL (0.0-0.8); MONO % 9.5 % (2.0-8.0); NEUTROPHILS # 5.1 10^3/uL (1.5-8.5); NEUTROPHILS % 70.4 % (36.0-66.0); PLATELET COUNT, AUTOMATED 471 10^3/uL (150-450); WHITE BLOOD COUNT 7.2 10^3/uL (4.0-10.0)
[2024-06-24 17:13] LABS: ALBUMIN 3.2 G/DL (3.2-5.2); BILIRUBIN,TOTAL 0.8 MG/DL (0.3-1.2); CALCIUM LEVEL 9.4 MG/DL (8.5-10.1); CREATININE FOR GFR 1.49 MG/DL (0.55-1.30); GLOMERULAR FILTRATION RATE 38.3 (>51); POTASSIUM SERUM 4.3 MMOL/L (3.5-5.1); TOTAL PROTEIN 6.8 G/DL (5.7-8.2)
[2024-06-24 17:26] LABS: INR 1.29; PROTHROMBIN TIME 15.7 SECONDS (12.5-14.5)
== END ==
LOC: M LRY 11:33
PROVIDERS: ATTEND Internal Medicine Gastroenterology
DX: D64.9 Anemia, unspecified (principal)

== ENCOUNTER 2024-06-27 15:05 | Inpatient (IN) | payer OTHER ==
[~2024-06-27] VITALS: Ht 162.6 cm; Wt 71.6 kg
[~2024-06-27 15:05] MED LIST changes: +CLAR10CA3 PO; +ELIQ5TAB PO
[2024-06-27] MEDS: NS 1,000 ML IV ONE (17:26)
[2024-06-27 17:46] LABS: BASO % 0.2 % (0.0-1.0); EOS % 0.2 % (0.0-3.0); HEMATOCRIT 26.8 % (36.0-47.0); HEMOGLOBIN 8.5 g/dl (12.0-15.5); LYMPH # 0.8 10^3/uL (1.5-5.0); LYMPH % 10.2 % (24.0-44.0); MEAN CORPUSCULAR HEMOGLOBIN 34.8 pg (27.0-33.0); MEAN CORPUSCULAR HGB CONC 31.7 g/dl (32.0-36.5); MEAN CORPUSCULAR VOLUME 109.8 fl (80.0-96.0); MONO # 0.4 10^3/uL (0.0-0.8); MONO % 5.1 % (2.0-8.0); NEUTROPHILS # 6.7 10^3/uL (1.5-8.5); NEUTROPHILS % 83.6 % (36.0-66.0); PLATELET COUNT, AUTOMATED 477 10^3/uL (150-450); RED BLOOD COUNT 2.44 10^6/uL (4.00-5.40)
[2024-06-27] MEDS ORDERED: ISOVUE-370 76% 100ML VIAL As Ordered ONE (17:46)
[2024-06-27 17:50] LABS: INR 1.39; PROTHROMBIN TIME 16.6 SECONDS (12.5-14.5)
[2024-06-27 18:02] LABS: ETHYL ALCOHOL (ETHANOL) < 0.003 % (0.000-0.010); LIPASE 110 U/L (12-53)
[2024-06-27 18:17] LABS: ALBUMIN 2.9 G/DL (3.2-5.2); ALKALINE PHOSPHATASE 162 U/L (46-116); ALT/SGPT 34 U/L (7.0-40); AST/SGOT 46 U/L (<34); BILIRUBIN,DIRECT 0.5 MG/DL (<0.4); BILIRUBIN,TOTAL 0.7 MG/DL (0.3-1.2); BLOOD UREA NITROGEN 15 MG/DL (9-23); CALCIUM LEVEL 8.6 MG/DL (8.5-10.1); CARBON DIOXIDE LEVEL 13 MMOL/L (20-31); CHLORIDE LEVEL 119 MMOL/L (98-107); CREATININE FOR GFR 1.42 MG/DL (0.55-1.30); GLOMERULAR FILTRATION RATE 40.4 (>51); GLUCOSE, FASTING 128 MG/DL (60-100); MAGNESIUM LEVEL 1.3 MG/DL (1.8-2.4); POTASSIUM SERUM 3.5 MMOL/L (3.5-5.1); SODIUM LEVEL 142 MMOL/L (136-145); THYROID STIMULATING HORMONE 5.036 uIU/ML (0.55-4.78); TOTAL PROTEIN 5.9 G/DL (5.7-8.2)
[2024-06-27] MEDS: PIPERACILLIN/TAZOBACTAM SOD 4.5 GM in D5W MINI-BAG PLUS 50 ML IV ONE (18:40)
[2024-06-27] MEDS: MAG SULF 1GM/100ML (MAG RUN) 1 GM in IV 1 EA IV ONE (19:35)
[2024-06-27] MEDS: NS 1,590 ML in IV 1 EA IV ONE (19:35)
[2024-06-27] MEDS ORDERED: HOME MED LIST COMPLETE! XX SCH (19:50)
[2024-06-27] MEDS ORDERED: MOM 30ML SUSPENSION UDC PO PRN (21:25)
[2024-06-27 23:03] VITALS: BP 124/72; TEMP 98.2; O2SAT 100
[2024-06-28] VITALS (14 sets, daily range): BP systolic 99–126; BP diastolic 58–76; TEMP 97.8–101.1; O2SAT 95–99
[2024-06-28] MEDS: PIPERACILLIN/TAZOBACTAM SOD 4.5 GM in D5W MINI-BAG PLUS 50 ML IV SCH (00:27)
[2024-06-28] MEDS: NS 1,000 ML IV SCH (00:27)
[2024-06-28] MEDS: MORPHINE 2 MG/ML 1ML VIAL IV PRN (00:28)
[2024-06-28] MEDS: ACETAMINOPHEN TAB 650MG DOSE (2X325MG) PO PRN (03:05)
[2024-06-28] MEDS: LEVOTHYROXINE 150MCG TABLET (0.15MG) PO SCH (05:08)
[2024-06-28 07:24] LABS: MEAN CORPUSCULAR HEMOGLOBIN 34.8 pg (27.0-33.0); MEAN CORPUSCULAR HGB CONC 32.2 g/dl (32.0-36.5); MEAN CORPUSCULAR VOLUME 108.2 fl (80.0-96.0); RED BLOOD COUNT 1.84 10^6/uL (4.00-5.40); WHITE BLOOD COUNT 12.7 10^3/uL (4.0-10.0)
[2024-06-28 07:29] LABS: HEMATOCRIT 19.9 % (36.0-47.0); HEMOGLOBIN 6.4 g/dl (12.0-15.5); PLATELET COUNT, AUTOMATED 331 10^3/uL (150-450)
[2024-06-28 07:52] LABS: CALCIUM LEVEL 7.9 MG/DL (8.5-10.1); CREATININE FOR GFR 1.51 MG/DL (0.55-1.30); GLOMERULAR FILTRATION RATE 37.7 (>51); MAGNESIUM LEVEL 1.5 MG/DL (1.8-2.4); POTASSIUM SERUM 3.7 MMOL/L (3.5-5.1); TOTAL PROTEIN 4.5 G/DL (5.7-8.2)
[2024-06-28 08:53] LABS: HEMATOCRIT 19.8 % (36.0-47.0); HEMOGLOBIN 6.4 g/dl (12.0-15.5)
[2024-06-28] MEDS: DOCUSATE SODIUM 100MG CAPSULE PO SCH (09:00)
[2024-06-28] MEDS: SERTRALINE HCL 50 MG TAB PO SCH (09:19)
[2024-06-28] MEDS: allopurinoL 300 MG TAB PO SCH (09:19)
[2024-06-28] MEDS: APIXABAN 5 MG TAB (ELIQUIS) PO SCH (10:25)
[2024-06-28] MEDS: PIPERACILLIN/TAZOBACTAM SOD 3.375 GM in D5W MINI-BAG PLUS 50 ML IV SCH (18:38)
[2024-06-28 19:07] LABS: HEMATOCRIT 32.4 % (36.0-47.0)
[2024-06-28 19:19] LABS: HEMOGLOBIN 10.9 g/dl (12.0-15.5)
[2024-06-28] MEDS: LR 1,000 ML IV SCH (19:29)
[2024-06-28] MEDS: MAG SULF 1GM/100ML (MAG RUN) 1 GM in IV 1 EA IV ONE (19:52)
[2024-06-29] VITALS (10 sets, daily range): BP systolic 108–129; BP diastolic 62–86; TEMP 97.9–99.6; O2SAT 96–98
[2024-06-29 07:38] LABS: BASO % 0.1 % (0.0-1.0); HEMATOCRIT 28.2 % (36.0-47.0); HEMOGLOBIN 9.5 g/dl (12.0-15.5); LYMPH # 0.4 10^3/uL (1.5-5.0); LYMPH % 2.8 % (24.0-44.0); MEAN CORPUSCULAR HEMOGLOBIN 33.7 pg (27.0-33.0); MEAN CORPUSCULAR HGB CONC 33.7 g/dl (32.0-36.5); MONO # 1.4 10^3/uL (0.0-0.8); NEUTROPHILS # 13.5 10^3/uL (1.5-8.5); NEUTROPHILS % 87.5 % (36.0-66.0); PLATELET COUNT, AUTOMATED 263 10^3/uL (150-450); RED BLOOD COUNT 2.82 10^6/uL (4.00-5.40); WHITE BLOOD COUNT 15.5 10^3/uL (4.0-10.0)
[2024-06-29 07:45] LABS: CALCIUM LEVEL 8.1 MG/DL (8.5-10.1); CREATININE FOR GFR 1.67 MG/DL (0.55-1.30); GLOMERULAR FILTRATION RATE 33.5 (>51)
[2024-06-29] MEDS ORDERED: NS 1,000 ML IV SCH (07:55)
[2024-06-29] MEDS ORDERED: LIDOCAINE 2% 100MG/5ML SDV (FOR ANES.) As Ordered ONE (08:36)
[2024-06-29] MEDS ORDERED: fentaNYL 250 MCG/5 ML INJECTION As Ordered ONE (08:36)
[2024-06-29] MEDS ORDERED: propofoL 200 MG/20 ML VIAL As Ordered ONE (08:36)
[2024-06-29] MEDS ORDERED: ROCURONIUM BROMIDE 50MG/5ML VIAL As Ordered ONE (08:36)
[2024-06-29] MEDS ORDERED: MIDAZOLAM INJ 2MG/2ML VIAL As Ordered ONE (08:36)
[2024-06-29] MEDS ORDERED: PHENYLephrine 500MCG 5ML (100MCG/ML) SYRINGE As Ordered ONE (10:03)
[2024-06-29] MEDS ORDERED: ACETAMINOPHEN 1000MG 100ML IV BAG As Ordered ONE (10:29)
[2024-06-29] MEDS ORDERED: ONDANSETRON 4MG 2ML VIAL As Ordered ONE (10:29)
[2024-06-29] MEDS ORDERED: SUGAMMADEX SODIUM 500 MG/5 ML VIAL (BRIDION) As Ordered ONE (10:29)
[2024-06-29] MEDS ORDERED: fentaNYL 100 MCG/2 ML INJECTION IV PRN (11:55)
[2024-06-29] MEDS ORDERED: ONDANSETRON 4MG 2ML VIAL IV PRN (11:55)
[2024-06-29] MEDS ORDERED: oxyCODONE 5MG TAB PO PRN (11:55)
[2024-06-29] MEDS ORDERED: MORPHINE 2 MG/ML 1ML VIAL IV PRN (11:55)
[2024-06-29] MEDS ORDERED: MEPERIDINE 25 MG/ML 1ML VIAL IV PRN (11:55)
[2024-06-29] MEDS ORDERED: ZOSYN 3.375GM VIAL As Ordered ONE (12:11)
[2024-06-29] MEDS: ALBUTEROL SULFATE 2.5MG/0.5ML INH NEB SOLN INH ONE (14:43)
[2024-06-29 14:54] LABS: HEMATOCRIT 30.9 % (36.0-47.0); HEMOGLOBIN 10.1 g/dl (12.0-15.5)
[2024-06-29] MEDS: SODIUM BICARBONATE 150 MEQ in STERILE WATER LITER BAG 1,000 ML IV SCH (17:00)
[2024-06-29] MEDS: SUCRALFATE SUSP 1GM/10ML UD PO SCH (18:00)
[2024-06-29 19:35] LABS: HEMATOCRIT 30.7 % (36.0-47.0); HEMOGLOBIN 10.4 g/dl (12.0-15.5)
[2024-06-29] MEDS: FLUCONAZOLE 400 MG in IV 1 EA IV SCH (20:14)
[2024-06-29] MEDS: PANTOPRAZOLE 40MG VIAL IV SCH (20:14)
[2024-06-30 01:12] LABS: HEMATOCRIT 23.6 % (36.0-47.0)
[2024-06-30 01:13] LABS: HEMOGLOBIN 8.2 g/dl (12.0-15.5)
[2024-06-30 03:19] VITALS: BP 127/82; TEMP 98.2; O2SAT 95
[2024-06-30 05:33] LABS: BASO % 0.1 % (0.0-1.0); EOS % 0.1 % (0.0-3.0); HEMATOCRIT 24.2 % (36.0-47.0); HEMOGLOBIN 8.4 g/dl (12.0-15.5); LYMPH # 0.4 10^3/uL (1.5-5.0); LYMPH % 2.4 % (24.0-44.0); MEAN CORPUSCULAR HEMOGLOBIN 33.6 pg (27.0-33.0); MEAN CORPUSCULAR HGB CONC 34.7 g/dl (32.0-36.5); MEAN CORPUSCULAR VOLUME 96.8 fl (80.0-96.0); MONO # 0.9 10^3/uL (0.0-0.8); MONO % 6.1 % (2.0-8.0); NEUTROPHILS # 13.4 10^3/uL (1.5-8.5); NEUTROPHILS % 90.7 % (36.0-66.0); WHITE BLOOD COUNT 14.8 10^3/uL (4.0-10.0)
[2024-06-30 06:05] LABS: ALBUMIN 1.6 G/DL (3.2-5.2); CALCIUM LEVEL 7.7 MG/DL (8.5-10.1); CREATININE FOR GFR 1.79 MG/DL (0.55-1.30); MAGNESIUM LEVEL 1.7 MG/DL (1.8-2.4); POTASSIUM SERUM 3.8 MMOL/L (3.5-5.1); TOTAL PROTEIN 4.6 G/DL (5.7-8.2)
[2024-06-30] MEDS: MAG SULF 1GM/100ML (MAG RUN) 1 GM in IV 1 EA IV ONE ×2 (09:17→10:47)
[2024-06-30 11:56] VITALS: BP 124/80; TEMP 98.1; O2SAT 96
[2024-06-30] MEDS: SODIUM BICARBONATE 150 MEQ, POTASSIUM CHLORIDE INJ 20 MEQ in STERILE WATER LITER BAG 1,... IV SCH (12:24)
[2024-06-30 16:00] VITALS: BP 122/76; TEMP 99.8; O2SAT 98
[2024-06-30 20:03] VITALS: BP 131/81; TEMP 98; O2SAT 96
[2024-06-30 23:40] VITALS: BP 125/83; TEMP 99.8; O2SAT 90
[2024-07-01] VITALS (8 sets, daily range): BP systolic 120–127; BP diastolic 78–82; TEMP 98.3–99.1; O2SAT 89–100
[2024-07-01 05:15] LABS: BASO % 0.1 % (0.0-1.0); EOS # 0.1 10^3/uL (0.0-0.5); EOS % 0.7 % (0.0-3.0); HEMATOCRIT 24.8 % (36.0-47.0); HEMOGLOBIN 8.4 g/dl (12.0-15.5); LYMPH # 0.5 10^3/uL (1.5-5.0); LYMPH % 4.5 % (24.0-44.0); MEAN CORPUSCULAR HEMOGLOBIN 33.6 pg (27.0-33.0); MEAN CORPUSCULAR HGB CONC 33.9 g/dl (32.0-36.5); MEAN CORPUSCULAR VOLUME 99.2 fl (80.0-96.0); MONO # 1.1 10^3/uL (0.0-0.8); MONO % 8.8 % (2.0-8.0); NEUTROPHILS # 10.2 10^3/uL (1.5-8.5); NEUTROPHILS % 85.4 % (36.0-66.0); PLATELET COUNT, AUTOMATED 215 10^3/uL (150-450); WHITE BLOOD COUNT 11.9 10^3/uL (4.0-10.0)
[2024-07-01 05:52] LABS: ALBUMIN 1.6 G/DL (3.2-5.2); BILIRUBIN,TOTAL 0.7 MG/DL (0.3-1.2); CREATININE FOR GFR 1.74 MG/DL (0.55-1.30); MAGNESIUM LEVEL 2.1 MG/DL (1.8-2.4); PERCENT SATURATION 15.4 % (13.2-45.0); POTASSIUM SERUM 3.2 MMOL/L (3.5-5.1); TOTAL PROTEIN 4.4 G/DL (5.7-8.2)
[2024-07-01 05:53] LABS: FOLATE 8.6 NG/ML (>5.4)
[2024-07-01] MEDS: KCL 10MEQ/100ML SWI (KRUN) 10 MEQ in IV 1 EA IV SCH (07:44)
[2024-07-01] MEDS ORDERED: E-Z-PAQUE 96% w/w SUSP 176GM BTL As Ordered ONE (08:46)
[2024-07-01] MEDS ORDERED: GASTROGRAFIN SOLUTION 30ML As Ordered ONE (08:46)
[2024-07-01] MEDS: MULTIVITAMINS/MINERALS THERAP 1 TAB PO SCH (11:10)
[2024-07-01] MEDS: FOLIC ACID 1MG TAB PO SCH (11:10)
[2024-07-01] MEDS: THIAMINE 100 MG TAB PO SCH (11:10)
[2024-07-01] MEDS: APIXABAN 5 MG TAB (ELIQUIS) PO SCH (12:20)
[2024-07-01] MEDS: FLUCONAZOLE 100 MG TAB PO SCH (20:22)
[2024-07-02] VITALS (8 sets, daily range): BP systolic 117–134; BP diastolic 77–91; TEMP 97.5–99; O2SAT 91–98
[2024-07-02 07:51] LABS: BASO % 0.1 % (0.0-1.0); EOS # 0.2 10^3/uL (0.0-0.5); EOS % 2.1 % (0.0-3.0); HEMATOCRIT 24.2 % (36.0-47.0); HEMOGLOBIN 8.3 g/dl (12.0-15.5); LYMPH # 0.7 10^3/uL (1.5-5.0); MEAN CORPUSCULAR HEMOGLOBIN 34.3 pg (27.0-33.0); MEAN CORPUSCULAR HGB CONC 34.3 g/dl (32.0-36.5); MONO # 1.1 10^3/uL (0.0-0.8); MONO % 14.9 % (2.0-8.0); NEUTROPHILS # 5.5 10^3/uL (1.5-8.5); NEUTROPHILS % 73.1 % (36.0-66.0); PLATELET COUNT, AUTOMATED 175 10^3/uL (150-450); RED BLOOD COUNT 2.42 10^6/uL (4.00-5.40); WHITE BLOOD COUNT 7.5 10^3/uL (4.0-10.0)
[2024-07-02 08:26] LABS: ALBUMIN 1.4 G/DL (3.2-5.2); BILIRUBIN,TOTAL 0.5 MG/DL (0.3-1.2); CALCIUM LEVEL 7.7 MG/DL (8.5-10.1); CREATININE FOR GFR 1.67 MG/DL (0.55-1.30); GLOMERULAR FILTRATION RATE 33.5 (>51); MAGNESIUM LEVEL 1.6 MG/DL (1.8-2.4); POTASSIUM SERUM 3.4 MMOL/L (3.5-5.1); TOTAL PROTEIN 4.1 G/DL (5.7-8.2)
[2024-07-02] MEDS: POTASSIUM CHLORIDE 10MEQ SR TABLET PO SCH (10:08)
[2024-07-02] MEDS: MAG SULF 1GM/100ML (MAG RUN) 1 GM in IV 1 EA IV SCH (10:08)
[2024-07-02] MEDS: CEFDINIR 300 MG CAP (OMNICEF) PO SCH (11:41)
[2024-07-02] MEDS: SODIUM CHLORIDE NASAL 0.65% SPRAY BTL (OCEAN) PRN (11:41)
[2024-07-02] MEDS: metroNIDAZOLE (FLAGYL) 500MG TABLET PO SCH (16:44)
[2024-07-02] MEDS: BENZONATATE 100MG CAPSULE PO PRN (23:35)
[2024-07-03] MEDS: PROMETHAZINE 25MG/ML 1ML VIAL IV PRN (01:19)
[2024-07-03 04:00] VITALS: BP 126/80; TEMP 97.7; O2SAT 96
[2024-07-03 09:44] LABS: BASO % 0.1 % (0.0-1.0); EOS # 0.2 10^3/uL (0.0-0.5); EOS % 1.8 % (0.0-3.0); HEMATOCRIT 25.7 % (36.0-47.0); HEMOGLOBIN 8.6 g/dl (12.0-15.5); LYMPH # 1.1 10^3/uL (1.5-5.0); LYMPH % 11.8 % (24.0-44.0); MEAN CORPUSCULAR HEMOGLOBIN 33.5 pg (27.0-33.0); MEAN CORPUSCULAR HGB CONC 33.5 g/dl (32.0-36.5); MONO # 1.1 10^3/uL (0.0-0.8); NEUTROPHILS # 6.6 10^3/uL (1.5-8.5); NEUTROPHILS % 73.1 % (36.0-66.0); PLATELET COUNT, AUTOMATED 195 10^3/uL (150-450); RED BLOOD COUNT 2.57 10^6/uL (4.00-5.40)
[2024-07-03 10:06] LABS: ALBUMIN 1.8 G/DL (3.2-5.2); BILIRUBIN,TOTAL 0.5 MG/DL (0.3-1.2); CALCIUM LEVEL 7.9 MG/DL (8.5-10.1); CREATININE FOR GFR 1.51 MG/DL (0.55-1.30); GLOMERULAR FILTRATION RATE 37.7 (>51); MAGNESIUM LEVEL 1.8 MG/DL (1.8-2.4); POTASSIUM SERUM 3.8 MMOL/L (3.5-5.1); TOTAL PROTEIN 4.6 G/DL (5.7-8.2)
[2024-07-03] MEDS: MAG SULF 1GM/100ML (MAG RUN) 1 GM in IV 1 EA IV ONE (10:49)
[2024-07-03 12:00] VITALS: BP 123/89; TEMP 97.7; O2SAT 96
[2024-07-03 20:00] VITALS: BP 123/89; TEMP 97.7; O2SAT 92
[2024-07-04] VITALS (13 sets, daily range): BP systolic 109–141; BP diastolic 76–99; TEMP 97.5–98.1; O2SAT 96–100
[2024-07-04 02:59] LABS: BASO % 0.2 % (0.0-1.0); EOS # 0.1 10^3/uL (0.0-0.5); EOS % 1.6 % (0.0-3.0); HEMATOCRIT 21.7 % (36.0-47.0); HEMOGLOBIN 7.4 g/dl (12.0-15.5); LYMPH # 1.5 10^3/uL (1.5-5.0); LYMPH % 16.2 % (24.0-44.0); MEAN CORPUSCULAR HEMOGLOBIN 34.3 pg (27.0-33.0); MEAN CORPUSCULAR HGB CONC 34.1 g/dl (32.0-36.5); MEAN CORPUSCULAR VOLUME 100.5 fl (80.0-96.0); MONO % 11.2 % (2.0-8.0); NEUTROPHILS # 6.3 10^3/uL (1.5-8.5); NEUTROPHILS % 69.9 % (36.0-66.0); PLATELET COUNT, AUTOMATED 205 10^3/uL (150-450); RED BLOOD COUNT 2.16 10^6/uL (4.00-5.40)
[2024-07-04 06:58] LABS: BASO % 0.1 % (0.0-1.0); EOS # 0.2 10^3/uL (0.0-0.5); EOS % 1.8 % (0.0-3.0); HEMATOCRIT 21.4 % (36.0-47.0); HEMOGLOBIN 7.1 g/dl (12.0-15.5); LYMPH # 1.2 10^3/uL (1.5-5.0); LYMPH % 12.6 % (24.0-44.0); MEAN CORPUSCULAR HEMOGLOBIN 33.3 pg (27.0-33.0); MEAN CORPUSCULAR HGB CONC 33.2 g/dl (32.0-36.5); MEAN CORPUSCULAR VOLUME 100.5 fl (80.0-96.0); MONO # 1.1 10^3/uL (0.0-0.8); MONO % 11.5 % (2.0-8.0); NEUTROPHILS # 6.8 10^3/uL (1.5-8.5); NEUTROPHILS % 73.5 % (36.0-66.0); PLATELET COUNT, AUTOMATED 202 10^3/uL (150-450); RED BLOOD COUNT 2.13 10^6/uL (4.00-5.40); WHITE BLOOD COUNT 9.2 10^3/uL (4.0-10.0)
[2024-07-04 07:19] LABS: ALBUMIN 1.6 G/DL (3.2-5.2); BILIRUBIN,TOTAL 0.6 MG/DL (0.3-1.2); CALCIUM LEVEL 7.7 MG/DL (8.5-10.1); CREATININE FOR GFR 1.43 MG/DL (0.55-1.30); GLOMERULAR FILTRATION RATE 40.1 (>51); MAGNESIUM LEVEL 1.7 MG/DL (1.8-2.4); POTASSIUM SERUM 3.3 MMOL/L (3.5-5.1); TOTAL PROTEIN 4.1 G/DL (5.7-8.2)
[2024-07-04] MEDS: POTASSIUM CHLORIDE 10MEQ SR TABLET PO ONE (08:59)
[2024-07-04] MEDS: MAG SULF 1GM/100ML (MAG RUN) 1 GM in IV 1 EA IV SCH (08:59)
[2024-07-04 16:16] LABS: HEMATOCRIT 35.2 % (36.0-47.0); MEAN CORPUSCULAR HEMOGLOBIN 32.4 pg (27.0-33.0); MEAN CORPUSCULAR HGB CONC 33.5 g/dl (32.0-36.5); MEAN CORPUSCULAR VOLUME 96.7 fl (80.0-96.0); PLATELET COUNT, AUTOMATED 201 10^3/uL (150-450); RED BLOOD COUNT 3.64 10^6/uL (4.00-5.40); WHITE BLOOD COUNT 10.5 10^3/uL (4.0-10.0)
[2024-07-04 16:17] LABS: HEMOGLOBIN 11.8 g/dl (12.0-15.5)
[2024-07-04 22:22] LABS: HEMATOCRIT 32.7 % (36.0-47.0); HEMOGLOBIN 11.1 g/dl (12.0-15.5)
[2024-07-05] VITALS: BP 118/78; TEMP 97.9; O2SAT 97
[2024-07-05 04:00] VITALS: BP 107/70; TEMP 98.1; O2SAT 97
[2024-07-05 06:35] LABS: BASO % 0.3 % (0.0-1.0); EOS # 0.3 10^3/uL (0.0-0.5); EOS % 2.3 % (0.0-3.0); HEMATOCRIT 29.8 % (36.0-47.0); HEMOGLOBIN 10.2 g/dl (12.0-15.5); LYMPH # 1.6 10^3/uL (1.5-5.0); LYMPH % 14.4 % (24.0-44.0); MEAN CORPUSCULAR HEMOGLOBIN 32.6 pg (27.0-33.0); MEAN CORPUSCULAR HGB CONC 34.2 g/dl (32.0-36.5); MEAN CORPUSCULAR VOLUME 95.2 fl (80.0-96.0); MONO # 1.1 10^3/uL (0.0-0.8); MONO % 9.9 % (2.0-8.0); NEUTROPHILS % 72.4 % (36.0-66.0); PLATELET COUNT, AUTOMATED 189 10^3/uL (150-450); RED BLOOD COUNT 3.13 10^6/uL (4.00-5.40); WHITE BLOOD COUNT 11.1 10^3/uL (4.0-10.0)
[2024-07-05 07:08] LABS: ALBUMIN 1.7 G/DL (3.2-5.2); BILIRUBIN,TOTAL 0.7 MG/DL (0.3-1.2); CALCIUM LEVEL 7.7 MG/DL (8.5-10.1); CREATININE FOR GFR 1.45 MG/DL (0.55-1.30); GLOMERULAR FILTRATION RATE 39.5 (>51); POTASSIUM SERUM 3.9 MMOL/L (3.5-5.1)
[2024-07-05 12:00] VITALS: BP 123/90; TEMP 97.7; O2SAT 98
[2024-07-05] MEDS: FUROSEMIDE 40MG/4ML VIAL IV ONE (13:07)
[2024-07-05 13:34] LABS: HEMOGLOBIN 10.5 g/dl (12.0-15.5)
[2024-07-05 18:45] LABS: HEMATOCRIT 31.3 % (36.0-47.0); HEMOGLOBIN 10.4 g/dl (12.0-15.5)
[2024-07-05 21:39] VITALS: BP 113/76; TEMP 97.5; O2SAT 98
[2024-07-06 01:21] LABS: HEMATOCRIT 26.4 % (36.0-47.0)
[2024-07-06 05:43] VITALS: BP 107/72; TEMP 97.5; O2SAT 96
[2024-07-06 06:30] LABS: BASO % 0.3 % (0.0-1.0); EOS # 0.2 10^3/uL (0.0-0.5); EOS % 2.3 % (0.0-3.0); HEMATOCRIT 28.2 % (36.0-47.0); HEMOGLOBIN 9.7 g/dl (12.0-15.5); LYMPH # 1.7 10^3/uL (1.5-5.0); LYMPH % 17.4 % (24.0-44.0); MEAN CORPUSCULAR HEMOGLOBIN 33.6 pg (27.0-33.0); MEAN CORPUSCULAR HGB CONC 34.4 g/dl (32.0-36.5); MEAN CORPUSCULAR VOLUME 97.6 fl (80.0-96.0); MONO # 0.9 10^3/uL (0.0-0.8); MONO % 9.4 % (2.0-8.0); NEUTROPHILS # 6.9 10^3/uL (1.5-8.5); NEUTROPHILS % 69.9 % (36.0-66.0); PLATELET COUNT, AUTOMATED 240 10^3/uL (150-450); RED BLOOD COUNT 2.89 10^6/uL (4.00-5.40); WHITE BLOOD COUNT 9.9 10^3/uL (4.0-10.0)
[2024-07-06 06:53] LABS: ALBUMIN 1.8 G/DL (3.2-5.2); BILIRUBIN,TOTAL 0.6 MG/DL (0.3-1.2); CALCIUM LEVEL 8.1 MG/DL (8.5-10.1); CREATININE FOR GFR 1.59 MG/DL (0.55-1.30); GLOMERULAR FILTRATION RATE 35.5 (>51); MAGNESIUM LEVEL 1.6 MG/DL (1.8-2.4); POTASSIUM SERUM 3.7 MMOL/L (3.5-5.1); TOTAL PROTEIN 4.3 G/DL (5.7-8.2)
[2024-07-06] MEDS: MAG SULF 1GM/100ML (MAG RUN) 1 GM in IV 1 EA IV SCH (08:28)
[2024-07-06 12:00] VITALS: BP 107/72; TEMP 97.9; O2SAT 98
[2024-07-06 13:26] LABS: HEMATOCRIT 29.2 % (36.0-47.0); HEMOGLOBIN 9.9 g/dl (12.0-15.5)
[2024-07-06 18:51] LABS: HEMOGLOBIN 10.4 g/dl (12.0-15.5)
[2024-07-06 20:30] VITALS: BP 108/71; TEMP 98.1; O2SAT 100
[2024-07-07 00:54] LABS: HEMATOCRIT 27.2 % (36.0-47.0); HEMOGLOBIN 9.1 g/dl (12.0-15.5)
[2024-07-07 04:22] VITALS: BP 109/73; TEMP 97.7; O2SAT 96
[2024-07-07 06:44] LABS: BASO % 0.3 % (0.0-1.0); EOS # 0.1 10^3/uL (0.0-0.5); EOS % 1.3 % (0.0-3.0); HEMATOCRIT 27.5 % (36.0-47.0); HEMOGLOBIN 9.2 g/dl (12.0-15.5); LYMPH # 1.8 10^3/uL (1.5-5.0); LYMPH % 16.7 % (24.0-44.0); MEAN CORPUSCULAR HEMOGLOBIN 32.5 pg (27.0-33.0); MEAN CORPUSCULAR HGB CONC 33.5 g/dl (32.0-36.5); MEAN CORPUSCULAR VOLUME 97.2 fl (80.0-96.0); MONO # 0.9 10^3/uL (0.0-0.8); NEUTROPHILS # 7.5 10^3/uL (1.5-8.5); PLATELET COUNT, AUTOMATED 267 10^3/uL (150-450); RED BLOOD COUNT 2.83 10^6/uL (4.00-5.40); WHITE BLOOD COUNT 10.5 10^3/uL (4.0-10.0)
[2024-07-07 07:17] LABS: CALCIUM LEVEL 7.8 MG/DL (8.5-10.1); CREATININE FOR GFR 1.46 MG/DL (0.55-1.30); GLOMERULAR FILTRATION RATE 39.2 (>51); POTASSIUM SERUM 3.9 MMOL/L (3.5-5.1)
[2024-07-07] MEDS ORDERED: PROT1TAB2 PO (10:28)
[2024-07-07] MEDS ORDERED: SUCR1TAB56 PO (10:28)
== END 2024-07-07 13:10 | disposition home or self-care (01) | DRG 327 ==
LOC: M ED 15:05 → M ED INP 21:25 → M PCU 22:58 → M MSPAV 07-02 18:42
PROVIDERS: ADMIT Family Medicine; ATTEND Internal Medicine
PROC: 8E0W4CZ Robotic Assisted Procedure of Trunk Region, Percutaneous Endoscopic Approach (ICD-10-PCS; 2024-06-29)
PROC: 0DQ64ZZ Repair Stomach, Percutaneous Endoscopic Approach (ICD-10-PCS; principal; 2024-06-29 09:15)
PROC: 30233J1 Transfusion of Nonautologous Serum Albumin into Peripheral Vein, Percutaneous Approach (ICD-10-PCS; 2024-07-02)
PROC: 095KXZZ Destruction of Nasal Mucosa and Soft Tissue, External Approach (ICD-10-PCS; 2024-07-02)
PROC: 2Y41X5Z Packing of Nasal Region using Packing Material (ICD-10-PCS; 2024-07-03)
PROC: 30233N1 Transfusion of Nonautologous Red Blood Cells into Peripheral Vein, Percutaneous Approach (ICD-10-PCS; 2024-07-04)
DX: K25.5 Chronic or unspecified gastric ulcer with perforation (principal); N17.9 Acute kidney failure, unspecified; E87.20 Acidosis, unspecified; D62 Acute posthemorrhagic anemia; K62.5 Hemorrhage of anus and rectum; E03.9 Hypothyroidism, unspecified; I12.9 Hypertensive chronic kidney disease with stage 1 through stage 4 chronic kidney disease, or unspecified chronic kidney disease; K64.8 Other hemorrhoids; E83.42 Hypomagnesemia; D53.9 Nutritional anemia, unspecified; F39 Unspecified mood [affective] disorder; N18.30 Chronic kidney disease, stage 3 unspecified; R04.0 Epistaxis; F10.20 Alcohol dependence, uncomplicated; K70.31 Alcoholic cirrhosis of liver with ascites; M10.9 Gout, unspecified; E83.51 Hypocalcemia; Z87.891 Personal history of nicotine dependence; Z79.890 Hormone replacement therapy; Z86.718 Personal history of other venous thrombosis and embolism; Z79.01 Long term (current) use of anticoagulants; Z79.899 Other long term (current) drug therapy

== ENCOUNTER → 2024-07-28 | Outpatient (CLI) | payer OTHER ==
[~2024-07-28] MED LIST changes: +PROT1TAB2 PO; +SUCR1TAB56 PO
== END ==
LOC: M RAD 07:06
PROVIDERS: ATTEND Internal Medicine Medical Oncology
DX: I81 Portal vein thrombosis (principal)

== ENCOUNTER 2024-09-14 15:18 | Inpatient (IN) | payer OTHER ==
[~2024-09-14] VITALS: Ht 167.6 cm; Wt 62.5 kg
[~2024-09-14 15:18] MED LIST changes: +GABA-1171 PO; +LACT20EL PO; +PANT-23 PO; +POTA-298 PO; +PRED10TA2 PO; +SUCR1TA PO
[2024-09-14 16:27] LABS: BASO % 0.1 % (0.0-1.0); EOS # 0.1 10^3/uL (0.0-0.5); HEMATOCRIT 25.7 % (36.0-47.0); HEMOGLOBIN 8.3 g/dl (12.0-15.5); LYMPH # 1.3 10^3/uL (1.5-5.0); LYMPH % 9.1 % (24.0-44.0); MEAN CORPUSCULAR HEMOGLOBIN 31.9 pg (27.0-33.0); MEAN CORPUSCULAR HGB CONC 32.3 g/dl (32.0-36.5); MEAN CORPUSCULAR VOLUME 98.8 fl (80.0-96.0); MONO # 0.9 10^3/uL (0.0-0.8); MONO % 6.3 % (2.0-8.0); NEUTROPHILS # 11.7 10^3/uL (1.5-8.5); PLATELET COUNT, AUTOMATED 272 10^3/uL (150-450); WHITE BLOOD COUNT 14.2 10^3/uL (4.0-10.0)
[2024-09-14 16:57] LABS: CALCIUM LEVEL 9.5 MG/DL (8.5-10.1); CREATININE FOR GFR 4.13 MG/DL (0.55-1.30); GLOMERULAR FILTRATION RATE 11.8 (>51); POTASSIUM SERUM 5.4 MMOL/L (3.5-5.1)
[2024-09-14] MEDS ORDERED: MOM 30ML SUSPENSION UDC PO PRN (17:25)
[2024-09-14] MEDS ORDERED: ACETAMINOPHEN 325 MG TAB PO PRN (17:25)
[2024-09-14] MEDS ORDERED: MAALOX 30 ML SUSP *UDC PO PRN (17:25)
[2024-09-14 17:56] LABS: PROCALCITONIN 0.43 ng/ml
[2024-09-14 17:57] LABS: ALBUMIN 2.4 G/DL (3.2-5.2); BILIRUBIN,DIRECT 0.3 MG/DL (<0.4); BILIRUBIN,TOTAL 0.4 MG/DL (0.3-1.2); TOTAL PROTEIN 5.9 G/DL (5.7-8.2)
[2024-09-14] MEDS ORDERED: PANT40TA29 PO (18:25)
[2024-09-14] MEDS ORDERED: OMEP-173 PO (18:25)
[2024-09-14] MEDS ORDERED: LORA-622 PO (18:25)
[2024-09-14] MEDS ORDERED: LACT10SO3 PO (18:27)
[2024-09-14] MEDS ORDERED: VITA100T28 PO (18:29)
[2024-09-14] MEDS ORDERED: MIRT-10 PO (18:29)
[2024-09-14] MEDS ORDERED: HOME MED LIST COMPLETE! XX SCH (18:35)
[2024-09-14] MEDS ORDERED: LACTULOSE 20GM/30ML SYRUP UDC PO PRN (18:35)
[2024-09-14] MEDS: cefTRIAXone SOD 1 GM in DEXTROSE 5% (D5W) ADV/MINI-BAG 50 ML IV SCH (19:22)
[2024-09-14] MEDS: SODIUM BICARBONATE 75 MEQ in NS 0.45% 1,000 ML IV SCH (19:52)
[2024-09-14] MEDS ORDERED: OMEPRAZOLE 20MG CAP PO SCH (21:00)
[2024-09-14] MEDS: DOCUSATE SODIUM 100MG CAPSULE PO SCH (21:00)
[2024-09-14 21:32] VITALS: BP 130/82; TEMP 98.3; O2SAT 100
[2024-09-14 22:00] VITALS: PULSE 92
[2024-09-14] MEDS: SUCRALFATE 1 GM TAB PO SCH (22:10)
[2024-09-14] MEDS: PANTOPRAZOLE 40MG TAB (PROTONIX) PO SCH (22:11)
[2024-09-14] MEDS: MIRTAZAPINE 15 MG TAB PO SCH (22:11)
[2024-09-14 22:44] LABS: CALCIUM LEVEL 9.4 MG/DL (8.5-10.1); CREATININE FOR GFR 4.07 MG/DL (0.55-1.30); POTASSIUM SERUM 4.1 MMOL/L (3.5-5.1)
[2024-09-15 04:00] VITALS: BP 138/90; PULSE 92; TEMP 98.1; O2SAT 100
[2024-09-15] MEDS: LEVOTHYROXINE 150MCG TABLET (0.15MG) PO SCH (06:20)
[2024-09-15] MEDS: HEPARIN SOD (PORCINE) 5000UNITS/ML 1ML VIAL/SYRINGE SC SCH (06:20)
[2024-09-15 06:43] LABS: BASO % 0.1 % (0.0-1.0); EOS # 0.3 10^3/uL (0.0-0.5); EOS % 3.6 % (0.0-3.0); HEMATOCRIT 24.3 % (36.0-47.0); HEMOGLOBIN 7.9 g/dl (12.0-15.5); LYMPH # 1.9 10^3/uL (1.5-5.0); LYMPH % 19.9 % (24.0-44.0); MEAN CORPUSCULAR HEMOGLOBIN 31.6 pg (27.0-33.0); MEAN CORPUSCULAR HGB CONC 32.5 g/dl (32.0-36.5); MEAN CORPUSCULAR VOLUME 97.2 fl (80.0-96.0); MONO # 0.9 10^3/uL (0.0-0.8); MONO % 9.8 % (2.0-8.0); PLATELET COUNT, AUTOMATED 257 10^3/uL (150-450); WHITE BLOOD COUNT 9.4 10^3/uL (4.0-10.0)
[2024-09-15 07:02] LABS: ALBUMIN 1.9 G/DL (3.2-5.2); CALCIUM LEVEL 8.9 MG/DL (8.5-10.1); CREATININE FOR GFR 3.82 MG/DL (0.55-1.30); GLOMERULAR FILTRATION RATE 12.9 (>51); MAGNESIUM LEVEL 1.5 MG/DL (1.8-2.4); PHOSPHORUS LEVEL 3.4 MG/DL (2.5-4.9); POTASSIUM SERUM 4.3 MMOL/L (3.5-5.1)
[2024-09-15] MEDS: MULTIVITAMINS/MINERALS THERAP 1 TAB PO SCH (10:16)
[2024-09-15] MEDS: predniSONE 10MG TAB PO SCH (10:17)
[2024-09-15] MEDS: THIAMINE 100 MG TAB PO SCH (10:17)
[2024-09-15] MEDS: VITAMIN D 1,000 INTERNATIONAL UNITS TABLET PO SCH (10:17)
[2024-09-15] MEDS: CALCITRIOL 0.25 MCG CAP (S0169) PO SCH (10:17)
[2024-09-15] MEDS: FOLIC ACID 1MG TAB PO SCH (10:18)
[2024-09-15 11:31] VITALS: BP 124/81; TEMP 97.3; O2SAT 100
[2024-09-15] MEDS: OMEGA-3 1000MG CAPSULE PO SCH (13:48)
[2024-09-15 16:10] VITALS: BP 127/82; TEMP 98.4; O2SAT 99
[2024-09-15 20:23] VITALS: BP 136/72; TEMP 97.1; O2SAT 100
[2024-09-15 23:32] VITALS: BP 130/76; TEMP 97.1; O2SAT 99
[2024-09-16 04:26] VITALS: BP 109/56; TEMP 97; O2SAT 98
[2024-09-16 06:35] LABS: BASO % 0.1 % (0.0-1.0); EOS % 0.1 % (0.0-3.0); HEMATOCRIT 23.9 % (36.0-47.0); LYMPH # 0.8 10^3/uL (1.5-5.0); LYMPH % 9.2 % (24.0-44.0); MEAN CORPUSCULAR HEMOGLOBIN 31.7 pg (27.0-33.0); MEAN CORPUSCULAR HGB CONC 33.5 g/dl (32.0-36.5); MEAN CORPUSCULAR VOLUME 94.8 fl (80.0-96.0); MONO # 0.5 10^3/uL (0.0-0.8); MONO % 6.3 % (2.0-8.0); NEUTROPHILS # 6.8 10^3/uL (1.5-8.5); NEUTROPHILS % 83.1 % (36.0-66.0); PLATELET COUNT, AUTOMATED 254 10^3/uL (150-450); RED BLOOD COUNT 2.52 10^6/uL (4.00-5.40); WHITE BLOOD COUNT 8.2 10^3/uL (4.0-10.0)
[2024-09-16 06:57] LABS: CALCIUM LEVEL 8.3 MG/DL (8.5-10.1); CREATININE FOR GFR 3.33 MG/DL (0.55-1.30); GLOMERULAR FILTRATION RATE 15.1 (>51); MAGNESIUM LEVEL 1.3 MG/DL (1.8-2.4); PHOSPHORUS LEVEL 3.1 MG/DL (2.5-4.9); POTASSIUM SERUM 4.2 MMOL/L (3.5-5.1)
[2024-09-16 08:00] VITALS: BP 140/86; TEMP 97.2; O2SAT 100
[2024-09-16] MEDS: MAG SULF 1GM/100ML (MAG RUN) 1 GM in IV 1 EA IV SCH (08:44)
[2024-09-16 12:00] VITALS: BP 135/90; TEMP 97.2; O2SAT 100
[2024-09-16 16:00] VITALS: BP 126/75; TEMP 97.8; O2SAT 100
[2024-09-16 19:31] VITALS: BP 134/80; TEMP 97.5; O2SAT 100
[2024-09-17 05:14] VITALS: BP 118/68; TEMP 97.3; O2SAT 100
[2024-09-17 06:06] LABS: BASO % 0.1 % (0.0-1.0); EOS # 0.1 10^3/uL (0.0-0.5); EOS % 0.9 % (0.0-3.0); HEMATOCRIT 27.2 % (36.0-47.0); LYMPH # 1.3 10^3/uL (1.5-5.0); MEAN CORPUSCULAR HEMOGLOBIN 31.3 pg (27.0-33.0); MEAN CORPUSCULAR HGB CONC 33.1 g/dl (32.0-36.5); MEAN CORPUSCULAR VOLUME 94.4 fl (80.0-96.0); MONO # 0.9 10^3/uL (0.0-0.8); MONO % 9.9 % (2.0-8.0); NEUTROPHILS # 6.9 10^3/uL (1.5-8.5); NEUTROPHILS % 73.9 % (36.0-66.0); PLATELET COUNT, AUTOMATED 286 10^3/uL (150-450); RED BLOOD COUNT 2.88 10^6/uL (4.00-5.40); WHITE BLOOD COUNT 9.3 10^3/uL (4.0-10.0)
[2024-09-17 06:31] LABS: ALBUMIN 2.4 G/DL (3.2-5.2); CALCIUM LEVEL 9.1 MG/DL (8.5-10.1); CREATININE FOR GFR 3.02 MG/DL (0.55-1.30); GLOMERULAR FILTRATION RATE 16.9 (>51); MAGNESIUM LEVEL 1.9 MG/DL (1.8-2.4); PHOSPHORUS LEVEL 2.8 MG/DL (2.5-4.9); POTASSIUM SERUM 4.2 MMOL/L (3.5-5.1)
[2024-09-17 10:37] VITALS: BP 133/78; TEMP 97.2; O2SAT 100
[2024-09-17 16:00] VITALS: BP 148/90; TEMP 97.5; O2SAT 95
[2024-09-17 19:54] VITALS: BP 137/87; TEMP 97.7; O2SAT 99
[2024-09-17] MEDS: CEFDINIR 300 MG CAP (OMNICEF) PO SCH (20:13)
[2024-09-18 04:14] VITALS: BP 135/86; TEMP 97.5; O2SAT 96
[2024-09-18 06:25] LABS: BASO % 0.1 % (0.0-1.0); EOS % 0.4 % (0.0-3.0); HEMATOCRIT 22.6 % (36.0-47.0); HEMOGLOBIN 7.4 g/dl (12.0-15.5); LYMPH # 1.2 10^3/uL (1.5-5.0); LYMPH % 13.6 % (24.0-44.0); MEAN CORPUSCULAR HEMOGLOBIN 31.1 pg (27.0-33.0); MEAN CORPUSCULAR HGB CONC 32.7 g/dl (32.0-36.5); MONO # 0.9 10^3/uL (0.0-0.8); NEUTROPHILS # 6.8 10^3/uL (1.5-8.5); NEUTROPHILS % 74.6 % (36.0-66.0); PLATELET COUNT, AUTOMATED 239 10^3/uL (150-450); RED BLOOD COUNT 2.38 10^6/uL (4.00-5.40); WHITE BLOOD COUNT 9.1 10^3/uL (4.0-10.0)
[2024-09-18 06:51] LABS: CALCIUM LEVEL 8.8 MG/DL (8.5-10.1); CREATININE FOR GFR 3.12 MG/DL (0.55-1.30); GLOMERULAR FILTRATION RATE 16.3 (>51); MAGNESIUM LEVEL 1.8 MG/DL (1.8-2.4); PHOSPHORUS LEVEL 3.6 MG/DL (2.5-4.9); POTASSIUM SERUM 3.8 MMOL/L (3.5-5.1)
[2024-09-18 13:18] VITALS: BP 156/96; TEMP 97.7; O2SAT 100
[2024-09-18 14:59] VITALS: BP 147/92; TEMP 97.9; O2SAT 99
[2024-09-18 20:12] VITALS: BP 149/83; TEMP 98.2; O2SAT 96
[2024-09-19 04:49] VITALS: BP 132/80; TEMP 97.7; O2SAT 96
[2024-09-19 07:46] LABS: EOS # 0.1 10^3/uL (0.0-0.5); EOS % 0.7 % (0.0-3.0); HEMATOCRIT 23.8 % (36.0-47.0); HEMOGLOBIN 7.7 g/dl (12.0-15.5); LYMPH # 1.4 10^3/uL (1.5-5.0); LYMPH % 12.6 % (24.0-44.0); MEAN CORPUSCULAR HEMOGLOBIN 31.6 pg (27.0-33.0); MEAN CORPUSCULAR HGB CONC 32.4 g/dl (32.0-36.5); MEAN CORPUSCULAR VOLUME 97.5 fl (80.0-96.0); NEUTROPHILS # 8.8 10^3/uL (1.5-8.5); NEUTROPHILS % 76.6 % (36.0-66.0); PLATELET COUNT, AUTOMATED 236 10^3/uL (150-450); RED BLOOD COUNT 2.44 10^6/uL (4.00-5.40); WHITE BLOOD COUNT 11.4 10^3/uL (4.0-10.0)
[2024-09-19 08:05] LABS: ALBUMIN 2.4 G/DL (3.2-5.2); CALCIUM LEVEL 9.4 MG/DL (8.5-10.1); CREATININE FOR GFR 2.62 MG/DL (0.55-1.30); GLOMERULAR FILTRATION RATE 19.9 (>51); MAGNESIUM LEVEL 1.5 MG/DL (1.8-2.4); PHOSPHORUS LEVEL 3.2 MG/DL (2.5-4.9); POTASSIUM SERUM 3.1 MMOL/L (3.5-5.1)
[2024-09-19] MEDS: MAG SULF 1GM/100ML (MAG RUN) 1 GM in IV 1 EA IV SCH (09:26)
[2024-09-19] MEDS ORDERED: POTA-298 PO (11:00)
[2024-09-19] MEDS ORDERED: MAGN500T2 PO (11:00)
[2024-09-19] MEDS ORDERED: CEFD1CAP9 PO (11:19)
[2024-09-19] MEDS: POTASSIUM CHLORIDE 10MEQ SR TABLET PO ONE (11:21)
[2024-09-19 12:00] VITALS: BP 151/98; TEMP 97.7; O2SAT 97
[2024-09-20] MEDS ORDERED: predniSONE 20 MG TAB PO SCH (09:00)
[2024-09-24] MEDS ORDERED: predniSONE 10MG TAB PO SCH (09:00)
[2024-09-27] MEDS ORDERED: predniSONE 20 MG TAB PO SCH (09:00)
[2024-09-30] MEDS ORDERED: predniSONE 10MG TAB PO SCH (09:00)
== END 2024-09-19 13:45 | disposition home or self-care (01) | DRG 683 ==
LOC: M ED 15:18 → M ED INP 17:22 → M PCU 21:15 → M MS5PR 09-17 15:53
PROVIDERS: ADMIT Internal Medicine; ATTEND Internal Medicine
PROC: 30233J1 Transfusion of Nonautologous Serum Albumin into Peripheral Vein, Percutaneous Approach (ICD-10-PCS; principal; 2024-09-18)
DX: N17.9 Acute kidney failure, unspecified (principal); E87.20 Acidosis, unspecified; N39.0 Urinary tract infection, site not specified; K70.31 Alcoholic cirrhosis of liver with ascites; E03.9 Hypothyroidism, unspecified; M10.9 Gout, unspecified; D50.0 Iron deficiency anemia secondary to blood loss (chronic); N18.9 Chronic kidney disease, unspecified; E78.5 Hyperlipidemia, unspecified; G62.9 Polyneuropathy, unspecified; D73.1 Hypersplenism; E87.5 Hyperkalemia; B96.20 Unspecified Escherichia coli [E. coli] as the cause of diseases classified elsewhere; F39 Unspecified mood [affective] disorder; Z79.890 Hormone replacement therapy; Z79.899 Other long term (current) drug therapy; Z87.891 Personal history of nicotine dependence

== ENCOUNTER 2024-09-21 14:37 | Inpatient (IN) | payer OTHER ==
[~2024-09-21] VITALS: Ht 167.6 cm; Wt 59.8 kg
[~2024-09-21 14:37] MED LIST changes: +CEFD1CAP9 PO; +LACT10SO94 PO; +LORA-622 PO; +MAGN500T2 PO; +MIRT-10 PO; +OMEP-173 PO; +PANT40TA29 PO; +VITA100T28 PO
[2024-09-21] MEDS: IPRATROPIUM 0.5MG/ALBUTEROL 2.5MG INH SOL UD 3ML (DUONEB) NEB ONE (15:10)
[2024-09-21 15:35] LABS: BASO % 0.1 % (0.0-1.0); HEMATOCRIT 29.9 % (36.0-47.0); HEMOGLOBIN 9.3 g/dl (12.0-15.5); LYMPH # 0.4 10^3/uL (1.5-5.0); LYMPH % 1.8 % (24.0-44.0); MEAN CORPUSCULAR HEMOGLOBIN 32.4 pg (27.0-33.0); MEAN CORPUSCULAR HGB CONC 31.1 g/dl (32.0-36.5); MEAN CORPUSCULAR VOLUME 104.2 fl (80.0-96.0); MONO % 4.6 % (2.0-8.0); NEUTROPHILS # 19.6 10^3/uL (1.5-8.5); NEUTROPHILS % 92.5 % (36.0-66.0); PLATELET COUNT, AUTOMATED 281 10^3/uL (150-450); RED BLOOD COUNT 2.87 10^6/uL (4.00-5.40); WHITE BLOOD COUNT 21.2 10^3/uL (4.0-10.0)
[2024-09-21 15:37] LABS: ABG BASE EXCESS -9.4 (-2.0-2.0); ABG HCO3 16.9 MMOL/L (22.0-26.0); ABG O2 SATURATION 99.4 % (95.0-99.0); ABG PARTIAL PRESSURE CO2 38.6 mmHg (35.0-45.0); ABG PARTIAL PRESSURE O2 244.1 mmHg (75.0-100.0); ABG STANDARD HCO3 16.8 MMOL/L. (22.0-26.0); ABG TOTAL CO2 18.1 MMOL/L (22.0-29.0); ABG pH (ARTERIAL) 7.259 UNITS (7.350-7.450)
[2024-09-21 17:01] LABS: CK-MB VALUE MASS 3.8 NG/ML (<3.6)
[2024-09-21 17:04] LABS: THYROXINE (T4) 4.9 UG/DL (4.5-10.9)
[2024-09-21 17:05] LABS: THYROID STIMULATING HORMONE 8.318 uIU/ML (0.55-4.78)
[2024-09-21] MEDS: LevoFLOXacin IV 750 MG in IV 1 EA IV ONE (17:05)
[2024-09-21] MEDS: CEFEPIME HCL 2 GM in DEXTROSE 5% (D5W) ADV/MINI-BAG 50 ML IV ONE (17:05)
[2024-09-21 17:07] LABS: ETHYL ALCOHOL (ETHANOL) < 0.003 % (0.000-0.010)
[2024-09-21 17:09] LABS: PROCALCITONIN 0.25 ng/ml; SALICYLATE LEVEL < 3.0 MG/DL (<30)
[2024-09-21 17:13] LABS: ALBUMIN 2.6 G/DL (3.2-5.2); ALKALINE PHOSPHATASE 107 U/L (35-104); ALT/SGPT 28 U/L (7.0-40); AST/SGOT 30 U/L (<34); BILIRUBIN,DIRECT 0.2 MG/DL (<0.4); BILIRUBIN,TOTAL 0.4 MG/DL (0.3-1.2); BLOOD UREA NITROGEN 49 MG/DL (9-23); CALCIUM LEVEL 9.2 MG/DL (8.5-10.1); CARBON DIOXIDE LEVEL 14 MMOL/L (20-31); CHLORIDE LEVEL 124 MMOL/L (98-107); CPK CREATINE PHOSPHOKINASE 54 U/L (34-145); CREATININE FOR GFR 2.12 MG/DL (0.55-1.30); GLOMERULAR FILTRATION RATE 25.4 (>51); GLUCOSE, FASTING 107 MG/DL (60-100); MAGNESIUM LEVEL 1.8 MG/DL (1.8-2.4); MB/CK RELATIVE INDEX 7.03 (< OR =4); POTASSIUM SERUM 5.1 MMOL/L (3.5-5.1); SODIUM LEVEL 150 MMOL/L (136-145)
[2024-09-21] MEDS: NS 1,000 ML IV ONE ×2 (17:25→21:56)
[2024-09-21 18:03] LABS: CK-MB VALUE MASS 3.6 NG/ML (<3.6)
[2024-09-21 18:12] LABS: MB/CK RELATIVE INDEX 7.65 (< OR =4)
[2024-09-21] MEDS ORDERED: POTA-151 PO (18:39)
[2024-09-21] MEDS ORDERED: PRED10TA2 PO (18:39)
[2024-09-21] MEDS ORDERED: GABA-1171 PO (18:39)
[2024-09-21] MEDS ORDERED: CALC1CAP31 PO (18:39)
[2024-09-21] MEDS ORDERED: CEFD1CAP9 PO (18:39)
[2024-09-21] MEDS ORDERED: HOME MED LIST COMPLETE! XX SCH (18:40)
[2024-09-21] MEDS: LIDOCAINE 2% 5ML JELLY UROJET TOP ONE (18:57)
[2024-09-21] MEDS: FUROSEMIDE 40MG/4ML VIAL IV ONE (18:57)
[2024-09-21 19:00] LABS: ABG BASE EXCESS -12.5 (-2.0-2.0); ABG HCO3 15.2 MMOL/L (22.0-26.0); ABG O2 SATURATION 93.4 % (95.0-99.0); ABG PARTIAL PRESSURE CO2 42.7 mmHg (35.0-45.0); ABG PARTIAL PRESSURE O2 80.8 mmHg (75.0-100.0); ABG STANDARD HCO3 14.5 MMOL/L. (22.0-26.0); ABG TOTAL CO2 16.5 MMOL/L (22.0-29.0)
[2024-09-21 20:02] LABS: CK-MB VALUE MASS 3.8 NG/ML (<3.6)
[2024-09-21 20:05] LABS: MB/CK RELATIVE INDEX 7.6 (< OR =4)
[2024-09-21] MEDS: SODIUM BICARBONATE 8.4% INJ 50ML SYRINGE IV STA (21:14)
[2024-09-21 22:35] LABS: ABG BASE EXCESS -2.1 (-2.0-2.0); ABG HCO3 22.4 MMOL/L (22.0-26.0); ABG O2 SATURATION 94.9 % (95.0-99.0); ABG PARTIAL PRESSURE O2 71.8 mmHg (75.0-100.0); ABG STANDARD HCO3 22.7 MMOL/L. (22.0-26.0); ABG TOTAL CO2 23.5 MMOL/L (22.0-29.0)
[2024-09-22] VITALS (15 sets, daily range): BP systolic 100–155; BP diastolic 59–96; TEMP 98.3–100; O2SAT 88–97
[2024-09-22] MEDS ORDERED: MAALOX 30 ML SUSP *UDC PO PRN (00:50)
[2024-09-22] MEDS ORDERED: MOM 30ML SUSPENSION UDC PO PRN (00:50)
[2024-09-22] MEDS: VANCOMYCIN 1,250 MG/250 ML IV BAG *LOAD IV ONE (02:31)
[2024-09-22 05:09] LABS: BASO % 0.1 % (0.0-1.0); EOS # 0.1 10^3/uL (0.0-0.5); EOS % 0.4 % (0.0-3.0); HEMATOCRIT 25.9 % (36.0-47.0); HEMOGLOBIN 8.2 g/dl (12.0-15.5); LYMPH # 0.9 10^3/uL (1.5-5.0); LYMPH % 4.6 % (24.0-44.0); MEAN CORPUSCULAR HEMOGLOBIN 31.5 pg (27.0-33.0); MEAN CORPUSCULAR HGB CONC 31.7 g/dl (32.0-36.5); MEAN CORPUSCULAR VOLUME 99.6 fl (80.0-96.0); MONO # 0.9 10^3/uL (0.0-0.8); MONO % 4.4 % (2.0-8.0); NEUTROPHILS # 18.4 10^3/uL (1.5-8.5); NEUTROPHILS % 89.8 % (36.0-66.0); PLATELET COUNT, AUTOMATED 226 10^3/uL (150-450); WHITE BLOOD COUNT 20.5 10^3/uL (4.0-10.0)
[2024-09-22] MEDS: LEVOTHYROXINE 150MCG TABLET (0.15MG) PO SCH (05:32)
[2024-09-22 05:44] LABS: CALCIUM LEVEL 8.8 MG/DL (8.5-10.1); CREATININE FOR GFR 2.04 MG/DL (0.55-1.30); GLOMERULAR FILTRATION RATE 26.5 (>51); MAGNESIUM LEVEL 1.5 MG/DL (1.8-2.4)
[2024-09-22] MEDS ORDERED: MAG SULF 1GM/100ML (MAG RUN) 1 GM in IV 1 EA IV SCH (06:20)
[2024-09-22] MEDS: D5W 1,000 ML IV SCH (06:25)
[2024-09-22] MEDS: MAG SULF 1GM/100ML (MAG RUN) 1 GM in IV 1 EA IV SCH (06:47)
[2024-09-22] MEDS: HEPARIN SOD (PORCINE) 5000UNITS/ML 1ML VIAL/SYRINGE SC SCH (08:33)
[2024-09-22] MEDS: VANCOMYCIN 125MG CAPSULE PO SCH (08:33)
[2024-09-22] MEDS: GABAPENTIN 100 MG CAP PO SCH (08:34)
[2024-09-22] MEDS: CALCITRIOL 0.25 MCG CAP (S0169) PO SCH (08:34)
[2024-09-22] MEDS: FOLIC ACID 1MG TAB PO SCH (08:34)
[2024-09-22] MEDS: OMEPRAZOLE 20MG CAP PO SCH (08:34)
[2024-09-22] MEDS: THIAMINE 100 MG TAB PO SCH (08:34)
[2024-09-22] MEDS: predniSONE 10MG TAB PO SCH (08:35)
[2024-09-22] MEDS: SUCRALFATE 1 GM TAB PO SCH (08:35)
[2024-09-22] MEDS: METOPROLOL TART 12.5 MG PER 1/2 TAB PO SCH (08:53)
[2024-09-22] MEDS: FUROSEMIDE 100MG/10ML VIAL IV ONE ×2 (08:54→19:54)
[2024-09-22] MEDS ORDERED: CEFEPIME HCL 2 GM in DEXTROSE 5% (D5W) ADV/MINI-BAG 50 ML IV SCH (09:00)
[2024-09-22] MEDS: CEFEPIME HCL 1 GM in DEXTROSE 5% (D5W) ADV/MINI-BAG 50 ML IV SCH (16:24)
[2024-09-22 18:17] LABS: CALCIUM LEVEL 8.6 MG/DL (8.5-10.1); CREATININE FOR GFR 2.03 MG/DL (0.55-1.30); GLOMERULAR FILTRATION RATE 26.7 (>51); MAGNESIUM LEVEL 1.9 MG/DL (1.8-2.4)
[2024-09-22] MEDS: MAG SULF 1GM/100ML (MAG RUN) 1 GM in IV 1 EA IV ONE (20:06)
[2024-09-22] MEDS: AZITHROMYCIN 250MG TABLET PO SCH (20:14)
[2024-09-22] MEDS: MIRTAZAPINE 15 MG TAB PO SCH (20:15)
[2024-09-22] MEDS ORDERED: VANCOMYCIN 1,000MG/200 ML IV BAG IV SCH (21:00)
[2024-09-23] VITALS (11 sets, daily range): BP systolic 98–124; BP diastolic 58–81; TEMP 98.3–99; O2SAT 89–98
[2024-09-23 04:29] LABS: BASO % 0.1 % (0.0-1.0); EOS # 0.1 10^3/uL (0.0-0.5); EOS % 0.5 % (0.0-3.0); HEMATOCRIT 22.1 % (36.0-47.0); HEMOGLOBIN 7.1 g/dl (12.0-15.5); LYMPH # 0.8 10^3/uL (1.5-5.0); LYMPH % 4.6 % (24.0-44.0); MEAN CORPUSCULAR HEMOGLOBIN 31.8 pg (27.0-33.0); MEAN CORPUSCULAR HGB CONC 32.1 g/dl (32.0-36.5); MEAN CORPUSCULAR VOLUME 99.1 fl (80.0-96.0); MONO # 0.8 10^3/uL (0.0-0.8); MONO % 4.3 % (2.0-8.0); NEUTROPHILS # 15.8 10^3/uL (1.5-8.5); NEUTROPHILS % 90.1 % (36.0-66.0); PLATELET COUNT, AUTOMATED 167 10^3/uL (150-450); RED BLOOD COUNT 2.23 10^6/uL (4.00-5.40); WHITE BLOOD COUNT 17.6 10^3/uL (4.0-10.0)
[2024-09-23 05:31] LABS: ALBUMIN 1.7 G/DL (3.2-5.2); BILIRUBIN,TOTAL 0.4 MG/DL (0.3-1.2); CALCIUM LEVEL 8.6 MG/DL (8.5-10.1); CREATININE FOR GFR 2.29 MG/DL (0.55-1.30); GLOMERULAR FILTRATION RATE 23.2 (>51); MAGNESIUM LEVEL 2.1 MG/DL (1.8-2.4); PHOSPHORUS LEVEL 3.2 MG/DL (2.5-4.9); POTASSIUM SERUM 3.6 MMOL/L (3.5-5.1); TOTAL PROTEIN 4.6 G/DL (5.7-8.2)
[2024-09-23] MEDS: FUROSEMIDE 100MG/10ML VIAL IV ONE ×2 (12:19→16:33)
[2024-09-23] MEDS: MAG SULF 1GM/100ML (MAG RUN) 1 GM in IV 1 EA IV ONE (12:19)
[2024-09-23] MEDS ORDERED: LACTULOSE 20GM/30ML SYRUP UDC PO PRN (15:15)
[2024-09-23] MEDS: PANTOPRAZOLE 40MG TAB (PROTONIX) PO SCH (20:41)
[2024-09-23] MEDS ORDERED: OMEPRAZOLE 20MG CAP PO SCH (21:00)
[2024-09-24] VITALS (12 sets, daily range): BP systolic 94–145; BP diastolic 55–85; TEMP 97.2–99.6; O2SAT 73–100
[2024-09-24] MEDS: SODIUM CHLORIDE 0.9% INJ 10 ML SYR IV SCH (09:05)
[2024-09-24] MEDS: FUROSEMIDE injection 100 MG, VIAL 2 BAG 13MM ADAPTER 1 EACH in D5W 100 ML IV SCH (09:05)
[2024-09-24 09:13] LABS: BASO % 0.1 % (0.0-1.0); EOS # 0.1 10^3/uL (0.0-0.5); EOS % 0.4 % (0.0-3.0); HEMATOCRIT 23.7 % (36.0-47.0); HEMOGLOBIN 7.2 g/dl (12.0-15.5); LYMPH # 0.6 10^3/uL (1.5-5.0); LYMPH % 3.8 % (24.0-44.0); MEAN CORPUSCULAR HEMOGLOBIN 31.7 pg (27.0-33.0); MEAN CORPUSCULAR HGB CONC 30.4 g/dl (32.0-36.5); MEAN CORPUSCULAR VOLUME 104.4 fl (80.0-96.0); MONO # 0.7 10^3/uL (0.0-0.8); NEUTROPHILS # 15.2 10^3/uL (1.5-8.5); NEUTROPHILS % 91.1 % (36.0-66.0); PLATELET COUNT, AUTOMATED 172 10^3/uL (150-450); RED BLOOD COUNT 2.27 10^6/uL (4.00-5.40); WHITE BLOOD COUNT 16.7 10^3/uL (4.0-10.0)
[2024-09-24 09:35] LABS: ALBUMIN 1.9 G/DL (3.2-5.2); BILIRUBIN,TOTAL 0.5 MG/DL (0.3-1.2); CALCIUM LEVEL 8.5 MG/DL (8.5-10.1); CREATININE FOR GFR 2.37 MG/DL (0.55-1.30); GLOMERULAR FILTRATION RATE 22.3 (>51); MAGNESIUM LEVEL 2.1 MG/DL (1.8-2.4); POTASSIUM SERUM 3.3 MMOL/L (3.5-5.1); TOTAL PROTEIN 5.3 G/DL (5.7-8.2)
[2024-09-24] MEDS: LACTOBACILLUS ACIDOPHILUS CAP (BACID) PO SCH (10:55)
[2024-09-24] MEDS: POTASSIUM CHLORIDE 10MEQ SR TABLET PO ONE (12:19)
[2024-09-24] MEDS: KCL 20MEQ IN 100ML SWI (KRUN) 20 MEQ in IV 1 EA IV ONE (12:19)
[2024-09-25] VITALS (22 sets, daily range): BP systolic 112–155; BP diastolic 58–93; TEMP 97–101.4; O2SAT 89–97
[2024-09-25 05:36] LABS: BASO % 0.1 % (0.0-1.0); EOS # 0.1 10^3/uL (0.0-0.5); EOS % 0.9 % (0.0-3.0); HEMATOCRIT 21.7 % (36.0-47.0); LYMPH # 0.9 10^3/uL (1.5-5.0); LYMPH % 6.6 % (24.0-44.0); MEAN CORPUSCULAR HEMOGLOBIN 32.1 pg (27.0-33.0); MEAN CORPUSCULAR HGB CONC 31.3 g/dl (32.0-36.5); MEAN CORPUSCULAR VOLUME 102.4 fl (80.0-96.0); MONO # 0.9 10^3/uL (0.0-0.8); MONO % 6.5 % (2.0-8.0); NEUTROPHILS # 11.3 10^3/uL (1.5-8.5); NEUTROPHILS % 85.3 % (36.0-66.0); PLATELET COUNT, AUTOMATED 176 10^3/uL (150-450); RED BLOOD COUNT 2.12 10^6/uL (4.00-5.40); WHITE BLOOD COUNT 13.3 10^3/uL (4.0-10.0)
[2024-09-25 05:41] LABS: HEMOGLOBIN 6.8 g/dl (12.0-15.5)
[2024-09-25 06:10] LABS: ALBUMIN 1.9 G/DL (3.2-5.2); BILIRUBIN,TOTAL 0.4 MG/DL (0.3-1.2); CALCIUM LEVEL 8.8 MG/DL (8.5-10.1); CREATININE FOR GFR 2.31 MG/DL (0.55-1.30); MAGNESIUM LEVEL 1.8 MG/DL (1.8-2.4); POTASSIUM SERUM 3.9 MMOL/L (3.5-5.1); TOTAL PROTEIN 5.1 G/DL (5.7-8.2)
[2024-09-25 06:11] LABS: ALBUMIN 1.9 G/DL (3.2-5.2); CALCIUM LEVEL 8.5 MG/DL (8.5-10.1); CREATININE FOR GFR 2.32 MG/DL (0.55-1.30); GLOMERULAR FILTRATION RATE 22.9 (>51); PHOSPHORUS LEVEL 3.9 MG/DL (2.5-4.9); POTASSIUM SERUM 3.9 MMOL/L (3.5-5.1)
[2024-09-25 06:36] LABS: HEMATOCRIT 21.3 % (36.0-47.0)
[2024-09-25 06:40] LABS: HEMOGLOBIN 6.6 g/dl (12.0-15.5)
[2024-09-25 15:38] LABS: HEMATOCRIT 23.3 % (36.0-47.0); HEMOGLOBIN 7.4 g/dl (12.0-15.5)
[2024-09-25 16:32] LABS: URINE STREP PNEUMONIAE ANTIGEN NOT DETECTED (NOT DETECT)
[2024-09-25] MEDS: POTASSIUM CHLORIDE 10MEQ SR TABLET PO ONE (17:56)
[2024-09-25] MEDS: ACETAMINOPHEN *IV* 1,000 MG in IV 1 EA IV ONE (20:33)
[2024-09-25 20:54] LABS: APPEARANCE, URINE MANUAL HAZY (CLEAR); COLOR, URINE MANUAL LT YELLOW (YELLOW)
[2024-09-25 20:55] LABS: BILIRUBIN, URINE MANUAL NEGATIVE (NEGATIVE); GLUCOSE, URINE (UA) MANUAL NEGATIVE (NEGATIVE); KETONE, URINE MANUAL NEGATIVE (NEGATIVE); LEUKOCYTE ESTERASE, URINE MAN NEGATIVE (NEGATIVE); NITRITE, URINE MANUAL NEGATIVE (NEGATIVE); PROTEIN, URINE MANUAL NEGATIVE (NEGATIVE); SPECIFIC GRAVITY,URINE MANUAL 1.015 (1.002-1.035); UROBILINOGEN, URINE MANUAL NORMAL (NORMAL)
[2024-09-25 20:56] LABS: BLOOD URINE MANUAL POSITIVE (NEGATIVE)
[2024-09-25 20:59] LABS: SQUAMOUS EPITHELIAL CELL URINE NONE SEEN /hpf (SMALL AMT); WBC, URINE 0-1 /hpf (0-3)
[2024-09-25 21:00] LABS: BACTERIA, URINE NONE SEEN; HYALINE CAST, URINE NONE SEEN /lpf (0-1)
[2024-09-26] VITALS (15 sets, daily range): BP systolic 119–129; BP diastolic 72–81; TEMP 98.4–101.9; O2SAT 83–96
[2024-09-26 05:41] LABS: BASO % 0.1 % (0.0-1.0); EOS # 0.1 10^3/uL (0.0-0.5); HEMATOCRIT 25.2 % (36.0-47.0); HEMOGLOBIN 8.4 g/dl (12.0-15.5); LYMPH # 1.1 10^3/uL (1.5-5.0); LYMPH % 8.6 % (24.0-44.0); MEAN CORPUSCULAR HEMOGLOBIN 31.5 pg (27.0-33.0); MEAN CORPUSCULAR HGB CONC 33.3 g/dl (32.0-36.5); MEAN CORPUSCULAR VOLUME 94.4 fl (80.0-96.0); MONO # 1.4 10^3/uL (0.0-0.8); MONO % 11.3 % (2.0-8.0); NEUTROPHILS # 9.6 10^3/uL (1.5-8.5); NEUTROPHILS % 77.1 % (36.0-66.0); PLATELET COUNT, AUTOMATED 178 10^3/uL (150-450); RED BLOOD COUNT 2.67 10^6/uL (4.00-5.40); WHITE BLOOD COUNT 12.5 10^3/uL (4.0-10.0)
[2024-09-26 06:26] LABS: BILIRUBIN,TOTAL 0.5 MG/DL (0.3-1.2); CALCIUM LEVEL 8.8 MG/DL (8.5-10.1); CREATININE FOR GFR 2.27 MG/DL (0.55-1.30); GLOMERULAR FILTRATION RATE 23.5 (>51); MAGNESIUM LEVEL 1.5 MG/DL (1.8-2.4); POTASSIUM SERUM 4.3 MMOL/L (3.5-5.1); TOTAL PROTEIN 5.3 G/DL (5.7-8.2)
[2024-09-26] MEDS: MAG SULF 1GM/100ML (MAG RUN) 1 GM in IV 1 EA IV SCH (08:54)
[2024-09-26] MEDS ORDERED: MAG SULF 1GM/100ML (MAG RUN) 1 GM in IV 1 EA IV SCH (10:05)
[2024-09-26 10:37] LABS: PROCALCITONIN 5.05 ng/ml
[2024-09-26] MEDS ORDERED: CEFTAROLINE FOSAMIL 600 MG in DEXTROSE 5% (D5W) ADV/MINI-BAG 50 ML IV SCH (18:35)
[2024-09-26] MEDS: ACETAMINOPHEN 325 MG TAB PO PRN (20:21)
[2024-09-26] MEDS: METOPROLOL TART 25 MG TABLET PO SCH (20:22)
[2024-09-26] MEDS: CEFTAROLINE FOSAMIL 300 MG in D5W 50 ML IV SCH (21:05)
[2024-09-27] VITALS (8 sets, daily range): BP systolic 121–130; BP diastolic 77–89; TEMP 97.8–102.2; O2SAT 91–98
[2024-09-27 00:13] LABS: MYCOPLASMA PNEUMONIAE IGG 1.39 (<=0.90)
[2024-09-27 05:20] LABS: BASO % 0.2 % (0.0-1.0); EOS # 0.2 10^3/uL (0.0-0.5); EOS % 1.6 % (0.0-3.0); HEMATOCRIT 24.8 % (36.0-47.0); LYMPH % 7.6 % (24.0-44.0); MEAN CORPUSCULAR HEMOGLOBIN 31.1 pg (27.0-33.0); MEAN CORPUSCULAR HGB CONC 32.3 g/dl (32.0-36.5); MEAN CORPUSCULAR VOLUME 96.5 fl (80.0-96.0); MONO # 1.4 10^3/uL (0.0-0.8); MONO % 11.1 % (2.0-8.0); NEUTROPHILS # 9.7 10^3/uL (1.5-8.5); NEUTROPHILS % 75.5 % (36.0-66.0); PLATELET COUNT, AUTOMATED 187 10^3/uL (150-450); RED BLOOD COUNT 2.57 10^6/uL (4.00-5.40); WHITE BLOOD COUNT 12.8 10^3/uL (4.0-10.0)
[2024-09-27 05:41] LABS: ALBUMIN 1.8 G/DL (3.2-5.2); BILIRUBIN,TOTAL 0.5 MG/DL (0.3-1.2); CALCIUM LEVEL 8.8 MG/DL (8.5-10.1); CREATININE FOR GFR 2.1 MG/DL (0.55-1.30); GLOMERULAR FILTRATION RATE 25.7 (>51); MAGNESIUM LEVEL 1.9 MG/DL (1.8-2.4); POTASSIUM SERUM 4.1 MMOL/L (3.5-5.1)
[2024-09-27] MEDS ORDERED: AZITHROMYCIN 250MG TABLET PO SCH (09:00)
[2024-09-27] MEDS: DOXYCYCLINE HYCLATE 100MG TABLET PO SCH (09:20)
[2024-09-28] VITALS (11 sets, daily range): BP systolic 110–135; BP diastolic 72–80; TEMP 97.4–102.8; O2SAT 90–100
[2024-09-28 05:33] LABS: BASO % 0.2 % (0.0-1.0); EOS # 0.2 10^3/uL (0.0-0.5); EOS % 1.8 % (0.0-3.0); HEMATOCRIT 24.5 % (36.0-47.0); HEMOGLOBIN 7.7 g/dl (12.0-15.5); LYMPH # 0.9 10^3/uL (1.5-5.0); LYMPH % 7.8 % (24.0-44.0); MEAN CORPUSCULAR HEMOGLOBIN 30.6 pg (27.0-33.0); MEAN CORPUSCULAR HGB CONC 31.4 g/dl (32.0-36.5); MEAN CORPUSCULAR VOLUME 97.2 fl (80.0-96.0); MONO # 1.3 10^3/uL (0.0-0.8); MONO % 11.4 % (2.0-8.0); NEUTROPHILS # 8.7 10^3/uL (1.5-8.5); NEUTROPHILS % 74.8 % (36.0-66.0); PLATELET COUNT, AUTOMATED 209 10^3/uL (150-450); RED BLOOD COUNT 2.52 10^6/uL (4.00-5.40); WHITE BLOOD COUNT 11.6 10^3/uL (4.0-10.0)
[2024-09-28 06:12] LABS: ALBUMIN 1.8 G/DL (3.2-5.2); BILIRUBIN,TOTAL 0.5 MG/DL (0.3-1.2); CALCIUM LEVEL 8.8 MG/DL (8.5-10.1); CREATININE FOR GFR 1.95 MG/DL (0.55-1.30); MAGNESIUM LEVEL 1.8 MG/DL (1.8-2.4); TOTAL PROTEIN 4.9 G/DL (5.7-8.2)
[2024-09-28] MEDS ORDERED: fentaNYL 100 MCG/2 ML INJECTION IV STA (16:04)
[2024-09-28] MEDS ORDERED: MIDAZOLAM INJ 2MG/2ML VIAL As Ordered ONE (16:04)
[2024-09-28] MEDS ORDERED: MIDAZOLAM INJ 2MG/2ML VIAL IV STA (16:04)
[2024-09-29] VITALS (15 sets, daily range): BP systolic 115–137; BP diastolic 74–83; TEMP 97.6–101.2; O2SAT 89–96
[2024-09-29 05:04] LABS: BASO % 0.2 % (0.0-1.0); EOS # 0.2 10^3/uL (0.0-0.5); EOS % 1.7 % (0.0-3.0); HEMATOCRIT 24.2 % (36.0-47.0); HEMOGLOBIN 7.4 g/dl (12.0-15.5); LYMPH # 1.1 10^3/uL (1.5-5.0); MEAN CORPUSCULAR HEMOGLOBIN 30.5 pg (27.0-33.0); MEAN CORPUSCULAR HGB CONC 30.6 g/dl (32.0-36.5); MEAN CORPUSCULAR VOLUME 99.6 fl (80.0-96.0); MONO # 1.3 10^3/uL (0.0-0.8); MONO % 12.6 % (2.0-8.0); NEUTROPHILS # 7.6 10^3/uL (1.5-8.5); NEUTROPHILS % 71.4 % (36.0-66.0); PLATELET COUNT, AUTOMATED 258 10^3/uL (150-450); RED BLOOD COUNT 2.43 10^6/uL (4.00-5.40); WHITE BLOOD COUNT 10.7 10^3/uL (4.0-10.0)
[2024-09-29 05:25] LABS: ALBUMIN 1.9 G/DL (3.2-5.2); BILIRUBIN,TOTAL 0.4 MG/DL (0.3-1.2); CALCIUM LEVEL 8.7 MG/DL (8.5-10.1); CREATININE FOR GFR 1.85 MG/DL (0.55-1.30); GLOMERULAR FILTRATION RATE 29.7 (>51); MAGNESIUM LEVEL 1.6 MG/DL (1.8-2.4); POTASSIUM SERUM 4.8 MMOL/L (3.5-5.1); TOTAL PROTEIN 5.1 G/DL (5.7-8.2)
[2024-09-29] MEDS: MAG SULF 1GM/100ML (MAG RUN) 1 GM in IV 1 EA IV SCH (06:26)
[2024-09-29 21:17] LABS: PROCALCITONIN 1.24 ng/ml
[2024-09-30] VITALS (10 sets, daily range): BP systolic 108–143; BP diastolic 52–95; TEMP 97.9–99.5; O2SAT 83–97
[2024-09-30 05:48] LABS: BASO % 0.3 % (0.0-1.0); EOS # 0.2 10^3/uL (0.0-0.5); EOS % 1.9 % (0.0-3.0); HEMATOCRIT 22.9 % (36.0-47.0); LYMPH # 1.2 10^3/uL (1.5-5.0); LYMPH % 12.7 % (24.0-44.0); MEAN CORPUSCULAR HEMOGLOBIN 30.4 pg (27.0-33.0); MEAN CORPUSCULAR HGB CONC 30.6 g/dl (32.0-36.5); MEAN CORPUSCULAR VOLUME 99.6 fl (80.0-96.0); MONO # 1.4 10^3/uL (0.0-0.8); MONO % 14.5 % (2.0-8.0); NEUTROPHILS # 6.4 10^3/uL (1.5-8.5); NEUTROPHILS % 67.6 % (36.0-66.0); PLATELET COUNT, AUTOMATED 305 10^3/uL (150-450); WHITE BLOOD COUNT 9.5 10^3/uL (4.0-10.0)
[2024-09-30 06:21] LABS: ALBUMIN 1.9 G/DL (3.2-5.2); BILIRUBIN,TOTAL 0.4 MG/DL (0.3-1.2); CALCIUM LEVEL 9.1 MG/DL (8.5-10.1); CREATININE FOR GFR 1.99 MG/DL (0.55-1.30); GLOMERULAR FILTRATION RATE 27.3 (>51); MAGNESIUM LEVEL 1.9 MG/DL (1.8-2.4); TOTAL PROTEIN 5.1 G/DL (5.7-8.2)
[2024-09-30] MEDS: SODIUM CHLORIDE 0.9% INJ 10 ML SYR IV SCH (20:25)
[2024-09-30] MEDS: SODIUM CHLORIDE 0.9% INJ 10 ML SYR IV PRN (21:38)
[2024-10-01 01:03] VITALS: O2SAT 90
[2024-10-01 04:00] VITALS: BP 128/89; TEMP 97.5; O2SAT 93
[2024-10-01 05:47] LABS: HEMATOCRIT 26.3 % (36.0-47.0); HEMOGLOBIN 8.3 g/dl (12.0-15.5); MEAN CORPUSCULAR HEMOGLOBIN 29.5 pg (27.0-33.0); MEAN CORPUSCULAR HGB CONC 31.6 g/dl (32.0-36.5); MEAN CORPUSCULAR VOLUME 93.6 fl (80.0-96.0); PLATELET COUNT, AUTOMATED 363 10^3/uL (150-450); RED BLOOD COUNT 2.81 10^6/uL (4.00-5.40); WHITE BLOOD COUNT 11.3 10^3/uL (4.0-10.0)
[2024-10-01 06:07] LABS: ALBUMIN 2.1 G/DL (3.2-5.2); BILIRUBIN,TOTAL 0.4 MG/DL (0.3-1.2); CALCIUM LEVEL 9.3 MG/DL (8.5-10.1); CREATININE FOR GFR 1.85 MG/DL (0.55-1.30); GLOMERULAR FILTRATION RATE 29.7 (>51); POTASSIUM SERUM 5.4 MMOL/L (3.5-5.1); TOTAL PROTEIN 5.3 G/DL (5.7-8.2)
[2024-10-01 06:49] LABS: MAGNESIUM LEVEL 1.7 MG/DL (1.8-2.4)
[2024-10-01 08:00] LABS: BASOPHILS 1 % (0-1); EOSINOPHILS 2 % (0-3); LYMPHOCYTES 11 % (16-44); MONOCYTES 12 % (0-5); NEUTROPHILS 72 % (28-66)
[2024-10-01 08:02] LABS: ANISOCYTOSIS 4+; HYPOCHROMASIA 1+; PLATELET ESTIMATE NORMAL (NORMAL)
[2024-10-01] MEDS: ALBUTEROL SULFATE 2.5MG/0.5ML INH NEB SOLN NEB ONE (08:20)
[2024-10-01] MEDS: FUROSEMIDE 40MG/4ML VIAL IV ONE (08:38)
[2024-10-01] MEDS: MAGNESIUM OXIDE 400MG TAB (MAG-OX) PO ONE (08:39)
[2024-10-01 08:41] VITALS: BP 132/80
[2024-10-01] MEDS ORDERED: DOXY-440 PO (09:29)
[2024-10-01] MEDS ORDERED: VANC1CAP6 PO (09:48)
[2024-10-01] MEDS ORDERED: PROB250C PO (10:31)
[2024-10-01] MEDS: PATIROMER SORBITEX CALCIUM 8.4 GM POWDER PACKET (VELTASSA) PO ONE (10:42)
[2024-10-01 12:00] VITALS: BP 128/79; TEMP 98.2; O2SAT 98
[2024-10-01 13:41] LABS: CALCIUM LEVEL 9.7 MG/DL (8.5-10.1); CREATININE FOR GFR 1.78 MG/DL (0.55-1.30); GLOMERULAR FILTRATION RATE 31.1 (>51); POTASSIUM SERUM 4.1 MMOL/L (3.5-5.1)
[2024-10-01] MEDS: NEOSPORIN OINT 0.9 GM PKT TOP STA (16:21)
== END 2024-10-01 17:25 | disposition home or self-care (01) | DRG 871 ==
LOC: EDBD 14:37 → M ED 14:37 → M ED INP 09-22 00:47 → M ICU 09-22 02:07 → M MSPAV 09-30 15:03
PROVIDERS: ADMIT Student in an Organized Health Care Education/Training Program; ATTEND Student in an Organized Health Care Education/Training Program
PROC: B246ZZZ Ultrasonography of Right and Left Heart (ICD-10-PCS; principal; 2024-09-22)
PROC: 30233N1 Transfusion of Nonautologous Red Blood Cells into Peripheral Vein, Percutaneous Approach (ICD-10-PCS; 2024-09-25)
DX: A41.9 Sepsis, unspecified organism (principal); J96.01 Acute respiratory failure with hypoxia; J18.9 Pneumonia, unspecified organism; I50.33 Acute on chronic diastolic (congestive) heart failure; E87.20 Acidosis, unspecified; J81.1 Chronic pulmonary edema; E87.0 Hyperosmolality and hypernatremia; N17.9 Acute kidney failure, unspecified; I24.89 Other forms of acute ischemic heart disease; D62 Acute posthemorrhagic anemia; R65.20 Severe sepsis without septic shock; N18.30 Chronic kidney disease, stage 3 unspecified; E87.6 Hypokalemia; R31.9 Hematuria, unspecified; K70.31 Alcoholic cirrhosis of liver with ascites; D63.8 Anemia in other chronic diseases classified elsewhere; K21.9 Gastro-esophageal reflux disease without esophagitis; E83.42 Hypomagnesemia; E03.9 Hypothyroidism, unspecified; M10.9 Gout, unspecified; G62.9 Polyneuropathy, unspecified; F39 Unspecified mood [affective] disorder; Z87.891 Personal history of nicotine dependence; Z79.890 Hormone replacement therapy; Z79.899 Other long term (current) drug therapy

== ENCOUNTER 2024-10-09 12:26 | Observation (INO) | payer OTHER ==
[~2024-10-09] VITALS: Ht 162.6 cm; Wt 66.1 kg
[~2024-10-09 12:26] MED LIST changes: +DOXY-440 PO; +POTA-151 PO; +PROB250C PO; +VANC1CAP6 PO
[2024-10-09 13:17] LABS: HEMOGLOBIN 9.2 g/dl (12.0-15.5); MEAN CORPUSCULAR HEMOGLOBIN 30.3 pg (27.0-33.0); MEAN CORPUSCULAR HGB CONC 29.7 g/dl (32.0-36.5); PLATELET COUNT, AUTOMATED 446 10^3/uL (150-450); RED BLOOD COUNT 3.04 10^6/uL (4.00-5.40); WHITE BLOOD COUNT 8.7 10^3/uL (4.0-10.0)
[2024-10-09 13:41] LABS: ALBUMIN 2.8 G/DL (3.2-5.2); ALKALINE PHOSPHATASE 122 U/L (35-104); ALT/SGPT 18 U/L (7.0-40); AST/SGOT 39 U/L (<34); BILIRUBIN,DIRECT < 0.1 MG/DL (<0.4); BILIRUBIN,TOTAL 0.3 MG/DL (0.3-1.2); BLOOD UREA NITROGEN 35 MG/DL (9-23); CALCIUM LEVEL 9.6 MG/DL (8.5-10.1); CARBON DIOXIDE LEVEL 18 MMOL/L (20-31); CHLORIDE LEVEL 119 MMOL/L (98-107); CREATININE FOR GFR 2.38 MG/DL (0.55-1.30); FREE T4 1.11 NG/DL (0.89-1.76); GLOMERULAR FILTRATION RATE 22.2 (>51); GLUCOSE, FASTING 92 MG/DL (60-100); MAGNESIUM LEVEL 1.2 MG/DL (1.8-2.4); POTASSIUM SERUM 5.8 MMOL/L (3.5-5.1); SODIUM LEVEL 145 MMOL/L (136-145); THYROID STIMULATING HORMONE 3.598 uIU/ML (0.55-4.78); TOTAL PROTEIN 6.4 G/DL (5.7-8.2)
[2024-10-09 13:53] LABS: ATYPICAL LYMPH 6 % (0-5); LYMPHOCYTES 17 % (16-44); MONOCYTES 12 % (0-5); NEUTROPHILS 64 % (28-66); PLATELET ESTIMATE NORMAL (NORMAL)
[2024-10-09 13:59] LABS: ANISOCYTOSIS 2+; HYPOCHROMASIA 1+
[2024-10-09] MEDS: MAG SULF 1GM/100ML (MAG RUN) 1 GM in IV 1 EA IV ONE (14:03)
[2024-10-09] MEDS: NS 1,000 ML IV SCH (14:03)
[2024-10-09] MEDS ORDERED: PROB250C PO (14:45)
[2024-10-09] MEDS ORDERED: VANC125C3 PO (14:45)
[2024-10-09] MEDS ORDERED: RA M500C PO (14:47)
[2024-10-09] MEDS ORDERED: D3 H10002 PO (14:47)
[2024-10-09] MEDS ORDERED: HOME MED LIST COMPLETE! XX SCH (14:50)
[2024-10-09] MEDS: MAG SULF 1GM/100ML (MAG RUN) 1 GM in IV 1 EA IV SCH (15:39)
[2024-10-09] MEDS: SODIUM BICARBONATE 75 MEQ in D5W/0.45% SODIUM CHLORIDE 1,000 ML IV SCH (16:02)
[2024-10-09] MEDS: PATIROMER SORBITEX CALCIUM 8.4 GM POWDER PACKET (VELTASSA) PO ONE (17:11)
[2024-10-09] MEDS: SUCRALFATE 1 GM TAB PO SCH (17:41)
[2024-10-09 18:25] VITALS: BP 136/90; TEMP 98.3; O2SAT 90
[2024-10-09 18:48] LABS: CALCIUM LEVEL 9.6 MG/DL (8.5-10.1); CREATININE FOR GFR 2.39 MG/DL (0.55-1.30); GLOMERULAR FILTRATION RATE 22.1 (>51); POTASSIUM SERUM 5.7 MMOL/L (3.5-5.1)
[2024-10-09] MEDS: SOD POLYSTYRENE SULFONATE SUSP 15GM 60ML UD PO ONE (19:29)
[2024-10-09 19:46] VITALS: BP 154/97; TEMP 98; O2SAT 97
[2024-10-09] MEDS: PANTOPRAZOLE 40MG TAB (PROTONIX) PO SCH (20:01)
[2024-10-09] MEDS: LACTULOSE 20GM/30ML SYRUP UDC PO SCH (20:01)
[2024-10-09] MEDS: CALCITRIOL 0.25 MCG CAP (S0169) PO SCH (20:01)
[2024-10-09] MEDS: GABAPENTIN 100 MG CAP PO SCH (20:01)
[2024-10-09] MEDS: MIRTAZAPINE 15 MG TAB PO SCH (20:01)
[2024-10-09] MEDS: VITAMIN D 1,000 INTERNATIONAL UNITS TABLET PO SCH (20:01)
[2024-10-09 23:55] VITALS: BP 132/85; TEMP 97.2; O2SAT 97
[2024-10-10 04:30] VITALS: BP 129/85; TEMP 97.1; O2SAT 97
[2024-10-10] MEDS: LEVOTHYROXINE 150MCG TABLET (0.15MG) PO SCH (05:48)
[2024-10-10] MEDS: ACETAMINOPHEN 325 MG TAB PO ONE (05:48)
[2024-10-10 06:14] LABS: HEMATOCRIT 25.5 % (36.0-47.0); HEMOGLOBIN 7.5 g/dl (12.0-15.5); MEAN CORPUSCULAR HEMOGLOBIN 29.2 pg (27.0-33.0); MEAN CORPUSCULAR HGB CONC 29.4 g/dl (32.0-36.5); MEAN CORPUSCULAR VOLUME 99.2 fl (80.0-96.0); PLATELET COUNT, AUTOMATED 357 10^3/uL (150-450); RED BLOOD COUNT 2.57 10^6/uL (4.00-5.40); WHITE BLOOD COUNT 8.1 10^3/uL (4.0-10.0)
[2024-10-10 06:40] LABS: CALCIUM LEVEL 9.2 MG/DL (8.5-10.1); CREATININE FOR GFR 2.22 MG/DL (0.55-1.30); GLOMERULAR FILTRATION RATE 24.1 (>51); MAGNESIUM LEVEL 1.9 MG/DL (1.8-2.4); POTASSIUM SERUM 5.2 MMOL/L (3.5-5.1)
[2024-10-10 07:40] VITALS: BP 143/96; TEMP 98.3; O2SAT 96
[2024-10-10] MEDS: SOD POLYSTYRENE SULFONATE SUSP 15GM 60ML UD PO ONE (08:54)
[2024-10-10] MEDS: ENOXAPARIN 30MG/0.3ML SYRINGE (J1650 PER 10MG) SC SCH (08:55)
[2024-10-10] MEDS: LACTOBACILLUS ACIDOPHILUS CAP (BACID) PO SCH (08:55)
[2024-10-10 08:56] VITALS: BP 143/96
[2024-10-10] MEDS: FOLIC ACID 1MG TAB PO SCH (08:56)
[2024-10-10] MEDS: METOPROLOL TART 25 MG TABLET PO SCH (08:56)
[2024-10-10] MEDS: THIAMINE 100 MG TAB PO SCH (08:57)
[2024-10-10] MEDS ORDERED: SODI650T PO (11:35)
[2024-10-10 13:27] LABS: HEMATOCRIT 29.6 % (36.0-47.0); HEMOGLOBIN 8.8 g/dl (12.0-15.5)
[2024-10-10] MEDS ORDERED: METO1TAB87 PO (13:44)
[2024-10-10 13:55] LABS: CALCIUM LEVEL 9.3 MG/DL (8.5-10.1); CREATININE FOR GFR 2.05 MG/DL (0.55-1.30); GLOMERULAR FILTRATION RATE 26.4 (>51); POTASSIUM SERUM 4.8 MMOL/L (3.5-5.1)
== END 2024-10-10 15:13 | disposition home or self-care (01) ==
LOC: M ED 12:26 → M ED INP 14:50 → M PCU 18:18
PROVIDERS: ADMIT Internal Medicine; ATTEND Internal Medicine
DX: E87.5 Hyperkalemia (principal); E83.42 Hypomagnesemia; E87.20 Acidosis, unspecified; N17.9 Acute kidney failure, unspecified; N18.9 Chronic kidney disease, unspecified; E87.8 Other disorders of electrolyte and fluid balance, not elsewhere classified; Z99.81 Dependence on supplemental oxygen; D64.9 Anemia, unspecified; R00.0 Tachycardia, unspecified; K70.30 Alcoholic cirrhosis of liver without ascites; K21.9 Gastro-esophageal reflux disease without esophagitis; K27.9 Peptic ulcer, site unspecified, unspecified as acute or chronic, without hemorrhage or perforation; Z87.19 Personal history of other diseases of the digestive system; E03.9 Hypothyroidism, unspecified; M10.9 Gout, unspecified; Z98.891 History of uterine scar from previous surgery; Z86.718 Personal history of other venous thrombosis and embolism; Z98.890 Other specified postprocedural states; Z87.891 Personal history of nicotine dependence; Z86.19 Personal history of other infectious and parasitic diseases; Z94.82 Intestine transplant status; F10.11 Alcohol abuse, in remission; Z79.899 Other long term (current) drug therapy; Z79.890 Hormone replacement therapy
CPT/HCPCS: 36415; 71045; 80048; 80076; 83735; 84132; 84439; 84443; 85014; 85018; 85025; 85027; 93005; 93041; 94760; 96361; 96365; 96366; 96372; 99285; J1650; J3475

== ENCOUNTER 2024-11-09 08:02 | Emergency (ER) | payer OTHER ==
[~2024-11-09] VITALS: Ht 160 cm; Wt 61.4 kg
[~2024-11-09 08:02] MED LIST changes: +D3 H10002 PO; +METO1TAB87 PO; +RA M500C PO; +SODI650T PO; +VANC125C3 PO
[2024-11-09] MEDS ORDERED: FURO20TA2 (09:20)
[2024-11-09 09:34] LABS: HEMATOCRIT 33.7 % (36.0-47.0); MEAN CORPUSCULAR HEMOGLOBIN 30.4 pg (27.0-33.0); MEAN CORPUSCULAR HGB CONC 32.6 g/dl (32.0-36.5); MEAN CORPUSCULAR VOLUME 93.1 fl (80.0-96.0); PLATELET COUNT, AUTOMATED 150 10^3/uL (150-450); RED BLOOD COUNT 3.62 10^6/uL (4.00-5.40); WHITE BLOOD COUNT 8.9 10^3/uL (4.0-10.0)
[2024-11-09 10:00] LABS: CALCIUM LEVEL 6.5 MG/DL (8.5-10.1); CREATININE FOR GFR 2.33 MG/DL (0.55-1.30); GLOMERULAR FILTRATION RATE 22.8 (>51); POTASSIUM SERUM 3.8 MMOL/L (3.5-5.1)
[2024-11-09 13:00] VITALS: BP 117/77
[2024-11-09 13:07] VITALS: O2SAT 98
[2024-11-09] MEDS: ACETAMINOPHEN 500 MG TAB PO ONE (13:12)
[2024-11-09 13:13] VITALS: TEMP 100.5
== END 2024-11-09 13:22 | disposition home or self-care (01) ==
LOC: M ED 08:02
DX: R07.89 Other chest pain (principal); R16.0 Hepatomegaly, not elsewhere classified; I50.22 Chronic systolic (congestive) heart failure; N18.9 Chronic kidney disease, unspecified; Z79.899 Other long term (current) drug therapy

== ENCOUNTER 2024-11-30 09:16 | Inpatient (IN) | payer OTHER ==
[~2024-11-30] VITALS: Ht 162.6 cm; Wt 56.0 kg
[2024-11-30] VITALS (23 sets, daily range): BP systolic 79–136; BP diastolic 43–91; TEMP 96.9; O2SAT 87–100
[~2024-11-30 09:16] MED LIST changes: +FURO20TA2 PO
[2024-11-30] MEDS: NS (Normal Saline) 0.9% 1,000 ML IV ONE ×2 (10:55→12:54)
[2024-11-30 11:51] LABS: VENOUS BASE EXCESS -3.5 (-2.0-2.0); VENOUS HCO3 19.7 MMOL/L (23.0-27.0); VENOUS O2 SATURATION 99.6 % (60.0-80.0); VENOUS PARTIAL PRESSURE CO2 29.4 mmHg (38.0-50.0); VENOUS PARTIAL PRESSURE O2 242.1 mmHg (30.0-50.0); VENOUS PH 7.444 UNITS (7.330-7.430); VENOUS STANDARD HCO3 21.6 MMOL/L; VENOUS TOTAL CO2 20.6 MMOL/L (24.0-28.0)
[2024-11-30 12:30] LABS: CALCIUM LEVEL 4.9 MG/DL (8.5-10.1); CREATININE FOR GFR 4.15 MG/DL (0.55-1.30); GLOMERULAR FILTRATION RATE 11.7 (>51); POTASSIUM SERUM 4.1 MMOL/L (3.5-5.1)
[2024-11-30 12:35] LABS: BASO % 0.5 % (0.0-1.0); EOS % 0.3 % (0.0-3.0); HEMATOCRIT 24.3 % (36.0-47.0); HEMOGLOBIN 8.7 g/dl (12.0-15.5); LYMPH # 0.8 10^3/uL (1.5-5.0); LYMPH % 8.7 % (24.0-44.0); MEAN CORPUSCULAR HEMOGLOBIN 30.9 pg (27.0-33.0); MEAN CORPUSCULAR HGB CONC 35.8 g/dl (32.0-36.5); MEAN CORPUSCULAR VOLUME 86.2 fl (80.0-96.0); MONO # 0.9 10^3/uL (0.0-0.8); MONO % 10.2 % (2.0-8.0); NEUTROPHILS # 6.8 10^3/uL (1.5-8.5); NEUTROPHILS % 78.1 % (36.0-66.0); PLATELET COUNT, AUTOMATED 107 10^3/uL (150-450); RED BLOOD COUNT 2.82 10^6/uL (4.00-5.40); WHITE BLOOD COUNT 8.8 10^3/uL (4.0-10.0)
[2024-11-30 12:51] LABS: MAGNESIUM LEVEL 2.1 MG/DL (1.8-2.4)
[2024-11-30] MEDS: CALCIUM CHLORIDE 10% 1 GM in D5W 100 ML IV ONE (12:55)
[2024-11-30] MEDS ORDERED: ALLO100T PO (13:23)
[2024-11-30] MEDS ORDERED: SODI650T PO (13:23)
[2024-11-30] MEDS ORDERED: HOME MED LIST COMPLETE! XX SCH (13:25)
[2024-11-30] MEDS: HYDROCORTISONE 100MG/2ML VIAL IV ONE (15:41)
[2024-11-30] MEDS: NOREPINEPHRINE 4MG IN D5 250ML 4 MG in IV 1 EA IV SCH (15:47)
[2024-11-30 16:06] LABS: ALBUMIN 1.2 G/DL (3.2-5.2); BILIRUBIN,TOTAL 0.5 MG/DL (0.3-1.2); PHOSPHORUS LEVEL 1.3 MG/DL (2.5-4.9)
[2024-11-30 16:08] LABS: FREE T4 0.97 NG/DL (0.89-1.76); THYROID STIMULATING HORMONE 5.337 uIU/ML (0.55-4.78)
[2024-11-30] MEDS: LR 1,000 ML IV SCH (16:13)
[2024-11-30] MEDS: CALCIUM GLUCONATE 1,000 MG in DEXTROSE 5% (D5W) MINI-BAG PLU 100 ML IV ONE (18:03)
[2024-11-30] MEDS: SODIUM PHOSPHATE INJ 30 MMOL in D5W 500 ML IV ONE (19:38)
[2024-11-30] MEDS: SUCRALFATE 1 GM TAB PO SCH (20:25)
[2024-11-30] MEDS: MIRTAZAPINE 15 MG TAB PO SCH (20:25)
[2024-11-30] MEDS: SODIUM BICARBONATE 325 MG TAB PO SCH (20:25)
[2024-11-30] MEDS: CALCITRIOL 0.25 MCG CAP (S0169) PO SCH (20:25)
[2024-11-30] MEDS: GABAPENTIN 100 MG CAP PO SCH (20:25)
[2024-11-30] MEDS: HEPARIN SOD (PORCINE) 5000UNITS/ML 1ML VIAL/SYRINGE SC SCH (21:46)
[2024-12-01] VITALS (94 sets, daily range): BP systolic 66–127; BP diastolic 47–80; TEMP 96.9–97.7; O2SAT 94–100
[2024-12-01] MEDS: ACETAMINOPHEN 325 MG TAB PO ONE (04:22)
[2024-12-01 05:18] LABS: HEMATOCRIT 25.8 % (36.0-47.0); MEAN CORPUSCULAR HEMOGLOBIN 29.9 pg (27.0-33.0); MEAN CORPUSCULAR HGB CONC 34.9 g/dl (32.0-36.5); MEAN CORPUSCULAR VOLUME 85.7 fl (80.0-96.0); PLATELET COUNT, AUTOMATED 155 10^3/uL (150-450); RED BLOOD COUNT 3.01 10^6/uL (4.00-5.40); WHITE BLOOD COUNT 12.7 10^3/uL (4.0-10.0)
[2024-12-01 05:41] LABS: ALBUMIN 2.5 G/DL (3.2-5.2); BILIRUBIN,TOTAL 0.9 MG/DL (0.3-1.2); CALCIUM LEVEL 8.2 MG/DL (8.5-10.1); CREATININE FOR GFR 4.82 MG/DL (0.55-1.30); GLOMERULAR FILTRATION RATE 9.8 (>51); MAGNESIUM LEVEL 2.6 MG/DL (1.8-2.4); PHOSPHORUS LEVEL 4.8 MG/DL (2.5-4.9); POTASSIUM SERUM 5.4 MMOL/L (3.5-5.1); TOTAL PROTEIN 5.8 G/DL (5.7-8.2)
[2024-12-01] MEDS: LEVOTHYROXINE 150MCG TABLET (0.15MG) PO SCH (06:00)
[2024-12-01 06:12] LABS: LYMPHOCYTES 4 % (16-44); MONOCYTES 5 % (0-5); NEUTROPHILS 91 % (28-66)
[2024-12-01 06:14] LABS: PLATELET ESTIMATE NORMAL (NORMAL)
[2024-12-01 06:15] LABS: ANISOCYTOSIS 3+; POIKILOCYTOSIS 2+; TARGET CELLS 1+
[2024-12-01 06:16] LABS: TEAR DROP CELLS 1+
[2024-12-01 06:17] LABS: BURR CELLS 1+
[2024-12-01 06:21] LABS: HYPOCHROMASIA 1+
[2024-12-01 06:35] LABS: POLYCHROMASIA 1+
[2024-12-01] MEDS: FOLIC ACID 1MG TAB PO SCH (07:57)
[2024-12-01] MEDS: THIAMINE 100 MG TAB PO SCH (07:58)
[2024-12-01] MEDS: allopurinoL 100 MG TAB PO SCH (07:58)
[2024-12-01] MEDS: MIDODRINE 5 MG TAB PO SCH (11:09)
[2024-12-01] MEDS: OCTREOTIDE ACETATE 100MCG/ML VIAL **SC ADMINISTRATION ONLY SC SCH (14:35)
[2024-12-01] MEDS: NS (Normal Saline) 0.9% 1,000 ML IV SCH (15:04)
[2024-12-01] MEDS: PATIROMER SORBITEX CALCIUM 8.4 GM POWDER PACKET (VELTASSA) PO ONE (18:23)
[2024-12-02] VITALS (47 sets, daily range): BP systolic 89–135; BP diastolic 57–91; TEMP 97–99.8; O2SAT 92–99
[2024-12-02 05:00] LABS: HEMATOCRIT 21.5 % (36.0-47.0); HEMOGLOBIN 7.6 g/dl (12.0-15.5); MEAN CORPUSCULAR HEMOGLOBIN 29.8 pg (27.0-33.0); MEAN CORPUSCULAR HGB CONC 35.3 g/dl (32.0-36.5); MEAN CORPUSCULAR VOLUME 84.3 fl (80.0-96.0); PLATELET COUNT, AUTOMATED 122 10^3/uL (150-450); RED BLOOD COUNT 2.55 10^6/uL (4.00-5.40); WHITE BLOOD COUNT 9.2 10^3/uL (4.0-10.0)
[2024-12-02 05:27] LABS: ATYPICAL LYMPH 1 % (0-5); BASOPHILS 2 % (0-1); LYMPHOCYTES 12 % (16-44); METAMYELOCYTES 1 % (0-0); MONOCYTES 4 % (0-5); NEUTROPHILS 78 % (28-66)
[2024-12-02 05:28] LABS: ANISOCYTOSIS 2+; HYPOCHROMASIA 1+
[2024-12-02 05:29] LABS: PLATELET ESTIMATE DECREASED (NORMAL); POIKILOCYTOSIS 1+; TARGET CELLS 1+
[2024-12-02 05:30] LABS: TEAR DROP CELLS 1+
[2024-12-02 05:35] LABS: ALBUMIN 2.1 G/DL (3.2-5.2); CALCIUM LEVEL 7.9 MG/DL (8.5-10.1); CREATININE FOR GFR 4.38 MG/DL (0.55-1.30); TOTAL PROTEIN 5.1 G/DL (5.7-8.2)
[2024-12-02] MEDS: ONDANSETRON 4MG 2ML VIAL IV ONE (17:43)
[2024-12-02] MEDS: ACETAMINOPHEN 325 MG TAB PO ONE (21:44)
[2024-12-03] VITALS (21 sets, daily range): BP systolic 102–166; BP diastolic 57–97; TEMP 97.3–103.3; O2SAT 91–98
[2024-12-03] MEDS: ACETAMINOPHEN *IV* 1,000 MG in IV 1 EA IV ONE (03:20)
[2024-12-03 05:40] LABS: HEMATOCRIT 21.5 % (36.0-47.0); HEMOGLOBIN 7.5 g/dl (12.0-15.5); MEAN CORPUSCULAR HEMOGLOBIN 29.8 pg (27.0-33.0); MEAN CORPUSCULAR HGB CONC 34.9 g/dl (32.0-36.5); MEAN CORPUSCULAR VOLUME 85.3 fl (80.0-96.0); PLATELET COUNT, AUTOMATED 116 10^3/uL (150-450); RED BLOOD COUNT 2.52 10^6/uL (4.00-5.40); WHITE BLOOD COUNT 8.8 10^3/uL (4.0-10.0)
[2024-12-03 05:59] LABS: ALBUMIN 2.4 G/DL (3.2-5.2); BILIRUBIN,TOTAL 1.5 MG/DL (0.3-1.2); CALCIUM LEVEL 8.6 MG/DL (8.5-10.1); CREATININE FOR GFR 3.57 MG/DL (0.55-1.30); GLOMERULAR FILTRATION RATE 13.9 (>51); POTASSIUM SERUM 5.5 MMOL/L (3.5-5.1); TOTAL PROTEIN 4.9 G/DL (5.7-8.2)
[2024-12-03 07:36] LABS: AMORPHOUS SEDIMENT MODERATE (NEGATIVE); APPEARANCE, URINE TURBID (CLEAR); BACTERIA, URINE AUTO 1+ (NEGATIVE); BILIRUBIN, URINE AUTO NEGATIVE (NEGATIVE); BLOOD, URINE BLOOD 3+ (NEGATIVE); COLOR, URINE YELLOW (YELLOW); GLUCOSE, URINE (UA) AUTO NEGATIVE (NEGATIVE); KETONE, URINE AUTO NEGATIVE (NEGATIVE); LEUKOCYTE ESTERASE, URINE AUTO 3+ (NEGATIVE); NITRITE, URINE AUTO NEGATIVE (NEGATIVE); PROTEIN, URINE AUTO 2+ mg/dL (NEGATIVE); RBC, URINE AUTO 105 /HPF (0-3); SPECIFIC GRAVITY URINE AUTO 1.009 (1.002-1.035); SQUAMOUS EPITHELIAL CELL UR AU 0 /HPF (0-6); UROBILINOGEN, URINE AUTO 0.2 mg/dL (0.0-2.0); WBC, URINE AUTO TNTC /HPF (0-3)
[2024-12-03 07:46] LABS: LYMPHOCYTES 7 % (16-44); MONOCYTES 12 % (0-5); MYELOCYTES 1 % (0-0); NEUTROPHILS 79 % (28-66)
[2024-12-03 07:47] LABS: ANISOCYTOSIS 2+; OVALOCYTES 1+; PLATELET ESTIMATE DECREASED (NORMAL); POLYCHROMASIA 1+; TEAR DROP CELLS 1+
[2024-12-03 07:48] LABS: TOXIC VACUOLATION 1+
[2024-12-03 07:49] LABS: HELMET CELLS 1+
[2024-12-03] MEDS: PATIROMER SORBITEX CALCIUM 8.4 GM POWDER PACKET (VELTASSA) PO SCH (11:47)
[2024-12-03] MEDS: cefTRIAXone SOD 1 GM in DEXTROSE 5% (D5W) ADV/MINI-BAG 50 ML IV SCH (14:23)
[2024-12-03 15:00] LABS: INR 1.33; PARTIAL THROMBOPLASTIN TIME 68.9 SECONDS (24.8-34.2); PROTHROMBIN TIME 16.7 SECONDS (12.5-14.5)
[2024-12-03 16:40] LABS: APPEARANCE, BODY FLUID CLOUDY (CLEAR); ASCITES FL COLOR PALE YELLOW (COLORLESS); SOURCE, BODY FLUID ASCITES
[2024-12-03 17:05] LABS: SOURCE, BODY FLUID ALBUMIN ASCITES
[2024-12-03 17:10] LABS: SOURCE, BODY FLUID GLUCOSE ASCITES
[2024-12-03 17:12] LABS: SOURCE, BODY FLUID TOT PROTEIN ASCITES; TOTAL PROTEIN, BODY FLUID < 2.0 G/DL (NOT ESTABLISHED)
[2024-12-03 20:08] LABS: HEMATOCRIT 29.3 % (36.0-47.0)
[2024-12-03 20:21] LABS: HEMOGLOBIN 10.1 g/dl (12.0-15.5)
[2024-12-03] MEDS: ACETAMINOPHEN 650MG SUPP PR ONE (23:20)
[2024-12-03] MEDS: METOPROLOL TART 25 MG TABLET PO STA (23:22)
[2024-12-03 23:59] LABS: MAGNESIUM LEVEL 1.7 MG/DL (1.8-2.4); POTASSIUM SERUM 5.3 MMOL/L (3.5-5.1)
[2024-12-04] VITALS (29 sets, daily range): BP systolic 86–132; BP diastolic 58–81; TEMP 98–101.8; O2SAT 91–100
[2024-12-04] MEDS: VASOPRESSIN IN 0.9 % NACL 20 UNIT in IV 1 EA IV SCH (00:39)
[2024-12-04] MEDS: NOREPINEPHRINE 4MG IN D5 250ML 4 MG in IV 1 EA IV SCH (00:39)
[2024-12-04 01:28] LABS: HEMATOCRIT 26.6 % (36.0-47.0); MEAN CORPUSCULAR HEMOGLOBIN 29.9 pg (27.0-33.0); MEAN CORPUSCULAR HGB CONC 33.8 g/dl (32.0-36.5); MEAN CORPUSCULAR VOLUME 88.4 fl (80.0-96.0); PLATELET COUNT, AUTOMATED 100 10^3/uL (150-450); RED BLOOD COUNT 3.01 10^6/uL (4.00-5.40); WHITE BLOOD COUNT 10.9 10^3/uL (4.0-10.0)
[2024-12-04] MEDS: MAG SULF 1GM/100ML (MAG RUN) 1 GM in IV 1 EA IV SCH (01:34)
[2024-12-04] MEDS: ACETAMINOPHEN 325 MG TAB PO ONE (01:46)
[2024-12-04 02:26] LABS: LYMPHOCYTES 4 % (16-44); METAMYELOCYTES 2 % (0-0); MONOCYTES 9 % (0-5); MYELOCYTES 2 % (0-0); NEUTROPHILS 81 % (28-66)
[2024-12-04 02:29] LABS: ANISOCYTOSIS 1+
[2024-12-04 02:30] LABS: POLYCHROMASIA 1+
[2024-12-04 02:31] LABS: PLATELET ESTIMATE DECREASED (NORMAL)
[2024-12-04] MEDS: NS 500 ML IV ONE ×2 (02:46→04:52)
[2024-12-04] MEDS: ACETAMINOPHEN *IV* 1,000 MG in IV 1 EA IV ONE (04:30)
[2024-12-04 08:33] LABS: BASO % 0.2 % (0.0-1.0); EOS % 0.5 % (0.0-3.0); HEMATOCRIT 21.3 % (36.0-47.0); HEMOGLOBIN 7.4 g/dl (12.0-15.5); LYMPH # 0.8 10^3/uL (1.5-5.0); MEAN CORPUSCULAR HGB CONC 34.7 g/dl (32.0-36.5); MEAN CORPUSCULAR VOLUME 89.1 fl (80.0-96.0); MONO # 1.4 10^3/uL (0.0-0.8); MONO % 16.3 % (2.0-8.0); NEUTROPHILS # 5.7 10^3/uL (1.5-8.5); RED BLOOD COUNT 2.39 10^6/uL (4.00-5.40); WHITE BLOOD COUNT 8.3 10^3/uL (4.0-10.0)
[2024-12-04 09:03] LABS: PLATELET COUNT, AUTOMATED 78 10^3/uL (150-450)
[2024-12-04 09:28] LABS: ALBUMIN 2.5 G/DL (3.2-5.2); BILIRUBIN,TOTAL 1.3 MG/DL (0.3-1.2); CALCIUM LEVEL 7.7 MG/DL (8.5-10.1); CREATININE FOR GFR 2.66 MG/DL (0.55-1.30); GLOMERULAR FILTRATION RATE 19.5 (>51); TOTAL PROTEIN 4.5 G/DL (5.7-8.2)
[2024-12-04] MEDS: metroNIDAZOLE 500 MG in IV 1 EA IV SCH (09:37)
[2024-12-04] MEDS: SODIUM BICARBONATE 325 MG TAB PO SCH (12:23)
[2024-12-04] MEDS: cefTRIAXone SOD 2 GM in DEXTROSE 5% (D5W) ADV/MINI-BAG 50 ML IV SCH (14:17)
[2024-12-04] MEDS: LR 1,000 ML IV ONE (17:51)
[2024-12-04] MEDS: oxyCODONE 5MG TAB PO ONE (18:24)
[2024-12-04] MEDS: ONDANSETRON 4MG 2ML VIAL IV STA (19:05)
[2024-12-04] MEDS ORDERED: fentaNYL 100 MCG/2 ML INJECTION As Ordered ONE (20:47)
[2024-12-04] MEDS ORDERED: ROCURONIUM BROMIDE 50MG/5ML VIAL As Ordered ONE (20:47)
[2024-12-04] MEDS ORDERED: ETOMIDATE INJ 20MG/10ML VIAL As Ordered ONE (20:47)
[2024-12-04] MEDS ORDERED: propofoL 200 MG/20 ML VIAL As Ordered ONE (20:49)
[2024-12-04] MEDS ORDERED: CALCIUM CHLORIDE 10% 1 GM/10 ML SYR As Ordered ONE (20:50)
[2024-12-04] MEDS ORDERED: LIDOCAINE 2% 100MG/5ML SDV (FOR ANES.) As Ordered ONE (20:50)
[2024-12-04] MEDS ORDERED: ONDANSETRON 4MG 2ML VIAL As Ordered ONE (20:52)
[2024-12-04] MEDS ORDERED: PHENYLEPHRINE 10MG/ML 1ML VIAL As Ordered ONE (20:54)
[2024-12-04] MEDS ORDERED: PHENYLephrine 500MCG 5ML (100MCG/ML) SYRINGE As Ordered ONE (21:18)
[2024-12-04] MEDS ORDERED: MIDAZOLAM INJ 2MG/2ML VIAL As Ordered ONE (21:32)
[2024-12-04] MEDS ORDERED: KETOROLAC 60MG 2ML VIAL As Ordered ONE (22:05)
[2024-12-04] MEDS ORDERED: SUGAMMADEX SODIUM 500 MG/5 ML VIAL (BRIDION) As Ordered ONE (22:41)
[2024-12-05] VITALS (62 sets, daily range): BP systolic 81–153; BP diastolic 50–88; TEMP 96.5–97.4; O2SAT 89–100
[2024-12-05 01:27] LABS: HEMATOCRIT 21.6 % (36.0-47.0); HEMOGLOBIN 7.3 g/dl (12.0-15.5); MEAN CORPUSCULAR HEMOGLOBIN 29.1 pg (27.0-33.0); MEAN CORPUSCULAR HGB CONC 33.8 g/dl (32.0-36.5); MEAN CORPUSCULAR VOLUME 86.1 fl (80.0-96.0); RED BLOOD COUNT 2.51 10^6/uL (4.00-5.40); WHITE BLOOD COUNT 10.9 10^3/uL (4.0-10.0)
[2024-12-05 01:28] LABS: PLATELET COUNT, AUTOMATED 70 10^3/uL (150-450)
[2024-12-05 04:05] LABS: D-DIMER QUANT 2.67 ug/mL (<0.5); INR 1.46; PARTIAL THROMBOPLASTIN TIME 53.1 SECONDS (24.8-34.2)
[2024-12-05] MEDS: ONDANSETRON 4MG 2ML VIAL IV PRN (04:40)
[2024-12-05 05:13] LABS: BASO % 0.1 % (0.0-1.0); HEMOGLOBIN 7.7 g/dl (12.0-15.5); LYMPH # 0.7 10^3/uL (1.5-5.0); LYMPH % 5.2 % (24.0-44.0); MEAN CORPUSCULAR HEMOGLOBIN 30.3 pg (27.0-33.0); MEAN CORPUSCULAR VOLUME 86.6 fl (80.0-96.0); MONO # 1.1 10^3/uL (0.0-0.8); MONO % 7.5 % (2.0-8.0); NEUTROPHILS # 11.8 10^3/uL (1.5-8.5); NEUTROPHILS % 84.1 % (36.0-66.0); RED BLOOD COUNT 2.54 10^6/uL (4.00-5.40)
[2024-12-05 05:14] LABS: PLATELET COUNT, AUTOMATED 81 10^3/uL (150-450)
[2024-12-05] MEDS: PHYTONADIONE 5 MG TAB PO ONE (05:34)
[2024-12-05 05:40] LABS: ALBUMIN 2.9 G/DL (3.2-5.2); BILIRUBIN,TOTAL 1.1 MG/DL (0.3-1.2); CALCIUM LEVEL 9.9 MG/DL (8.5-10.1); CREATININE FOR GFR 2.68 MG/DL (0.55-1.30); GLOMERULAR FILTRATION RATE 19.4 (>51); POTASSIUM SERUM 5.6 MMOL/L (3.5-5.1); TOTAL PROTEIN 4.9 G/DL (5.7-8.2)
[2024-12-05] MEDS: DEXTROSE 50% 50ML SYRINGE IV STA (09:52)
[2024-12-05] MEDS: HumuLIN R (REGULAR) INSULIN (NovoLIN R) **100U/ML** PER UNIT IV STA (09:53)
[2024-12-05] MEDS: CALCIUM GLUCONATE 1,000 MG in DEXTROSE 5% (D5W) MINI-BAG PLU 100 ML IV ONE (09:54)
[2024-12-05] MEDS: PATIROMER SORBITEX CALCIUM 8.4 GM POWDER PACKET (VELTASSA) PO ONE (11:29)
[2024-12-05] MEDS: SODIUM BICARBONATE 325 MG TAB PO SCH (11:30)
[2024-12-05] MEDS: MIDODRINE 5 MG TAB PO SCH (11:30)
[2024-12-05] MEDS: FUROSEMIDE injection 100 MG, VIAL 2 BAG 13MM ADAPTER 1 EACH in D5W 100 ML IV SCH (12:10)
[2024-12-05 17:14] LABS: CALCIUM LEVEL 9.9 MG/DL (8.5-10.1); CREATININE FOR GFR 2.88 MG/DL (0.55-1.30); GLOMERULAR FILTRATION RATE 17.8 (>51); POTASSIUM SERUM 5.2 MMOL/L (3.5-5.1)
[2024-12-06] VITALS (12 sets, daily range): BP systolic 97–133; BP diastolic 56–86; TEMP 96.8–97.9; O2SAT 96–99
[2024-12-06] MEDS: PROMETHAZINE 25MG/ML 1ML VIAL IV ONE (03:32)
[2024-12-06 04:45] LABS: BASO % 0.1 % (0.0-1.0); EOS % 0.1 % (0.0-3.0); HEMOGLOBIN 7.3 g/dl (12.0-15.5); LYMPH % 5.7 % (24.0-44.0); MEAN CORPUSCULAR HEMOGLOBIN 29.7 pg (27.0-33.0); MEAN CORPUSCULAR HGB CONC 34.8 g/dl (32.0-36.5); MEAN CORPUSCULAR VOLUME 85.4 fl (80.0-96.0); MONO # 1.7 10^3/uL (0.0-0.8); MONO % 9.3 % (2.0-8.0); NEUTROPHILS # 15.1 10^3/uL (1.5-8.5); NEUTROPHILS % 82.5 % (36.0-66.0); PLATELET COUNT, AUTOMATED 125 10^3/uL (150-450); RED BLOOD COUNT 2.46 10^6/uL (4.00-5.40); WHITE BLOOD COUNT 18.3 10^3/uL (4.0-10.0)
[2024-12-06 05:11] LABS: ALBUMIN 2.5 G/DL (3.2-5.2); BILIRUBIN,TOTAL 0.7 MG/DL (0.3-1.2); CALCIUM LEVEL 8.7 MG/DL (8.5-10.1); CREATININE FOR GFR 3.42 MG/DL (0.55-1.30); GLOMERULAR FILTRATION RATE 14.6 (>51); TOTAL PROTEIN 4.4 G/DL (5.7-8.2)
[2024-12-06] MEDS: PROMETHAZINE 25MG/ML 1ML VIAL IV PRN (07:48)
[2024-12-06] MEDS: MAGNESIUM CITRATE 300ML BTL PO ONE (11:18)
[2024-12-06 17:55] LABS: HEMATOCRIT 27.8 % (36.0-47.0); HEMOGLOBIN 9.6 g/dl (12.0-15.5)
[2024-12-07 04:00] VITALS: BP 118/78; TEMP 97.6; O2SAT 92
[2024-12-07 04:20] LABS: BASO % 0.1 % (0.0-1.0); EOS # 0.1 10^3/uL (0.0-0.5); EOS % 0.4 % (0.0-3.0); HEMATOCRIT 27.6 % (36.0-47.0); HEMOGLOBIN 9.6 g/dl (12.0-15.5); LYMPH # 1.1 10^3/uL (1.5-5.0); LYMPH % 6.2 % (24.0-44.0); MEAN CORPUSCULAR HEMOGLOBIN 28.7 pg (27.0-33.0); MEAN CORPUSCULAR HGB CONC 34.8 g/dl (32.0-36.5); MEAN CORPUSCULAR VOLUME 82.6 fl (80.0-96.0); MONO # 1.7 10^3/uL (0.0-0.8); MONO % 9.6 % (2.0-8.0); NEUTROPHILS # 14.1 10^3/uL (1.5-8.5); NEUTROPHILS % 81.5 % (36.0-66.0); PLATELET COUNT, AUTOMATED 179 10^3/uL (150-450); RED BLOOD COUNT 3.34 10^6/uL (4.00-5.40); WHITE BLOOD COUNT 17.3 10^3/uL (4.0-10.0)
[2024-12-07 04:46] LABS: ALBUMIN 2.5 G/DL (3.2-5.2); BILIRUBIN,TOTAL 0.7 MG/DL (0.3-1.2); CALCIUM LEVEL 8.2 MG/DL (8.5-10.1); CREATININE FOR GFR 3.47 MG/DL (0.55-1.30); GLOMERULAR FILTRATION RATE 14.4 (>51); POTASSIUM SERUM 4.3 MMOL/L (3.5-5.1); TOTAL PROTEIN 4.8 G/DL (5.7-8.2)
[2024-12-07 08:00] VITALS: BP 105/77; TEMP 97.3; O2SAT 94
[2024-12-07] MEDS: SENOKOT S TAB PO SCH (09:53)
[2024-12-07 12:00] VITALS: BP 104/72; TEMP 97.2; O2SAT 94
[2024-12-07 20:00] VITALS: BP 115/83; TEMP 97.4; O2SAT 95
[2024-12-07] MEDS: FUROSEMIDE injection 100 MG, VIAL 2 BAG 13MM ADAPTER 1 EACH in NS 100 ML IV SCH (22:39)
[2024-12-08 03:00] VITALS: BP 108/69; TEMP 98.2; O2SAT 98
[2024-12-08 04:31] LABS: BASO % 0.2 % (0.0-1.0); EOS # 0.1 10^3/uL (0.0-0.5); EOS % 0.8 % (0.0-3.0); HEMATOCRIT 25.8 % (36.0-47.0); HEMOGLOBIN 8.7 g/dl (12.0-15.5); LYMPH # 1.5 10^3/uL (1.5-5.0); LYMPH % 9.6 % (24.0-44.0); MEAN CORPUSCULAR HEMOGLOBIN 29.1 pg (27.0-33.0); MEAN CORPUSCULAR HGB CONC 33.7 g/dl (32.0-36.5); MEAN CORPUSCULAR VOLUME 86.3 fl (80.0-96.0); MONO # 1.6 10^3/uL (0.0-0.8); MONO % 10.4 % (2.0-8.0); NEUTROPHILS # 11.7 10^3/uL (1.5-8.5); NEUTROPHILS % 76.9 % (36.0-66.0); PLATELET COUNT, AUTOMATED 189 10^3/uL (150-450); RED BLOOD COUNT 2.99 10^6/uL (4.00-5.40); WHITE BLOOD COUNT 15.2 10^3/uL (4.0-10.0)
[2024-12-08 05:18] LABS: ALBUMIN 2.2 G/DL (3.2-5.2); BILIRUBIN,TOTAL 0.7 MG/DL (0.3-1.2); CALCIUM LEVEL 7.5 MG/DL (8.5-10.1); CREATININE FOR GFR 3.21 MG/DL (0.55-1.30); GLOMERULAR FILTRATION RATE 15.7 (>51); TOTAL PROTEIN 4.4 G/DL (5.7-8.2)
[2024-12-08 07:46] VITALS: BP 118/77; TEMP 97.6; O2SAT 97
[2024-12-08] MEDS: PANTOPRAZOLE 40MG VIAL IV SCH (15:42)
[2024-12-08 16:13] VITALS: BP 114/77; TEMP 97.7; O2SAT 95
[2024-12-08 22:00] VITALS: BP 117/67; TEMP 97.4; O2SAT 96
[2024-12-09 04:21] LABS: BASO % 0.2 % (0.0-1.0); EOS # 0.1 10^3/uL (0.0-0.5); EOS % 1.1 % (0.0-3.0); HEMATOCRIT 25.9 % (36.0-47.0); HEMOGLOBIN 8.5 g/dl (12.0-15.5); LYMPH % 8.1 % (24.0-44.0); MEAN CORPUSCULAR HEMOGLOBIN 29.2 pg (27.0-33.0); MEAN CORPUSCULAR HGB CONC 32.8 g/dl (32.0-36.5); MONO # 1.4 10^3/uL (0.0-0.8); MONO % 11.2 % (2.0-8.0); NEUTROPHILS # 9.9 10^3/uL (1.5-8.5); NEUTROPHILS % 77.5 % (36.0-66.0); PLATELET COUNT, AUTOMATED 233 10^3/uL (150-450); RED BLOOD COUNT 2.91 10^6/uL (4.00-5.40); WHITE BLOOD COUNT 12.7 10^3/uL (4.0-10.0)
[2024-12-09 04:55] LABS: ALBUMIN 2.2 G/DL (3.2-5.2); BILIRUBIN,TOTAL 0.6 MG/DL (0.3-1.2); CALCIUM LEVEL 7.6 MG/DL (8.5-10.1); CREATININE FOR GFR 2.87 MG/DL (0.55-1.30); GLOMERULAR FILTRATION RATE 17.9 (>51); POTASSIUM SERUM 3.9 MMOL/L (3.5-5.1); TOTAL PROTEIN 4.2 G/DL (5.7-8.2)
[2024-12-09 05:00] VITALS: BP 112/69; TEMP 98.4; O2SAT 98
[2024-12-09 08:00] VITALS: BP 113/74; TEMP 97.6
[2024-12-09 11:04] VITALS: BP 111/75; TEMP 98; O2SAT 98
[2024-12-09 12:26] VITALS: BP 104/74; TEMP 98.2; O2SAT 100
[2024-12-09] MEDS ORDERED: SODIUM CHLORIDE 0.9% INJ 10 ML SYR IV PRN (13:35)
[2024-12-09] MEDS: SODIUM CHLORIDE 0.9% INJ 10 ML SYR IV SCH (15:03)
[2024-12-09 16:00] VITALS: BP 112/76; TEMP 98; O2SAT 100
[2024-12-09 20:12] VITALS: BP 119/71; TEMP 97.1; O2SAT 100
[2024-12-10] VITALS: BP 110/60; TEMP 97.1; O2SAT 99
[2024-12-10 03:34] VITALS: BP 116/69; TEMP 97.2; O2SAT 96
[2024-12-10 08:31] VITALS: BP 108/66; TEMP 97.5; O2SAT 98
[2024-12-10] MEDS: SPIRONOLACTONE 25 MG TAB PO SCH (10:20)
[2024-12-10] MEDS: TORSEMIDE 10 MG TABLET PO SCH (10:21)
[2024-12-10 12:00] VITALS: BP 111/68; TEMP 97.6; O2SAT 98
[2024-12-10 16:32] VITALS: BP 107/66; TEMP 97.5; O2SAT 97
[2024-12-10 19:14] VITALS: BP 115/71; TEMP 98.2; O2SAT 100
[2024-12-11 04:09] VITALS: BP 105/65; TEMP 97.9; O2SAT 98
[2024-12-11 06:13] LABS: BASO # 0.1 10^3/uL (0.0-0.2); BASO % 0.5 % (0.0-1.0); EOS # 0.1 10^3/uL (0.0-0.5); EOS % 0.8 % (0.0-3.0); HEMATOCRIT 28.1 % (36.0-47.0); HEMOGLOBIN 8.8 g/dl (12.0-15.5); LYMPH # 1.1 10^3/uL (1.5-5.0); MEAN CORPUSCULAR HEMOGLOBIN 28.6 pg (27.0-33.0); MEAN CORPUSCULAR HGB CONC 31.3 g/dl (32.0-36.5); MEAN CORPUSCULAR VOLUME 91.2 fl (80.0-96.0); MONO % 10.6 % (2.0-8.0); NEUTROPHILS % 73.9 % (36.0-66.0); PLATELET COUNT, AUTOMATED 283 10^3/uL (150-450); RED BLOOD COUNT 3.08 10^6/uL (4.00-5.40); WHITE BLOOD COUNT 9.4 10^3/uL (4.0-10.0)
[2024-12-11 06:42] LABS: CALCIUM LEVEL 7.7 MG/DL (8.5-10.1); CREATININE FOR GFR 2.23 MG/DL (0.55-1.30); GLOMERULAR FILTRATION RATE 23.9 (>51); POTASSIUM SERUM 3.5 MMOL/L (3.5-5.1)
[2024-12-11 08:59] VITALS: BP 109/70; TEMP 98.8; O2SAT 98
[2024-12-11 12:20] VITALS: BP 110/70; TEMP 98.4; O2SAT 99
[2024-12-11] MEDS: BACITRACIN OINTMENT 30GM TUBE TOP ONE (15:18)
[2024-12-11 16:07] VITALS: BP 118/66
[2024-12-11 17:03] VITALS: BP 126/74; TEMP 98; O2SAT 99
[2024-12-11 19:31] VITALS: BP 127/75; TEMP 98; O2SAT 100
[2024-12-12] VITALS (7 sets, daily range): BP systolic 100–118; BP diastolic 59–77; TEMP 97.3–98.9; O2SAT 95–100
[2024-12-12 06:06] LABS: BASO # 0.1 10^3/uL (0.0-0.2); BASO % 0.6 % (0.0-1.0); EOS # 0.1 10^3/uL (0.0-0.5); EOS % 0.8 % (0.0-3.0); HEMOGLOBIN 8.5 g/dl (12.0-15.5); LYMPH % 8.7 % (24.0-44.0); MEAN CORPUSCULAR HEMOGLOBIN 29.5 pg (27.0-33.0); MEAN CORPUSCULAR HGB CONC 32.7 g/dl (32.0-36.5); MEAN CORPUSCULAR VOLUME 90.3 fl (80.0-96.0); MONO # 1.1 10^3/uL (0.0-0.8); MONO % 10.2 % (2.0-8.0); NEUTROPHILS # 8.5 10^3/uL (1.5-8.5); NEUTROPHILS % 78.3 % (36.0-66.0); PLATELET COUNT, AUTOMATED 274 10^3/uL (150-450); RED BLOOD COUNT 2.88 10^6/uL (4.00-5.40); WHITE BLOOD COUNT 10.9 10^3/uL (4.0-10.0)
[2024-12-12 06:20] LABS: CALCIUM LEVEL 7.8 MG/DL (8.5-10.1); CREATININE FOR GFR 2.21 MG/DL (0.55-1.30); GLOMERULAR FILTRATION RATE 24.2 (>51); POTASSIUM SERUM 3.4 MMOL/L (3.5-5.1)
[2024-12-12] MEDS: POTASSIUM CHLORIDE 10MEQ SR TABLET PO SCH (08:38)
[2024-12-12] MEDS: PANTOPRAZOLE 40MG TAB (PROTONIX) PO SCH (08:38)
[2024-12-13 03:09] VITALS: BP 114/68; TEMP 98.7; O2SAT 98
[2024-12-13 04:53] LABS: BASO # 0.1 10^3/uL (0.0-0.2); BASO % 0.4 % (0.0-1.0); EOS # 0.1 10^3/uL (0.0-0.5); EOS % 0.6 % (0.0-3.0); HEMATOCRIT 26.3 % (36.0-47.0); HEMOGLOBIN 8.6 g/dl (12.0-15.5); LYMPH # 1.1 10^3/uL (1.5-5.0); LYMPH % 8.5 % (24.0-44.0); MEAN CORPUSCULAR HEMOGLOBIN 29.8 pg (27.0-33.0); MEAN CORPUSCULAR HGB CONC 32.7 g/dl (32.0-36.5); MONO # 1.3 10^3/uL (0.0-0.8); MONO % 10.8 % (2.0-8.0); NEUTROPHILS # 9.7 10^3/uL (1.5-8.5); NEUTROPHILS % 78.7 % (36.0-66.0); PLATELET COUNT, AUTOMATED 293 10^3/uL (150-450); RED BLOOD COUNT 2.89 10^6/uL (4.00-5.40); WHITE BLOOD COUNT 12.4 10^3/uL (4.0-10.0)
[2024-12-13 05:38] LABS: CALCIUM LEVEL 7.8 MG/DL (8.5-10.1); CREATININE FOR GFR 2.29 MG/DL (0.55-1.30); GLOMERULAR FILTRATION RATE 23.2 (>51); POTASSIUM SERUM 4.8 MMOL/L (3.5-5.1)
[2024-12-13 07:47] VITALS: BP 102/64; TEMP 99.4; O2SAT 97
[2024-12-13 12:29] VITALS: BP 108/65
[2024-12-13 16:10] VITALS: BP 125/58; TEMP 98.3; O2SAT 98
[2024-12-13 20:39] VITALS: BP 105/66; TEMP 97.9; O2SAT 98
[2024-12-14 03:26] VITALS: BP 100/61; TEMP 97.3; O2SAT 97
[2024-12-14 06:10] LABS: BASO # 0.1 10^3/uL (0.0-0.2); BASO % 0.6 % (0.0-1.0); EOS # 0.1 10^3/uL (0.0-0.5); EOS % 0.7 % (0.0-3.0); HEMATOCRIT 25.4 % (36.0-47.0); HEMOGLOBIN 8.2 g/dl (12.0-15.5); LYMPH # 1.1 10^3/uL (1.5-5.0); LYMPH % 10.4 % (24.0-44.0); MEAN CORPUSCULAR HEMOGLOBIN 29.4 pg (27.0-33.0); MEAN CORPUSCULAR HGB CONC 32.3 g/dl (32.0-36.5); MONO # 1.5 10^3/uL (0.0-0.8); MONO % 13.5 % (2.0-8.0); NEUTROPHILS # 7.9 10^3/uL (1.5-8.5); NEUTROPHILS % 73.9 % (36.0-66.0); PLATELET COUNT, AUTOMATED 302 10^3/uL (150-450); RED BLOOD COUNT 2.79 10^6/uL (4.00-5.40); WHITE BLOOD COUNT 10.7 10^3/uL (4.0-10.0)
[2024-12-14 06:38] LABS: CALCIUM LEVEL 7.4 MG/DL (8.5-10.1); CREATININE FOR GFR 2.33 MG/DL (0.55-1.30); GLOMERULAR FILTRATION RATE 22.8 (>51); MAGNESIUM LEVEL 1.1 MG/DL (1.8-2.4)
[2024-12-14 08:40] VITALS: BP 103/69; TEMP 98.9; O2SAT 95
[2024-12-14] MEDS: MAG SULF 1GM/100ML (MAG RUN) 1 GM in IV 1 EA IV SCH (08:45)
[2024-12-14] MEDS: MAGNESIUM OXIDE 400MG TAB (MAG-OX) PO SCH (11:31)
[2024-12-14 11:32] VITALS: BP 103/63
[2024-12-14 16:13] VITALS: BP 112/71; TEMP 97.9; O2SAT 99
[2024-12-14 19:18] VITALS: BP 100/68; TEMP 97.8; O2SAT 99
[2024-12-14] MEDS: PANTOPRAZOLE 40MG TAB (PROTONIX) PO SCH (20:00)
[2024-12-15 03:14] VITALS: BP 96/58; TEMP 98.6; O2SAT 95
[2024-12-15 06:16] LABS: BASO # 0.1 10^3/uL (0.0-0.2); BASO % 0.8 % (0.0-1.0); EOS # 0.1 10^3/uL (0.0-0.5); EOS % 1.4 % (0.0-3.0); HEMATOCRIT 27.3 % (36.0-47.0); HEMOGLOBIN 8.6 g/dl (12.0-15.5); LYMPH # 1.5 10^3/uL (1.5-5.0); LYMPH % 20.5 % (24.0-44.0); MEAN CORPUSCULAR HEMOGLOBIN 28.6 pg (27.0-33.0); MEAN CORPUSCULAR HGB CONC 31.5 g/dl (32.0-36.5); MEAN CORPUSCULAR VOLUME 90.7 fl (80.0-96.0); MONO # 1.3 10^3/uL (0.0-0.8); MONO % 17.3 % (2.0-8.0); NEUTROPHILS # 4.4 10^3/uL (1.5-8.5); NEUTROPHILS % 59.3 % (36.0-66.0); PLATELET COUNT, AUTOMATED 359 10^3/uL (150-450); RED BLOOD COUNT 3.01 10^6/uL (4.00-5.40); WHITE BLOOD COUNT 7.4 10^3/uL (4.0-10.0)
[2024-12-15 06:39] LABS: CALCIUM LEVEL 8.1 MG/DL (8.5-10.1); CREATININE FOR GFR 2.55 MG/DL (0.55-1.30); GLOMERULAR FILTRATION RATE 20.5 (>51); POTASSIUM SERUM 4.4 MMOL/L (3.5-5.1)
[2024-12-15 07:51] VITALS: BP 108/63; TEMP 99.7; O2SAT 96
[2024-12-15 11:07] VITALS: TEMP 98.3
[2024-12-15 12:21] VITALS: BP 97/60
[2024-12-15] MEDS ORDERED: ALDA25TA2 PO (13:18)
[2024-12-15] MEDS ORDERED: MIDO10TA3 PO (13:18)
[2024-12-15] MEDS ORDERED: TORS10TA3 PO (13:18)
[2024-12-15 15:43] VITALS: BP 104/68
== END 2024-12-15 15:57 | disposition home or self-care (01) | DRG 673 ==
LOC: M ED 09:16 → EDBD 09:16 → M ED INP 15:25 → M ICU 16:55 → M MSPAV 12-03 12:58 → M PCU 12-04 09:12 → M ICU 12-04 19:01 → M PCU 12-09 10:51
PROVIDERS: ADMIT Internal Medicine Pulmonary Disease; ATTEND Internal Medicine Pulmonary Disease
PROC: 30233J1 Transfusion of Nonautologous Serum Albumin into Peripheral Vein, Percutaneous Approach (ICD-10-PCS; 2024-12-01)
PROC: B246ZZZ Ultrasonography of Right and Left Heart (ICD-10-PCS; 2024-12-01)
PROC: 30233N1 Transfusion of Nonautologous Red Blood Cells into Peripheral Vein, Percutaneous Approach (ICD-10-PCS; 2024-12-02)
PROC: 0W9G3ZZ Drainage of Peritoneal Cavity, Percutaneous Approach (ICD-10-PCS; 2024-12-03)
PROC: 30233K1 Transfusion of Nonautologous Frozen Plasma into Peripheral Vein, Percutaneous Approach (ICD-10-PCS; 2024-12-04)
PROC: 06HM33Z Insertion of Infusion Device into Right Femoral Vein, Percutaneous Approach (ICD-10-PCS; 2024-12-04)
PROC: 0W9G30Z Drainage of Peritoneal Cavity with Drainage Device, Percutaneous Approach (ICD-10-PCS; 2024-12-04)
PROC: 0W3F4ZZ Control Bleeding in Abdominal Wall, Percutaneous Endoscopic Approach (ICD-10-PCS; principal; 2024-12-04 19:30)
DX: N17.9 Acute kidney failure, unspecified (principal); K76.7 Hepatorenal syndrome; R57.8 Other shock; K66.1 Hemoperitoneum; E87.21 Acute metabolic acidosis; I50.42 Chronic combined systolic (congestive) and diastolic (congestive) heart failure; I13.0 Hypertensive heart and chronic kidney disease with heart failure and stage 1 through stage 4 chronic kidney disease, or unspecified chronic kidney disease; E87.1 Hypo-osmolality and hyponatremia; E87.3 Alkalosis; K76.6 Portal hypertension; D62 Acute posthemorrhagic anemia; K56.7 Ileus, unspecified; N39.0 Urinary tract infection, site not specified; D68.8 Other specified coagulation defects; Z66 Do not resuscitate; E87.5 Hyperkalemia; I34.0 Nonrheumatic mitral (valve) insufficiency; I95.9 Hypotension, unspecified; F17.200 Nicotine dependence, unspecified, uncomplicated; F10.20 Alcohol dependence, uncomplicated; K70.31 Alcoholic cirrhosis of liver with ascites; N18.30 Chronic kidney disease, stage 3 unspecified; D69.6 Thrombocytopenia, unspecified; D63.8 Anemia in other chronic diseases classified elsewhere; E03.9 Hypothyroidism, unspecified; M10.9 Gout, unspecified; G62.9 Polyneuropathy, unspecified; F39 Unspecified mood [affective] disorder; E83.51 Hypocalcemia; Z79.890 Hormone replacement therapy; Z79.899 Other long term (current) drug therapy; R00.0 Tachycardia, unspecified; R60.1 Generalized edema; R58 Hemorrhage, not elsewhere classified; R68.0 Hypothermia, not associated with low environmental temperature; R74.01 Elevation of levels of liver transaminase levels; E80.6 Other disorders of bilirubin metabolism; E83.39 Other disorders of phosphorus metabolism

== ENCOUNTER → 2024-12-17 | Outpatient (REF) | payer OTHER ==
[~2024-12-17] MED LIST changes: +ALDA25TA2 PO; +ALLO100T PO; +MIDO10TA3 PO; +TORS10TA3 PO
[2024-12-17 12:40] LABS: BASO # 0.1 10^3/uL (0.0-0.2); BASO % 0.6 % (0.0-1.0); EOS # 0.1 10^3/uL (0.0-0.5); EOS % 0.8 % (0.0-3.0); HEMATOCRIT 29.3 % (36.0-47.0); LYMPH # 1.5 10^3/uL (1.5-5.0); LYMPH % 10.4 % (24.0-44.0); MEAN CORPUSCULAR HEMOGLOBIN 29.3 pg (27.0-33.0); MEAN CORPUSCULAR HGB CONC 30.7 g/dl (32.0-36.5); MEAN CORPUSCULAR VOLUME 95.4 fl (80.0-96.0); MONO # 1.4 10^3/uL (0.0-0.8); NEUTROPHILS # 11.1 10^3/uL (1.5-8.5); NEUTROPHILS % 77.7 % (36.0-66.0); PLATELET COUNT, AUTOMATED 466 10^3/uL (150-450); RED BLOOD COUNT 3.07 10^6/uL (4.00-5.40); WHITE BLOOD COUNT 14.3 10^3/uL (4.0-10.0)
[2024-12-17 12:55] LABS: INR 1.23; PARTIAL THROMBOPLASTIN TIME 35.8 SECONDS (24.8-34.2); PROTHROMBIN TIME 15.8 SECONDS (12.5-14.5)
[2024-12-17 13:21] LABS: ALBUMIN 2.3 G/DL (3.2-5.2); BILIRUBIN,DIRECT 0.2 MG/DL (<0.4); BILIRUBIN,TOTAL 0.3 MG/DL (0.3-1.2); CALCIUM LEVEL 8.2 MG/DL (8.5-10.1); TOTAL PROTEIN 5.6 G/DL (5.7-8.2)
== END ==
LOC: M LAB REF 12:33
PROVIDERS: ATTEND Internal Medicine
DX: I10 Essential (primary) hypertension (principal)

== ENCOUNTER → 2024-12-24 | Outpatient (REF) | payer OTHER ==
[~2024-12-24] MED LIST changes: +CONS10SO3 PO
[2024-12-24 12:30] LABS: BASO % 0.5 % (0.0-1.0); EOS # 0.2 10^3/uL (0.0-0.5); HEMATOCRIT 25.5 % (36.0-47.0); HEMOGLOBIN 7.9 g/dl (12.0-15.5); LYMPH # 1.8 10^3/uL (1.5-5.0); LYMPH % 22.5 % (24.0-44.0); MEAN CORPUSCULAR HEMOGLOBIN 29.9 pg (27.0-33.0); MEAN CORPUSCULAR VOLUME 96.6 fl (80.0-96.0); MONO # 0.8 10^3/uL (0.0-0.8); MONO % 9.6 % (2.0-8.0); NEUTROPHILS # 5.1 10^3/uL (1.5-8.5); NEUTROPHILS % 63.6 % (36.0-66.0); PLATELET COUNT, AUTOMATED 314 10^3/uL (150-450); RED BLOOD COUNT 2.64 10^6/uL (4.00-5.40)
[2024-12-24 12:31] LABS: APPEARANCE, URINE MANUAL CLEAR (CLEAR); COLOR, URINE MANUAL LT YELLOW (YELLOW)
[2024-12-24 12:32] LABS: BILIRUBIN, URINE MANUAL NEGATIVE (NEGATIVE); BLOOD URINE MANUAL NEGATIVE (NEGATIVE); GLUCOSE, URINE (UA) MANUAL NEGATIVE (NEGATIVE); KETONE, URINE MANUAL NEGATIVE (NEGATIVE); LEUKOCYTE ESTERASE, URINE MAN TRACE (NEGATIVE); NITRITE, URINE MANUAL NEGATIVE (NEGATIVE); PROTEIN, URINE MANUAL TRACE mg/dL (NEGATIVE); UROBILINOGEN, URINE MANUAL NORMAL (NORMAL)
[2024-12-24 12:38] LABS: BACTERIA, URINE NONE SEEN; HYALINE CAST, URINE NONE SEEN /lpf (0-1); RBC, URINE NONE SEEN /hpf (0-3); SQUAMOUS EPITHELIAL CELL URINE MOD AMOUNT /hpf (SMALL AMT)
[2024-12-24 12:43] LABS: INR 1.08; PROTHROMBIN TIME 14.4 SECONDS (12.5-14.5)
[2024-12-24 12:57] LABS: TOTAL PROTEIN,RANDOM URINE 9.1 MG/DL (0.0-14.0)
[2024-12-24 13:02] LABS: CREATININE, URINE 64.1 MG/DL
[2024-12-24 13:03] LABS: MALB URINE SIEMENS < 3.0 MG/L
[2024-12-24 13:06] LABS: ALBUMIN 2.2 G/DL (3.2-5.2); BILIRUBIN,TOTAL 0.3 MG/DL (0.3-1.2); CALCIUM LEVEL 9.3 MG/DL (8.5-10.1); CREATININE FOR GFR 3.48 MG/DL (0.55-1.30); GLOMERULAR FILTRATION RATE 14.3 (>51); POTASSIUM SERUM 5.6 MMOL/L (3.5-5.1); TOTAL PROTEIN 5.5 G/DL (5.7-8.2)
== END ==
LOC: M LAB REF 12:01
PROVIDERS: ATTEND Internal Medicine
DX: I10 Essential (primary) hypertension (principal); I48.91 Unspecified atrial fibrillation; K70.30 Alcoholic cirrhosis of liver without ascites

== ENCOUNTER 2025-01-01 19:28 | Emergency (ER) | payer OTHER ==
[~2025-01-01] VITALS: Ht 162.6 cm; Wt 60.0 kg
[2025-01-01 20:13] LABS: KETONE, URINE AUTO RFX NEGATIVE (NEGATIVE); LEUKOCYTE ESTERASE UR AUTO RFX NEGATIVE (NEGATIVE); NITRITE, URINE AUTO RFX NEGATIVE (NEGATIVE); RBC, URINE AUTO RFX 0 /HPF (0-3); SQUAM EPITHELIAL CELL UR AURFX 1 /HPF (0-6); WBC, URINE AUTO RFX 0 /HPF (0-3)
[2025-01-01 20:29] LABS: BASO % 0.4 % (0.0-1.0); EOS # 0.1 10^3/uL (0.0-0.5); EOS % 1.3 % (0.0-3.0); HEMATOCRIT 26.6 % (36.0-47.0); HEMOGLOBIN 8.1 g/dl (12.0-15.5); LYMPH # 2.3 10^3/uL (1.5-5.0); MEAN CORPUSCULAR HEMOGLOBIN 29.8 pg (27.0-33.0); MEAN CORPUSCULAR HGB CONC 30.5 g/dl (32.0-36.5); MEAN CORPUSCULAR VOLUME 97.8 fl (80.0-96.0); MONO % 13.3 % (2.0-8.0); NEUTROPHILS # 4.3 10^3/uL (1.5-8.5); NEUTROPHILS % 55.5 % (36.0-66.0); PLATELET COUNT, AUTOMATED 290 10^3/uL (150-450); RED BLOOD COUNT 2.72 10^6/uL (4.00-5.40); WHITE BLOOD COUNT 7.8 10^3/uL (4.0-10.0)
[2025-01-01 20:53] LABS: ALBUMIN 2.6 G/DL (3.2-5.2); BILIRUBIN,DIRECT 0.2 MG/DL (<0.4); BILIRUBIN,TOTAL 0.4 MG/DL (0.3-1.2); CALCIUM LEVEL 10.2 MG/DL (8.5-10.1); CREATININE FOR GFR 2.87 MG/DL (0.55-1.30); GLOMERULAR FILTRATION RATE 17.9 (>51); POTASSIUM SERUM 5.2 MMOL/L (3.5-5.1); TOTAL PROTEIN 6.4 G/DL (5.7-8.2)
[2025-01-01] MEDS: cefTRIAXone SOD 1 GM in DEXTROSE 5% (D5W) ADV/MINI-BAG 50 ML IV ONE (22:05)
[2025-01-01] MEDS: metroNIDAZOLE 500 MG in IV 1 EA IV ONE (22:35)
[2025-01-01] MEDS ORDERED: MIDO10TA3 PO (22:41)
[2025-01-01] MEDS ORDERED: HOME MED LIST COMPLETE! XX SCH (22:45)
[2025-01-02] VITALS: BP 129/85; TEMP 98; O2SAT 99
[2025-01-02] MEDS: PATIROMER SORBITEX CALCIUM 8.4 GM POWDER PACKET (VELTASSA) PO ONE
== END 2025-01-02 00:01 | disposition home or self-care (01) ==
LOC: M ED 19:28
DX: E87.5 Hyperkalemia (principal); D64.9 Anemia, unspecified; N18.30 Chronic kidney disease, stage 3 unspecified; I50.22 Chronic systolic (congestive) heart failure; I11.0 Hypertensive heart disease with heart failure; E03.9 Hypothyroidism, unspecified; Z79.899 Other long term (current) drug therapy
CPT/HCPCS: 74176; 80048; 80076; 81001; 85025; 93041; 96365; 96366; 99284; J0696; J1836

== ENCOUNTER → 2025-02-28 | Outpatient (CLI) | payer OTHER ==
[~2025-02-28] MED LIST changes: +VANC125C13 PO; -VANC125C3 PO
[2025-02-28 10:36] LABS: BASO % 0.6 % (0.0-1.0); EOS # 0.1 10^3/uL (0.0-0.5); EOS % 0.8 % (0.0-3.0); HEMATOCRIT 31.6 % (36.0-47.0); HEMOGLOBIN 10.5 g/dl (12.0-15.5); LYMPH % 15.6 % (24.0-44.0); MEAN CORPUSCULAR HEMOGLOBIN 33.7 pg (27.0-33.0); MEAN CORPUSCULAR HGB CONC 33.2 g/dl (32.0-36.5); MEAN CORPUSCULAR VOLUME 101.3 fl (80.0-96.0); MONO # 0.6 10^3/uL (0.0-0.8); MONO % 9.5 % (2.0-8.0); NEUTROPHILS # 4.8 10^3/uL (1.5-8.5); NEUTROPHILS % 73.2 % (36.0-66.0); PLATELET COUNT, AUTOMATED 240 10^3/uL (150-450); RED BLOOD COUNT 3.12 10^6/uL (4.00-5.40); WHITE BLOOD COUNT 6.6 10^3/uL (4.0-10.0)
[2025-02-28 11:08] LABS: ALBUMIN 2.7 G/DL (3.2-5.2); BILIRUBIN,TOTAL 0.6 MG/DL (0.3-1.2); CALCIUM LEVEL 9.2 MG/DL (8.5-10.1); CREATININE FOR GFR 1.74 MG/DL (0.55-1.30); GLOMERULAR FILTRATION RATE 33.4 (>51); POTASSIUM SERUM 5.6 MMOL/L (3.5-5.1); TOTAL PROTEIN 6.2 G/DL (5.7-8.2)
== END ==
LOC: M LAB 10:03
PROVIDERS: ATTEND Internal Medicine Cardiovascular Disease
DX: I47.11 Inappropriate sinus tachycardia, so stated (principal); I48.0 Paroxysmal atrial fibrillation; I50.9 Heart failure, unspecified

== ENCOUNTER → 2025-02-28 | Outpatient (CLI) | payer OTHER ==
[2025-02-28 11:08] LABS: ALBUMIN 2.6 G/DL (3.2-5.2); CREATININE FOR GFR 1.73 MG/DL (0.55-1.30); GLOMERULAR FILTRATION RATE 33.6 (>51); PHOSPHORUS LEVEL 4.8 MG/DL (2.5-4.9); POTASSIUM SERUM 5.6 MMOL/L (3.5-5.1)
== END ==
LOC: M LAB 10:05
PROVIDERS: ATTEND Internal Medicine Nephrology
DX: N18.32 Chronic kidney disease, stage 3b (principal)